=== PATIENT | male | born 1950 | race Caucasian/White ===

== ENCOUNTER 2024-03-27 15:24 | Inpatient (IN) ==
[2024-03-27 15:52] LABS: Base Excess VBG 1.5 mEq/L; HCO3 VBG 26 mmol/L; Oxygen Saturation VBG 94.7 %; PCO2 VBG 39 mmHg (38-50); PO2 VBG 67 mmHg; pH VBG 7.43 (7.36-7.41)
[2024-03-27 15:54] LABS: iSTAT Creatinine 3.1 mg/dl (0.6-1.3); iSTAT Hemoglobin 13.3 g/dl (14.0-18.0); iSTAT Ionized Calcium 1.07 mmol/l (1.12-1.32); iSTAT Potassium 3.8 mmol/L (3.3-5.0)
--- NOTE | 2024-03-27 15:56 | XRay Report ---
EXAM: Radiograph of the Chest 1 View INDICATION: Sepsis. TECHNIQUE: Frontal view of the chest. COMPARISON: No relevant prior studies available. FINDINGS: Lungs and pleural spaces: There is either a small medial left basilar infiltrate or small hiatal hernia. No pleural effusion or pneumothorax. Heart: Shape and configuration within normal limits allowing for technique. Mediastinum: See above. Bones/joints: Scoliotic spine without acute osseous abnormality. Soft tissues: No abnormality noted. No radiopaque foreign body noted. Upper abdomen: No abnormality noted. IMPRESSION: There is either a small medial left basilar infiltrate or small hiatal hernia. ACT 112: Negative or not required by law. Electronically signed by Jessica Brito 03-27-2024 3:55 PM
[2024-03-27 16:05] LABS: Basophils # (auto) 0.03 K/uL (0.00-0.20); Basophils % (auto) 0.2 %; Hematocrit (blood only) 38.9 % (42.0-52.0); Hemoglobin 12.9 g/dl (14.0-18.0); Immature Granulocytes # (auto) 0.27 K/uL (0.01-0.20); Immature Granulocytes % (auto) 1.5 %; Lymphocytes # (auto) 0.66 K/uL (1.20-3.40); Lymphocytes % (auto) 3.7 %; Mean Corpuscular Hemoglobin 30.1 pg (25.0-34.0); Mean Corpuscular Hgb Conc 33.2 g/dL (32.0-36.0); Mean Corpuscular Volume 90.7 fL (80.0-100.0); Mean Platelet Volume 9.8 fL (9.4-12.4); Monocytes # (auto) 1.71 K/uL (0.11-0.59); Monocytes % (auto) 9.5 %; Neutrophils # (auto) 15.34 K/uL (1.40-6.50); Neutrophils % (auto) 85.1 %; Platelet Count 129 K/uL (130-400); RDW Coefficient of Variation 13.2 % (11.5-14.5); RDW Standard Deviation 43.8 fL (36.4-46.3); Red Blood Count 4.29 M/uL (4.70-6.10); White Blood Count 18.01 K/ul (4.8-10.8)
--- NOTE | 2024-03-27 16:14 | CT Scan Report ---
EXAM: CT Abdomen and Pelvis Without Intravenous Contrast INDICATION: Nausea and vomiting. Fever. TECHNIQUE: Axial computed tomography images of the abdomen and pelvis without intravenous contrast. Sagittal and coronal reformatted images were created and reviewed. This CT exam was performed using one or more of the following dose reduction techniques: automated exposure control, adjustment of the mA and/or kV according to patient size, and/or use of iterative reconstruction technique. COMPARISON: No relevant prior studies available. FINDINGS: Limitations: None. Lung bases: There is dependent atelectasis. Pleural space: Trace layering bilateral pleural effusions present. Heart: Mild cardiomegaly. No pericardial effusion. Mediastinum: No abnormality noted. ABDOMEN: Liver: Lack of intravenous contrast limits detection of some masses. No abnormality noted. Gallbladder and bile ducts: No calcified stones or surrounding fluid. Pancreas: No pancreatic mass, calcification, inflammation or ductal dilation noted. Spleen: No significant abnormality noted. Adrenals: No significant abnormality noted. Kidneys and ureters: Bilateral renal cortical and perinephric scarring noted. No urinary gas, hydronephrosis or perinephric fluid. Stomach and bowel: Scattered stool in the colon. No intestinal thickening, adjacent inflammation or obstruction. Suboptimally assessed collapsed stomach. PELVIS: Appendix: No findings to suggest acute appendicitis. Bladder: Appears normal for the degree of filling. No stones or inflammation. No large mass. Masses may not be detected in the absence of opacification. Reproductive: Cystic structure right scrotum could be a hydrocele or cyst. Appearance benign. ABDOMEN and PELVIS: Intraperitoneal space: Trace fluid in the pelvis. Bones/joints: Degenerative changes noted throughout the spine. No acute osseous abnormality seen. Diffuse spinal degenerative change. No acute osseous abnormality. There is L4-L5 spinal stenosis. No paraspinal soft tissue edema or fluid. Vasculature: The aorta is atherosclerotic. The distal aorta is aneurysmal to 3.4 cm. No hemorrhage or rupture. Lymph nodes: No pathologically enlarged lymph nodes. IMPRESSION: 1. Very small amounts of nonspecific free fluid in the pelvis without abscess, inflammation or intestinal obstruction. 2. Trace bilateral pleural effusions and dependent atelectasis. 3. 3.4 cm distal abdominal aortic aneurysm without rupture. Recommend abdomen/pelvis CT or MR imaging follow-up in 3 years. ACT 112: Negative or not required by law. Electronically signed by Jessica Brito 03-27-2024 4:13 PM
--- NOTE | 2024-03-27 16:16 | CT Scan Report ---
EXAM: CT Head Without Intravenous Contrast INDICATION: Lethargy. Fever. TECHNIQUE: Axial computed tomography images of the head/brain without intravenous contrast. Sagittal and/or coronal reformats are provided. Sagittal and coronal reformatted images were created and reviewed. This CT exam was performed using one or more of the following dose reduction techniques: automated exposure control, adjustment of the mA and/or kV according to patient size, and/or use of iterative reconstruction technique. COMPARISON: No relevant prior studies available. FINDINGS: Limitations: None. Brain and extra-axial spaces: There is age appropriate cortical atrophy and chronic ischemic periventricular white matter hypodensity. No acute infarct, hemorrhage or mass noted. Bones/joints: No acute changes. Soft tissues: No significant abnormality noted. Vasculature: Atherosclerotic calcification in the vertebral and carotid arteries. Sinuses: No layering fluid in the visualized portions of the paranasal sinuses. Mastoid air cells: Chronic mucosal thickening left middle ear and mastoid air cells. Orbits: No significant abnormality noted. IMPRESSION: 1. Cerebral atrophy. No acute changes. 2. Chronic left otomastoiditis. ACT 112: Negative or not required by law. Electronically signed by Jessica Brito 03-27-2024 4:15 PM
--- NOTE | 2024-03-27 16:20 | Emergency Department Note ---
History of Present Illness General Chief complaint: Stroke/CVA Symptoms Time Seen by Provider: 03/27/24 15:30 Source: family and EMS History of Present Illness Provider complaint: Altered mental status 73-year-old male presents emergency department via EMS for altered mental status. Family reports that for the last 2 days patient has been having increased confusion. 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 They state that yesterday he started having diarrhea and was complaining of right ear pain and then progressively getting more confused throughout the day. EMS reports that when they got there the patient had a right-sided facial droop was confused and had a temperature of 102.1. EMS initiated IV fluids and 1 g of IV Tylenol. Patient was 90% on room air and after supplemental oxygen via nasal cannula was 96% on 2 L nasal cannula. 300 cc normal saline given by the EMS crew. Home Medications Medication Instructions Recorded Confirmed Type lisinopril 20 mg tablet 20 mg PO HS 03/27/24 03/27/24 History Allergies Allergy/AdvReac Type Severity Reaction Status Date / Time No Known Allergies Allergy Unverified 03/27/24 18:06 Past Med/Surg History Problem List (Updated 03/27/24 @ 21:25 by Kristian Martinez MD) YOSEPH (acute kidney injury) (Acute) Altered mental status (Acute) Sepsis HTN (hypertension) Social History Smoking Status: Never smoker Physical Exam Vital Signs Vital Signs - 24 hr 03/27/24 15:30 03/27/24 16:04 03/27/24 16:15 Temperature 37.0 C 37.0 C Temperature Source Oral Rectal Pulse Rate 97 H 100 H Pulse Rate [Apical] 86 Pulse Rate from SpO2 Sensor Respiratory Rate 22 20 Respiratory Effort / Characteristics Respiratory Depth Respiratory Pattern Blood Pressure 147/80 H Blood Pressure [Right Arm] 135/82 Blood Pressure Mean 102 Blood Pressure Mean [Right Arm] 99 Pulse Oximetry 94 95 Oxygen Delivery Method Room Air Room Air Oxygen Flow Rate Sepsis Recent Fever Within 48 Hours Yes Sepsis New/Unexplained Change in Mental Status Yes Sepsis Action Taken by Nursing Physician Notified 03/27/24 16:23 03/27/24 16:45 03/27/24 17:00 Temperature Temperature Source Pulse Rate 84 Pulse Rate [Apical] 84 Pulse Rate from SpO2 Sensor 83 Respiratory Rate 18 18 Respiratory Effort / Characteristics Respiratory Depth Respiratory Pattern Blood Pressure 156/90 H Blood Pressure [Right Arm] 154/84 H Blood Pressure Mean 106 Blood Pressure Mean [Right Arm] 107 Pulse Oximetry 96 94 Oxygen Delivery Method Room Air Room Air Oxygen Flow Rate Sepsis Recent Fever Within 48 Hours Sepsis New/Unexplained Change in Mental Status Sepsis Action Taken by Nursing 03/27/24 17:12 03/27/24 17:30 03/27/24 18:00 Temperature Temperature Source Pulse Rate 82 79 88 Pulse Rate [Apical] Pulse Rate from SpO2 Sensor 80 87 Respiratory Rate 17 13 18 Respiratory Effort / Characteristics Respiratory Depth Respiratory Pattern Blood Pressure 143/80 H 152/83 H Blood Pressure [Right Arm] Blood Pressure Mean 101 106 Blood Pressure Mean [Right Arm] Pulse Oximetry 95 94 Oxygen Delivery Method Oxygen Flow Rate Sepsis Recent Fever Within 48 Hours Sepsis New/Unexplained Change in Mental Status Sepsis Action Taken by Nursing 03/27/24 18:15 03/27/24 18:23 03/27/24 18:30 Temperature Temperature Source Pulse Rate 83 Pulse Rate [Apical] 86 Pulse Rate from SpO2 Sensor 84 Respiratory Rate 18 16 Respiratory Effort / Characteristics Non-Labored Spontaneous Respiratory Depth Normal Respiratory Pattern Regular Blood Pressure 148/86 H 154/78 H Blood Pressure [Right Arm] 153/93 H Blood Pressure Mean 106 102 Blood Pressure Mean [Right Arm] 113 Pulse Oximetry 95 95 Oxygen Delivery Method Room Air Oxygen Flow Rate Sepsis Recent Fever Within 48 Hours Sepsis New/Unexplained Change in Mental Status Sepsis Action Taken by Nursing 03/27/24 18:45 03/27/24 18:48 03/27/24 19:24 Temperature Temperature Source Pulse Rate 83 Pulse Rate [Apical] 88 Pulse Rate from SpO2 Sensor 82 68 Respiratory Rate 18 26 H Respiratory Effort / Characteristics Non-Labored Spontaneous Respiratory Depth Normal Respiratory Pattern Regular Blood Pressure 167/90 H Blood Pressure [Right Arm] 154/78 H Blood Pressure Mean 115 Blood Pressure Mean [Right Arm] 103 Pulse Oximetry 96 98 99 Oxygen Delivery Method Nasal Cannula Oxygen Flow Rate 2 Sepsis Recent Fever Within 48 Hours Sepsis New/Unexplained Change in Mental Status Sepsis Action Taken by Nursing 03/27/24 19:41 03/27/24 19:41 03/27/24 19:41 Temperature Temperature Source Pulse Rate Pulse Rate [Apical] Pulse Rate from SpO2 Sensor 68 Respiratory Rate Respiratory Effort / Characteristics Respiratory Depth Respiratory Pattern Blood Pressure 110/67 110/67 110/67 Blood Pressure [Right Arm] Blood Pressure Mean 82 82 82 Blood Pressure Mean [Right Arm] Pulse Oximetry 99 Oxygen Delivery Method Oxygen Flow Rate Sepsis Recent Fever Within 48 Hours Sepsis New/Unexplained Change in Mental Status Sepsis Action Taken by Nursing 03/27/24 19:42 03/27/24 19:45 03/27/24 20:22 Temperature Temperature Source Pulse Rate 69 73 Pulse Rate [Apical] 79 Pulse Rate from SpO2 Sensor 69 73 Respiratory Rate 19 16 18 Respiratory Effort / Characteristics Respiratory Depth Respiratory Pattern Blood Pressure Blood Pressure [Right Arm] 109/65 Blood Pressure Mean Blood Pressure Mean [Right Arm] 79 Pulse Oximetry 99 98 95 Oxygen Delivery Method Room Air Oxygen Flow Rate Sepsis Recent Fever Within 48 Hours Sepsis New/Unexplained Change in Mental Status Sepsis Action Taken by Nursing Physical Exam GENERAL: Ill-appearing. HENT: Exam performed. - Head: Normocephalic and atraumatic. - Right Ear: External ear normal. No mastoid erythema or tenderness. Right- sided tympanic membrane navarro and pearly. - Left Ear: External ear normal. No mastoid erythema or tenderness.'s cerumen impacted auditory canal. - Mouth/Throat: Dry mucous membranes. EYES: Conjunctivae and EOM are normal. Pupils are equal, round, and reactive to light. Right eye exhibits no discharge. Left eye exhibits no discharge. No scleral icterus. NECK: No JVD present. No carotid bruit present. CV: Normal rate, regular rhythm, normal heart sounds and intact distal pulses. There is no peripheral edema. Palpable radial pulses bue. PULM/CHEST: Rhonchi bilaterally. ABD: The abdomen is soft. There is no tenderness. There is no rebound, no guarding NEURO: Patient appears confused and is unable to provide history or follow commands. GCS: 11 (E:4, V:3, M:4). Mild right-sided facial droop. Course Course 1530: The patient was evaluated in room A9. A complete history and physical exam was performed Cardiac monitoring: An order was placed for continuous cardiac monitoring. The monitor shows a rate of 90 with sinus rhythm interpreted by nm Sepsis protocols were initiated. 1546: Patient's [id number]-[id number] creatinine is elevated. Will obtain CT without contrast. 1715: Vital signs stable. Patient afebrile in the emergency department. Leukocytosis of 18. Lactic acid within normal limits. Urinalysis might be the culprit, Rocephin empirically ordered for the patient. 1759: Vital signs stable. On reassessment the patient appears much better. He is now alert and oriented x 3. He is not reporting any headache difficulty breathing chest pain abdominal pain. On reassessment, patient has negative Brudzinski sign and negative Kernig sign. No photophobia. GCS now 15. Patient is not reporting any headache. No facial droop on reassessment. I did attempt to use a curette to remove some of the wax from the patient's left ear and while significant amount was removed the tympanic membrane was still not able to be fully visualized. I did consider diagnosis of meningitis/encephalitis however after the reassessment of the patient not reporting any headache, now having a GCS of 15, no photophobia, no meningeal signs, and being alert and oriented x 3 I think this is less likely. I did discuss the possibility of performing lumbar puncture with the patient and the family at bedside and the family and patient at bedside states that they do not want to perform this unless absolutely necessary. They are in agreement for admission to the hospital. Other differentials could be bacteremia versus any sort of GI illness as the patient's family was reporting that he was having diarrhea yesterday. Stool studies are pending. Will discuss the case with hospitalist team about admission. 185: Discussed the case with on-call neurology Dr. Rios as well as [facility] hospitalist Dr. Ceja. After discussing with the 2 of them, they thought it would be best to attempt LP to rule out meningitis/encephalitis. I discussed this with the patient's son who is in agreement with the plan after discussing with the hospitalist also. Consent was signed by son and placed on the chart. 1945: LP was attempted however was not successful in getting CSF sample despite multiple attempts in both the seated upright and lateral decubitus position. Family as well as [facility] hospitalist team were made aware of this. Ampicillin, acyclovir, and vancomycin was ordered for coverage of any possible encephalitis/meningitis. [facility] hospitalist team will contact IR in the morning to perform lumbar puncture. 2100: Patient resting comfortably. Patient neurovascular intact with palpable DP and PT pulses and motor and sensation intact in the bilateral lower extremities. Administered Medications Discontinued Medications Sodium Chloride (Nss) 1,000 mls @ 999 mls/hr IV .Q1H1M ONE Stop: 03/27/24 17:33 Last Infusion: 03/27/24 17:31 Dose: Infused Documented By: Admin: 03/27/24 16:33 Dose: 999 mls/hr Documented By: CHARLY Ceftriaxone Sodium (Rocephin) 2,000 mg in 50 mls @ 100 mls/hr IV NOW STA Stop: 03/27/24 17:02 Last Infusion: 03/27/24 17:16 Dose: Infused Documented By: Admin: 03/27/24 16:46 Dose: 100 mls/hr Documented By: CHARLY Sodium Chloride (Nss) 1,000 mls @ 125 mls/hr IV .Q8H DONNA Stop: 03/28/24 17:59 Last Admin: 03/27/24 19:45 Dose: 125 mls/hr Documented By: CHARLY Lidocaine HCl (Lidocaine 1% Local 20 Ml Vial) Confirm Administered Dose 1 ml .ROUTE .STK-MED ONE Stop: 03/27/24 18:36 Last Admin: 03/27/24 19:46 Dose: Not Given Documented By: CHARLY Lorazepam (Lorazepam 1 Mg/1 Ml Syr Ed Inj Use) 2 mg IV ONE STA Stop: 03/27/24 18:44 Last Admin: 03/27/24 18:55 Dose: 1 mg Documented By: CHARLY Morphine Sulfate (Morphine Sulfate 4 Mg/Ml 1 Ml Carp\Vial) Confirm Administered Dose 4 mg .ROUTE .STK-MED ONE Stop: 03/27/24 18:42 Last Admin: 03/27/24 18:50 Dose: 4 mg Documented By: CHARLY Morphine Sulfate (Morphine Sulfate 4 Mg/Ml 1 Ml Carp\Vial) 4 mg IV NOW STA Stop: 03/27/24 18:44 Last Admin: 03/27/24 18:49 Dose: Not Given Documented By: KRISTOFER Ondansetron HCl (Ondansetron Inj 2 Mg/Ml 2 Ml Vial) Confirm Administered Dose 4 mg .ROUTE .STK-MED ONE Stop: 03/27/24 18:42 Last Admin: 03/27/24 18:46 Dose: 4 mg Documented By: KRISTOFER Medical Decision Making Laboratory Data Attestation: I reviewed the patient's lab results. 03/27/24 15:37 03/27/24 15:37 Lab Results 01/12/25 01/12/25 01/12/25 Range/Units 15:37 15:42 16:22 WBC 18.01 H (4.8-10.8) K/ul RBC 4.29 L (4.70-6.10) M/uL Hgb 12.9 L (14.0-18.0) g/dl POC Hgb 13.3 L (14.0-18.0) g/dl Hct 38.9 L (42.0-52.0) % POC Hct 39 L (42-52) % MCV 90.7 (80.0-100.0) fL MCH 30.1 (25.0-34.0) pg MCHC 33.2 (32.0-36.0) g/dL RDW Std Deviation 43.8 (36.4-46.3) fL RDW Coeff of Shaji 13.2 (11.5-14.5) % Plt Count 129 L (130-400) K/uL MPV 9.8 (9.4-12.4) fL Immature Gran % (Auto) 1.5 % Neut % (Auto) 85.1 % Lymph % (Auto) 3.7 % Rich % (Auto) 9.5 % Eos % (Auto) 0.0 % Baso % (Auto) 0.2 % Neut # (Auto) 15.34 H (1.40-6.50) K/uL Lymph # (Auto) 0.66 L (1.20-3.40) K/uL Rich # (Auto) 1.71 H (0.11-0.59) K/uL Eos # (Auto) 0.00 (0.00-0.50) K/uL Baso # (Auto) 0.03 (0.00-0.20) K/uL Immature Gran # (Auto) 0.27 H (0.01-0.20) K/uL PT 12.7 H (9.0-12.0) Seconds INR 1.2 H (0.9-1.1) APTT 32 H (21-31) Seconds PTT Ratio 1.2 VBG pH 7.43 H (7.36-7.41) VBG pCO2 39 (38-50) mmHg VBG pO2 67 mmHg VBG HCO3 26 mmol/L VBG O2 Saturation 94.7 % VBG Base Excess 1.5 mEq/L POC Sodium 136 (135-144) mmol/L Sodium 136 (136-145) mmol/L POC Potassium 3.8 (3.3-5.0) mmol/L Potassium 3.9 (3.5-5.1) mmol/L POC Chloride 103 (101-112) mmol/L Chloride 102 (98-107) mmol/L Carbon Dioxide 24 (21-32) mmol/L POC Total CO2 22 L (24-31) mmol/L Anion Gap 10 (3-11) POC Anion Gap 16.0 (16-25) mmol/L POC BUN 43 H (7-18) mg/dl BUN 48 H (6-23) mg/dl Creatinine 2.81 H (0.6-1.4) mg/dl POC Creatinine 3.1 H (0.6-1.3) mg/dl Est Cr Clr Drug Dosing 22.7 ml/min eGFR 23.00 BUN/Creatinine Ratio 17.1 (10-20) Glucose 129 H (70-99(Fasting)) mg/dl POC Glucose (other) 132 H (70-99) mg/dl Lactate 0.7 (0.4-2.0) mmol/L Calcium 8.5 L (8.6-10.3) mg/dl POC Ioniz Calcium Justina 1.07 L (1.12-1.32) mmol/l Magnesium 1.9 (1.7-2.4) mg/dl Total Bilirubin 0.9 (0.2-1.0) mg/dl Direct Bilirubin 0.2 (0-0.2) mg/dl AST 20 (13-39) U/L ALT 23 (7-52) U/L Alkaline Phosphatase 61 (34-104) U/L Troponin I High Sens 74.9 H* (0-20) pg/ml Total Protein 6.1 (6.0-8.3) gm/dl Albumin 3.5 (3.4-5.0) gm/dl Lipase 30 (11-82) U/L Procalcitonin 4.07 H (0-0.5) ng/ml Urine Color Urine Appearance (Clear) Urine pH (4.5-7.5) Ur Specific [place] (1.000-1.030) Urine Protein (Negative) Urine Glucose (UA) (Negative) Urine Ketones (Negative) Urine Blood (Negative) Urine Nitrite (Negative) Urine Bilirubin (Negative) Urine Urobilinogen (Negative) Ur Leukocyte Esterase (Negative) Urine WBC (Auto) (0-5) /hpf Urine RBC (Auto) (0-2) /hpf U Hyaline Cast (Auto) (0-2) /lpf U Epithel Cells (Auto) (0-2) /hpf Urine Bacteria (Auto) (None Seen) Adenovirus (PCR) Not Detected (NotDetected) Anaplasma Smear See Comment Babesia Smear See Comment B. pertussis DNA (PCR) Not Detected (NotDetected) B.parapertussis DNA PCR Not Detected (NotDetected) Lyme Disease Screen Negative (Negative) C. pneumoniae DNA (PCR) Not Detected (NotDetected) Coronavirus OC43 (PCR) Not Detected (NotDetected) Coronavirus HKU1 (PCR) Not Detected (NotDetected) Coronavirus 229E (PCR) Not Detected (NotDetected) SARS-CoV-2 (PCR) Not Detected (NotDetected) Coronavirus NL63 (PCR) Not Detected (NotDetected) Human Metapneumovir PCR Not Detected (NotDetected) Influenza Type A (PCR) Not Detected (NotDetected) Influenza Type B (PCR) Not Detected (NotDetected) M. pneumoniae (PCR) Not Detected (NotDetected) Parainfluenza 1 (PCR) Not Detected (NotDetected) Parainfluenza 2 (PCR) Not Detected (NotDetected) Parainfluenza 3 (PCR) Not Detected (NotDetected) Parainfluenza 4 (PCR) Not Detected (NotDetected) RSV (PCR) Not Detected (NotDetected) Entero/Rhino (PCR) Not Detected (NotDetected) 03/27/24 03/27/24 Range/Units 17:05 18:02 WBC (4.8-10.8) K/ul RBC (4.70-6.10) M/uL Hgb (14.0-18.0) g/dl POC Hgb (14.0-18.0) g/dl Hct (42.0-52.0) % POC Hct (42-52) % MCV (80.0-100.0) fL MCH (25.0-34.0) pg MCHC (32.0-36.0) g/dL RDW Std Deviation (36.4-46.3) fL RDW Coeff of Shaji (11.5-14.5) % Plt Count (130-400) K/uL MPV (9.4-12.4) fL Immature Gran % (Auto) % Neut % (Auto) % Lymph % (Auto) % Rich % (Auto) % Eos % (Auto) % Baso % (Auto) % Neut # (Auto) (1.40-6.50) K/uL Lymph # (Auto) (1.20-3.40) K/uL Rich # (Auto) (0.11-0.59) K/uL Eos # (Auto) (0.00-0.50) K/uL Baso # (Auto) (0.00-0.20) K/uL Immature Gran # (Auto) (0.01-0.20) K/uL PT (9.0-12.0) Seconds INR (0.9-1.1) APTT (21-31) Seconds PTT Ratio VBG pH (7.36-7.41) VBG pCO2 (38-50) mmHg VBG pO2 mmHg VBG HCO3 mmol/L VBG O2 Saturation % VBG Base Excess mEq/L POC Sodium (135-144) mmol/L Sodium (136-145) mmol/L POC Potassium (3.3-5.0) mmol/L Potassium (3.5-5.1) mmol/L POC Chloride (101-112) mmol/L Chloride (98-107) mmol/L Carbon Dioxide (21-32) mmol/L POC Total CO2 (24-31) mmol/L Anion Gap (3-11) POC Anion Gap (16-25) mmol/L POC BUN (7-18) mg/dl BUN (6-23) mg/dl Creatinine (0.6-1.4) mg/dl POC Creatinine (0.6-1.3) mg/dl Est Cr Clr Drug Dosing ml/min eGFR BUN/Creatinine Ratio (10-20) Glucose (70-99(Fasting)) mg/dl POC Glucose (other) (70-99) mg/dl Lactate (0.4-2.0) mmol/L Calcium (8.6-10.3) mg/dl POC Ioniz Calcium Justina (1.12-1.32) mmol/l Magnesium (1.7-2.4) mg/dl Total Bilirubin (0.2-1.0) mg/dl Direct Bilirubin (0-0.2) mg/dl AST (13-39) U/L ALT (7-52) U/L Alkaline Phosphatase (34-104) U/L Troponin I High Sens 92.1 H* D (0-20) pg/ml Total Protein (6.0-8.3) gm/dl Albumin (3.4-5.0) gm/dl Lipase (11-82) U/L Procalcitonin (0-0.5) ng/ml Urine Color Yellow Urine Appearance Clear (Clear) Urine pH 7.0 (4.5-7.5) Ur Specific [place] 1.018 (1.000-1.030) Urine Protein 2+ H (Negative) Urine Glucose (UA) Negative (Negative) Urine Ketones Negative (Negative) Urine Blood Negative (Negative) Urine Nitrite Negative (Negative) Urine Bilirubin Negative (Negative) Urine Urobilinogen Negative (Negative) Ur Leukocyte Esterase Negative (Negative) Urine WBC (Auto) 0-5 (0-5) /hpf Urine RBC (Auto) 0-2 (0-2) /hpf U Hyaline Cast (Auto) 0-2 (0-2) /lpf U Epithel Cells (Auto) 0-2 (0-2) /hpf Urine Bacteria (Auto) None Seen (None Seen) Adenovirus (PCR) (NotDetected) Anaplasma Smear Babesia Smear B. pertussis DNA (PCR) (NotDetected) B.parapertussis DNA PCR (NotDetected) Lyme Disease Screen (Negative) C. pneumoniae DNA (PCR) (NotDetected) Coronavirus OC43 (PCR) (NotDetected) Coronavirus HKU1 (PCR) (NotDetected) Coronavirus 229E (PCR) (NotDetected) SARS-CoV-2 (PCR) (NotDetected) Coronavirus NL63 (PCR) (NotDetected) Human Metapneumovir PCR (NotDetected) Influenza Type A (PCR) (NotDetected) Influenza Type B (PCR) (NotDetected) M. pneumoniae (PCR) (NotDetected) Parainfluenza 1 (PCR) (NotDetected) Parainfluenza 2 (PCR) (NotDetected) Parainfluenza 3 (PCR) (NotDetected) Parainfluenza 4 (PCR) (NotDetected) RSV (PCR) (NotDetected) Entero/Rhino (PCR) (NotDetected) Imaging Data Attestation: I personally reviewed and interpreted this imaging study as follows: My Impression: Chest x-ray: Chest x-ray negative. Airway clear. No pneumothorax. No consolidation. No cardiomegaly or cephalization.. No free air under the diaphragm. No fractures of the skeletal structures. CT head: No [facility] Radiologist's Impression: Chest X-Ray 03/27/24 15:30 EXAM: Radiograph of the Chest 1 View INDICATION: Sepsis. TECHNIQUE: Frontal view of the chest. COMPARISON: No relevant prior studies available. FINDINGS: Lungs and pleural spaces: There is either a small medial left basilar infiltrate or small hiatal hernia. No pleural effusion or pneumothorax. Heart: Shape and configuration within normal limits allowing for technique. Mediastinum: See above. Bones/joints: Scoliotic spine without acute osseous abnormality. Soft tissues: No abnormality noted. No radiopaque foreign body noted. Upper abdomen: No abnormality noted. IMPRESSION: There is either a small medial left basilar infiltrate or small hiatal hernia. ACT 112: Negative or not required by law. Electronically signed by Jessica Brito 03-27-2024 3:[address] 03/27/24 15:30 EXAM: CT Head Without Intravenous Contrast INDICATION: Lethargy. Fever. TECHNIQUE: Axial computed tomography images of the head/brain without intravenous contrast. Sagittal and/or coronal reformats are provided. Sagittal and coronal reformatted images were created and reviewed. This CT exam was performed using one or more of the following dose reduction techniques: automated exposure control, adjustment of the mA and/or kV according to patient size, and/or use of iterative reconstruction technique. COMPARISON: No relevant prior studies available. FINDINGS: Limitations: None. Brain and extra-axial spaces: There is age appropriate cortical atrophy and chronic ischemic periventricular white matter hypodensity. No acute infarct, hemorrhage or mass noted. Bones/joints: No acute changes. Soft tissues: No significant abnormality noted. Vasculature: Atherosclerotic calcification in the vertebral and carotid arteries. Sinuses: No layering fluid in the visualized portions of the paranasal sinuses. Mastoid air cells: Chronic mucosal thickening left middle ear and mastoid air cells. Orbits: No significant abnormality noted. IMPRESSION: 1. Cerebral atrophy. No acute changes. 2. Chronic left otomastoiditis. ACT 112: Negative or not required by law. Electronically signed by Daryl Jessica 03-27-2024 4:15 PM Abdomen/Pelvis CT 03/27/24 15:46 EXAM: CT Abdomen and Pelvis Without Intravenous Contrast INDICATION: Nausea and vomiting. Fever. TECHNIQUE: Axial computed tomography images of the abdomen and pelvis without intravenous contrast. Sagittal and coronal reformatted images were created and reviewed. This CT exam was performed using one or more of the following dose reduction techniques: automated exposure control, adjustment of the mA and/or kV according to patient size, and/or use of iterative reconstruction technique. COMPARISON: No relevant prior studies available. FINDINGS: Limitations: None. Lung bases: There is dependent atelectasis. Pleural space: Trace layering bilateral pleural effusions present. Heart: Mild cardiomegaly. No pericardial effusion. Mediastinum: No abnormality noted. ABDOMEN: Liver: Lack of intravenous contrast limits detection of some masses. No abnormality noted. Gallbladder and bile ducts: No calcified stones or surrounding fluid. Pancreas: No pancreatic mass, calcification, inflammation or ductal dilation noted. Spleen: No significant abnormality noted. Adrenals: No significant abnormality noted. Kidneys and ureters: Bilateral renal cortical and perinephric scarring noted. No urinary gas, hydronephrosis or perinephric fluid. Stomach and bowel: Scattered stool in the colon. No intestinal thickening, adjacent inflammation or obstruction. Suboptimally assessed collapsed stomach. PELVIS: Appendix: No findings to suggest acute appendicitis. Bladder: Appears normal for the degree of filling. No stones or inflammation. No large mass. Masses may not be detected in the absence of opacification. Reproductive: Cystic structure right scrotum could be a hydrocele or cyst. Appearance benign. ABDOMEN and PELVIS: Intraperitoneal space: Trace fluid in the pelvis. Bones/joints: Degenerative changes noted throughout the spine. No acute osseous abnormality seen. Diffuse spinal degenerative change. No acute osseous abnormality. There is L4-L5 spinal stenosis. No paraspinal soft tissue edema or fluid. Vasculature: The aorta is atherosclerotic. The distal aorta is aneurysmal to 3.4 cm. No hemorrhage or rupture. Lymph nodes: No pathologically enlarged lymph nodes. IMPRESSION: 1. Very small amounts of nonspecific free fluid in the pelvis without abscess, inflammation or intestinal obstruction. 2. Trace bilateral pleural effusions and dependent atelectasis. 3. 3.4 cm distal abdominal aortic aneurysm without rupture. Recommend abdomen/pelvis CT or MR imaging follow-up in 3 years. ACT 112: Negative or not required by law. Electronically signed by Jessica Brito 03-27-2024 4:13 PM ECG Data Attestation: I personally reviewed and interpreted this ECG as follows: Rate (beats per minute): 91 Rhythm: + normal sinus ECG Intervals/blocks: + Normal QRS, + Normal GA and + Normal QT-c ECG ST segments: + Normal ST segments MDM Narrative 1530: The patient was evaluated in room A9. A complete history and physical exam was performed Cardiac monitoring: An order was placed for continuous cardiac monitoring. The monitor shows a rate of 90 with sinus rhythm interpreted by me Sepsis protocols were initiated. 1546: Patient's [id number] creatinine is elevated. Will obtain CT without contrast. 1715: Vital signs stable. Patient afebrile in the emergency department. Leukocytosis of 18. Lactic acid within normal limits. Urinalysis might be the culprit, Rocephin empirically ordered for the patient. 1759: Vital signs stable. On reassessment the patient appears much better. He is now alert and oriented x 3. He is not reporting any headache difficulty breathing chest pain abdominal pain. On reassessment, patient has negative Brudzinski sign and negative Kernig sign. No photophobia. GCS now 15. Patient is not reporting any headache. No facial droop on reassessment. I did attempt to use a curette to remove some of the wax from the patient's left ear and while significant amount was removed the tympanic membrane was still not able to be fully visualized. I did consider diagnosis of meningitis/encephalitis however after the reassessment of the patient not reporting any headache, now having a GCS of 15, no photophobia, no meningeal signs, and being alert and oriented x 3 I think this is less likely. I did discuss the possibility of performing lumbar puncture with the patient and the family at bedside and the family and patient at bedside states that they do not want to perform this unless absolutely necessary. They are in agreement for admission to the hospital. Other differentials could be bacteremia versus any sort of GI illness as the patient's family was reporting that he was having diarrhea yesterday. Stool studies are pending. Will discuss the case with hospitalist team about admission. 1850: Discussed the case with on-call neurology Dr. Rios as well as [facility] hospitalist Dr. Ceja. After discussing with the 2 of them, they thought it would be best to attempt LP to rule out meningitis/encephalitis. I discussed this with the patient's son who is in agreement with the plan after discussing with the hospitalist also. Consent was signed by son and placed on the chart. 194: LP was attempted however was not successful in getting CSF sample despite multiple attempts in both the seated upright and lateral decubitus position. [facility]. Ampicillin, acyclovir, and vancomycin was ordered for coverage of any possible encephalitis/meningitis. [facility] hospitalist team will contact IR in the morning to perform lumbar puncture. 2100: Patient resting comfortably. Patient neurovascular intact with palpable DP and PT pulses and motor and sensation intact in the bilateral lower extremities. Impression & Plan Altered mental status, YOSEPH (acute kidney injury) Discharge Plan Visit Data Chief Complaint: Stroke/CVA Symptoms ED Provider: Kristian Martinez Discharge Problem: Altered mental status, YOSEPH (acute kidney injury) Patient Disposition: Admitted As Inpatient Discharge Instructions Interventions: ED Discharge Assessment Last Done: 03/27/24 20:45 Prescriptions Prescriptions: No Action lisinopril 20 mg tablet 20 mg PO HS
[2024-03-27 16:25] LABS: Albumin Level 3.5 gm/dl (3.4-5.0); BUN Creatinine Ratio 17.1 (10-20); Bilirubin Direct 0.2 mg/dl (0-0.2); Bilirubin,Total 0.9 mg/dl (0.2-1.0); Calcium 8.5 mg/dl (8.6-10.3); Creatinine Clr Calc Pharmacy 22.7 ml/min; Magnesium 1.9 mg/dl (1.7-2.4); Potassium 3.9 mmol/L (3.5-5.1); Total Protein 6.1 gm/dl (6.0-8.3)
[2024-03-27 16:27] LABS: Procalcitonin 4.07 ng/ml (0-0.5)
[2024-03-27 16:32] LABS: INR 1.2 (0.9-1.1); Partial Thromboplastin Ratio 1.2; Partial Thromboplastin Time 32 Seconds (21-31); Prothrombin Time 12.7 Seconds (9.0-12.0)
[2024-03-27] MEDS: SODIUM CHLORIDE 0.9% 1,000 ML IV ONE (16:33)
[2024-03-27 16:38] LABS: Troponin I High Sensitivity 74.9 pg/ml (0-20)
[2024-03-27] MEDS: cefTRIAXone SODIUM 2,000 MG/50 ML BAG IV STA (16:46)
[2024-03-27 16:53] LABS: Lyme Screen Rflx Confirmation Negative (Negative)
[2024-03-27 17:20] LABS: Appearance Urine Clear (Clear); Bacteria Urine Automated None Seen (None Seen); Bilirubin Urine Negative (Negative); Blood Urine Negative (Negative); Cast Urine Automated 0-2 /lpf (0-2); Color Urine Yellow; Epithelial Cell Urine Auto 0-2 /hpf (0-2); Glucose Urine UA Negative (Negative); Ketones Urine Negative (Negative); Leukocyte Esterase Urine Negative (Negative); Nitrite Urine Negative (Negative); Protein Urine 2+ (Negative); RBC Urine Automated 0-2 /hpf (0-2); Specific Gravity Urine 1.018 (1.000-1.030); Urobilinogen Urine Negative (Negative); WBC Urine Automated 0-5 /hpf (0-5)
[2024-03-27 17:37] LABS: Adenovirus PCR Not Detected (NotDetected); Bordetella parapertussis PCR Not Detected (NotDetected); Bordetella pertussis PCR Not Detected (NotDetected); Chlamydia pneumoniae PCR Not Detected (NotDetected); Coronavirus 229E PCR Not Detected (NotDetected); Coronavirus CoV-2 (COVID19)PCR Not Detected (NotDetected); Coronavirus HKU1 PCR Not Detected (NotDetected); Coronavirus NL63 PCR Not Detected (NotDetected); Coronavirus OC43PCR Not Detected (NotDetected); Human Metapneumovirus PCR Not Detected (NotDetected); Influenza A PCR Not Detected (NotDetected); Influenza B PCR Not Detected (NotDetected); Mycoplasma pneumoniae PCR Not Detected (NotDetected); Parainfluenza Virus 1 PCR Not Detected (NotDetected); Parainfluenza Virus 2 PCR Not Detected (NotDetected); Parainfluenza Virus 3 PCR Not Detected (NotDetected); Parainfluenza Virus 4 PCR Not Detected (NotDetected); Respiratory Syncytial VirusPCR Not Detected (NotDetected); Rhinovirus/Enterovirus PCR Not Detected (NotDetected)
[2024-03-27] MEDS: ONDANSETRON INJ 2 MG/ML 2 ML VIAL ONE (18:46)
[2024-03-27] MEDS: MoRPHine SULFATE 4 MG/ML 1 ML CARP\\VIAL ONE (18:48)
[2024-03-27] MEDS: MoRPHine SULFATE 4 MG/ML 1 ML CARP\\VIAL IV STA (18:49)
[2024-03-27] MEDS: LORazepam 1 MG/1 ML SYR ED Inj Use IV STA (18:55)
--- NOTE | 2024-03-27 19:10 | History & Physical Report ---
Date of Service March 27, 2024 Assessment & Plan (1) Sepsis: (2) Altered mental status: Plan: 73-year-old male with history of hypertension on lisinopril, chronic kidney disease, presenting with fever and confusion which started yesterday. Sepsis secondary to possible meningitis Presents with Fever, confusion, neck rigidity on exam Discussed with ER physician Dr. Martinez, recommended lumbar tap He also discussed the case with on-call neurologist Dr. Rios, who recommended a lumbar tap Await lumbar tap results If suggestive of meningitis, will cover patient with vancomycin, ceftriaxone, ampicillin, Decadron, acyclovir-all renally dosed in light of acute renal failure Possible left otitis media versus mastoiditis Antibiotic per above Rule out left sided pneumonia CT chest pending Episodes of diarrhea Twice at home Stool PCR, C. difficile Lactic acid normal Blood cultures pending UA no signs of UTI CT abdomen pelvis: No other focus of infection indicated Acute renal failure, on CKD Likely prerenal secondary to poor oral intake and ATN from sepsis As per , the patient was told that he has some kidney disease in the past Creatinine currently 2.8 UA: Positive +[address] abdomen pelvis: Showing bilateral renal scarring IV NSS ordered Monitor closely Mild troponin elevation Likely secondary to YOSEPH Troponin 74, 92, third set pending No cardiac symptoms EKG no signs of acute ischemia or infarct Echocardiogram ordered History of hypertension Hold lisinopril in light of acute kidney injury and marginal blood pressure DVT prophylaxis SCDs for now in light of lumbar tap Full code Lives with family at home History of Present Illness Chief Complaint: Fever, confusion starting yesterday Primary Care Provider: NO PCP 73-year-old male with history of hypertension on lisinopril, chronic kidney disease, presenting with fever and confusion which started yesterday. History obtained from patient's and son at the bedside. At baseline patient is active, still works in a [employer]. He was doing fine until yesterday when upon waking up, he had an episode of vomiting and was noted to be weak. He also developed a fever, highest taken was 102 as per the . Through the day, the patient became a progressively weak and confused-not conversant, mostly staring as per family. He was also complaining of some left-sided ear pain. Patient also had 2 episodes of watery stools. Today, patient was still noted to be weak-cannot get up from bed, and confused. Patient brought to the ER via EMS. At the ER, blood pressure 147/80, heart rate 97, respiratory 22, 94% on room air, 37 C WBC 18,000 Creatinine 2.8 Chest x-ray: There is either a small medial left basilar infiltrate or small hiatal hernia. CT head: Chronic left mastoiditis CT abdomen pelvis:1. Very small amounts of nonspecific free fluid in the pelvis without abscess, inflammation or intestinal obstruction. 2. Trace bilateral pleural effusions and dependent atelectasis. 3. 3.4 cm distal abdominal aortic aneurysm without rupture. Recommend abdomen/pelvis CT or MR imaging follow-up in 3 years. Patient given IV fluids, IV ceftriaxone at the ER. As per patient's and son, patient's mental status seems to be improved although still not at baseline He is awake and alert, conversant but mostly slow to respond on my exam. He reports some mild left-sided headache, and neck pain when bending forward, as well as some left-sided ear discomfort. Denies photophobia. Denies cough, shortness of breath, abdominal pain He reports some urinary frequency over the past few months Allergies Allergy/AdvReac Type Severity Reaction Status Date / Time No Known Allergies Allergy Unverified 03/27/24 18:06 Home Medications Medication Instructions Recorded Confirmed Type lisinopril 20 mg tablet 20 mg PO HS 03/27/24 03/27/24 History Past Med/Surg History Problem List (Updated 03/27/24 @ 19:15 by Sean Orlando MD) Altered mental status Sepsis HTN (hypertension) Social History Smoking Status: Never smoker Review of Systems Review of Systems: all noted and negative except for above Physical Exam Physical Exam: General- oriented x 2-3, not in distress, speaks in sentences with no effort or accessory muscle use Head- atraumatic Eyes- PERRL, EOMI, anicteric ENT- oropharynx clear Positive scant yellow discharge on the left ear, with erythema in the ear canal Neck- (+)moderate rigidity, no JVD, no adenopathy, no thyromegaly; carotids +2/2, no bruits appreciated Lungs- clear to auscultation bilaterally, no rales/wheezes Heart- normal rate, regular rhythm; no murmur, no gallop, no rub appreciated Abdomen- normal bowel sounds, nondistended, soft, nontender, no masses or hepatosplenomegaly Extremities- no pretibial edema, no calf tenderness; peripheral pulses intact Neuro- alert, oriented x 2-3; CN 2-12 grossly intact; motor 5/5 bilaterally;sensation 100% on all extremities; no other gross focal neurologic deficits Skin- warm & dry Results & Data Results & Data Vital Signs (Past 12 Hours) Vital Signs Temp Pulse Pulse Resp BP BP Pulse Ox 03/27/24 18:45 88 18 154/78 H 96 03/27/24 18:23 86 16 153/93 H 95 03/27/24 17:12 82 17 03/27/24 17:00 84 18 154/84 H 94 03/27/24 16:45 84 18 156/90 H 96 03/27/24 16:23 03/27/24 16:15 37.0 C 86 20 135/82 95 03/27/24 16:04 100 H 03/27/24 15:30 37.0 C 97 H 22 147/80 H 94 O2 Del Method O2 Flow Rate 03/27/24 18:45 Nasal Cannula 2 03/27/24 18:23 Room Air 03/27/24 17:12 03/27/24 17:00 Room Air 03/27/24 16:45 03/27/24 16:23 Room Air 03/27/24 16:15 Room Air 03/27/24 16:04 03/27/24 15:30 Room Air all noted and reviewed including below Code Status & VTE Plan VTE Prophylaxis Plan VTE Prophylaxis will be ordered: Yes
[2024-03-27] MEDS ORDERED: AMPICILLIN SOD 1 GM VIAL IV STA (19:45)
[2024-03-27] MEDS ORDERED: VANCOMYCIN CONSULT ACTIVE PRN (19:45)
[2024-03-27] MEDS: SODIUM CHLORIDE 0.9% 1,000 ML IV SCH ×2 (19:45→21:44)
[2024-03-27] MEDS: LIDOCAINE 1% LOCAL 20 ML VIAL ONE (19:46)
[2024-03-27] MEDS ORDERED: DEXAMETHASONE SOD INJ 4 MG/ML VIAL IV STA (21:08)
[2024-03-27] MEDS ORDERED: DEXAMETHASONE SOD INJ 4 MG/ML VIAL IV SCH (21:15)
[2024-03-27] MEDS: DAPTOmycin 425 MG in SYRINGE 0 ML IV SCH (21:31)
[2024-03-27] MEDS: AMPICILLIN 2,000 MG in SODIUM CHLOR 0.9% MINI-B 100 ML IV STA (21:32)
[2024-03-27] MEDS: dexAMETHasone 10 MG in SYRINGE 0 ML IV STA (22:00)
[2024-03-27] MEDS: ACYCLOVIR SOD 750 MG in DEXTROSE 5% 250 ML IV ONE (22:04)
[2024-03-27] MEDS: VANCOMYCIN HCL 1,500 MG in SODIUM CHLORIDE 0.9% 500 ML IV ONE (22:34)
[2024-03-27] MEDS ORDERED: ATROPINE SULFATE 0.1 MG/ML 10ML SYR IV PRN (22:40)
--- NOTE | 2024-03-27 22:46 | Communication Note ---
Date of Service: March 27, 2024 Patient with 3.1-second sinus pause upon arrival at PCU As symptomatic as per RN
[2024-03-27] MEDS: PANTOprazole 40 MG/10 ML SYR IV ONE (22:49)
[2024-03-27 23:38] LABS: Troponin I High Sensitivity 103.9 pg/ml (0-20)
[2024-03-27 23:41] LABS: Thyroid Stimulating Hormone 0.78 uIu/ml (0.300-4.500)
--- NOTE | 2024-03-28 00:15 | CT Scan Report ---
Exam(s): CT CHEST Without Contrast EXAM: CT Chest Without Intravenous Contrast CLINICAL HISTORY: Reason for exam: sepsis, possible L sided pneumonia. TECHNIQUE: Axial computed tomography images of the chest without intravenous contrast. Automated exposure control was utilized for the study. A dose lowering technique was utilized adhering to the principles of ALARA. COMPARISON: No relevant prior studies available. FINDINGS: Lungs: Mild bibasilar dependent atelectasis. No mass. Pleural space: Unremarkable. No pneumothorax. No significant effusion. Heart: Unremarkable. No cardiomegaly. No significant pericardial effusion. No significant coronary artery calcifications. Bones/joints: Unremarkable. No acute fracture. No dislocation. Soft tissues: Unremarkable. Vasculature: Ectasia of the ascending thoracic aorta measuring 3.7 cm. No thoracic aortic aneurysm. Lymph nodes: Unremarkable. No enlarged lymph nodes. IMPRESSION: No acute findings in the chest. Electronically signed by: Jimmie Giles MD 03/28/24 00:14 AM
[2024-03-28] MEDS: AMPICILLIN 2,000 MG in SODIUM CHLORIDE 0.9% 50 ML IV SCH (03:36)
[2024-03-28] MEDS: dexAMETHasone 10 MG in SYRINGE 0 ML IV SCH (03:38)
[2024-03-28] MEDS ORDERED: DEXAMETHASONE SOD INJ 4 MG/ML VIAL IV SCH (04:00)
[2024-03-28] MEDS ORDERED: dexAMETHasone 4 MG in SYRINGE 0 ML IV SCH (04:00)
[2024-03-28] MEDS: cefTRIAXone SODIUM 2,000 MG/50 ML BAG IV SCH (04:34)
[2024-03-28 06:40] LABS: Hematocrit (blood only) 36.7 % (42.0-52.0); Hemoglobin 12.2 g/dl (14.0-18.0); Mean Corpuscular Hemoglobin 30.3 pg (25.0-34.0); Mean Corpuscular Hgb Conc 33.2 g/dL (32.0-36.0); Mean Corpuscular Volume 91.3 fL (80.0-100.0); Mean Platelet Volume 9.9 fL (9.4-12.4); Platelet Count 120 K/uL (130-400); RDW Coefficient of Variation 13.2 % (11.5-14.5); RDW Standard Deviation 44.4 fL (36.4-46.3); Red Blood Count 4.02 M/uL (4.70-6.10); White Blood Count 16.01 K/ul (4.8-10.8)
[2024-03-28 07:03] LABS: Basophils # (auto) 0.02 K/uL (0.00-0.20); Basophils % (auto) 0.1 %; Immature Granulocytes # (auto) 0.18 K/uL (0.01-0.20); Immature Granulocytes % (auto) 1.1 %; Lymphocytes # (auto) 0.46 K/uL (1.20-3.40); Lymphocytes % (auto) 2.9 %; Monocytes # (auto) 0.57 K/uL (0.11-0.59); Monocytes % (auto) 3.6 %; Neutrophils # (auto) 14.78 K/uL (1.40-6.50); Neutrophils % (auto) 92.3 %
[2024-03-28 07:06] LABS: Albumin Globulin Ratio 1.2 (0.9-2); BUN Creatinine Ratio 19.4 (10-20); Bilirubin,Total 0.4 mg/dl (0.2-1.0); Calcium 7.6 mg/dl (8.6-10.3); Creatinine Clr Calc Pharmacy 25.4 ml/min; Globulin 2.5 gm/dl (2.5-4.0); Total Protein 5.5 gm/dl (6.0-8.3)
[2024-03-28] MEDS: ACYCLOVIR SOD 750 MG in DEXTROSE 5% 250 ML IV SCH (08:49)
[2024-03-28] MEDS: PANTOprazole 40 MG/10 ML SYR IV SCH (08:49)
--- NOTE | 2024-03-28 10:31 | Hospitalist Progress Note ---
Date of Service March 28, 2024 Assessment & Plan (1) Sepsis: (2) Altered mental status: Plan: 73-year-old male with history of hypertension on lisinopril, chronic kidney disease, presenting with fever and confusion which started yesterday. Sepsis secondary to possible meningitis Presents with Fever, confusion, neck rigidity on exam Admitting provider discussed with ER physician Dr. Martinez, recommended lumbar tap He also discussed the case with on-call neurologist Dr. Rios, who recommended a lumbar tap Await lumbar tap results On daptomycin, ceftriaxone, ampicillin, Decadron, acyclovir-all renally dosed in light of acute renal failure CT head noting chronic otomastoiditis MRI brain pending Blood cx pending CSF cultures pending Neurology consulted, appreciate recs ID consulted, appreciate further recs Possible left otitis media versus mastoiditis Noted on head CT Antibiotics per above ID consult as above Rule out left sided pneumonia CT chest unremarkable Episodes of diarrhea Twice at home Stool PCR, C. difficile pending Acute renal failure, on CKD Likely prerenal secondary to poor oral intake and ATN from sepsis As per , the patient was told that he has some kidney disease in the past Creatinine currently 2.8 UA: Positive +[address] abdomen pelvis: Showing bilateral renal scarring IV NSS ordered Monitor closely Downtrending Consider Nephrology consult Mild troponin elevation Likely secondary to YOSEPH Troponin 74, 92, third set pending No cardiac symptoms EKG no signs of acute ischemia or infarct Echocardiogram ordered History of hypertension Hold lisinopril in light of acute kidney injury and marginal blood pressure DVT prophylaxis SCDs for now in light of lumbar tap Full code Dispo: PT/OT to be ordered once more medically stable Admission and Anticipated Discharge Date Admission Date: March 27, 2024 Subjective patient was seen in the a.m. was feeding him breakfast Alert and oriented x 3 with some difficulty Concerned about redness on the left side of his face Review of Systems Review of Systems: All systems reviewed & are unremarkable except as noted in Subjective Physical Exam Physical Exam: General: Alert, oriented. No acute distress Psych: Appropriate mood and affect Neuro: No gross deficits, alert and oriented HEENT: NC/AT CV: RRR Resp: Breath sounds clear bilaterally, no increased effort of breathing Abdomen: Soft, nontender Extremities: No edema in lower extremities bilaterally. Results & Data Results & Data Vital Signs (Past 12 Hours) Vital Signs Temp Pulse Resp BP Pulse Ox O2 Del Method 03/28/24 08:01 37.0 C 83 18 163/83 H 93 Room Air 03/28/24 03:11 37.4 C 79 18 132/80 94 Room Air 03/27/24 23:01 36.7 C 86 18 134/63 95 Room Air Diagnostic Findings Chest X-Ray 03/27/24 15:30 EXAM: Radiograph of the Chest 1 View INDICATION: Sepsis. TECHNIQUE: Frontal view of the chest. COMPARISON: No relevant prior studies available. FINDINGS: Lungs and pleural spaces: There is either a small medial left basilar infiltrate or small hiatal hernia. No pleural effusion or pneumothorax. Heart: Shape and configuration within normal limits allowing for technique. Mediastinum: See above. Bones/joints: Scoliotic spine without acute osseous abnormality. Soft tissues: No abnormality noted. No radiopaque foreign body noted. Upper abdomen: No abnormality noted. IMPRESSION: There is either a small medial left basilar infiltrate or small hiatal hernia. ACT 112: Negative or not required by law. Electronically signed by Jessica Brito 03-27-2024 3:[address] 03/27/24 15:30 EXAM: CT Head Without Intravenous Contrast INDICATION: Lethargy. Fever. TECHNIQUE: Axial computed tomography images of the head/brain without intravenous contrast. Sagittal and/or coronal reformats are provided. Sagittal and coronal reformatted images were created and reviewed. This CT exam was performed using one or more of the following dose reduction techniques: automated exposure control, adjustment of the mA and/or kV according to patient size, and/or use of iterative reconstruction technique. COMPARISON: No relevant prior studies available. FINDINGS: Limitations: None. Brain and extra-axial spaces: There is age appropriate cortical atrophy and chronic ischemic periventricular white matter hypodensity. No acute infarct, hemorrhage or mass noted. Bones/joints: No acute changes. Soft tissues: No significant abnormality noted. Vasculature: Atherosclerotic calcification in the vertebral and carotid arteries. Sinuses: No layering fluid in the visualized portions of the paranasal sinuses. Mastoid air cells: Chronic mucosal thickening left middle ear and mastoid air cells. Orbits: No significant abnormality noted. IMPRESSION: 1. Cerebral atrophy. No acute changes. 2. Chronic left otomastoiditis. ACT 112: Negative or not required by law. Electronically signed by Jessica Brito 03-27-2024 4:15 PM Abdomen/Pelvis CT 03/27/24 15:46 EXAM: CT Abdomen and Pelvis Without Intravenous Contrast INDICATION: Nausea and vomiting. Fever. TECHNIQUE: Axial computed tomography images of the abdomen and pelvis without intravenous contrast. Sagittal and coronal reformatted images were created and reviewed. This CT exam was performed using one or more of the following dose reduction techniques: automated exposure control, adjustment of the mA and/or kV according to patient size, and/or use of iterative reconstruction technique. COMPARISON: No relevant prior studies available. FINDINGS: Limitations: None. Lung bases: There is dependent atelectasis. Pleural space: Trace layering bilateral pleural effusions present. Heart: Mild cardiomegaly. No pericardial effusion. Mediastinum: No abnormality noted. ABDOMEN: Liver: Lack of intravenous contrast limits detection of some masses. No abnormality noted. Gallbladder and bile ducts: No calcified stones or surrounding fluid. Pancreas: No pancreatic mass, calcification, inflammation or ductal dilation noted. Spleen: No significant abnormality noted. Adrenals: No significant abnormality noted. Kidneys and ureters: Bilateral renal cortical and perinephric scarring noted. No urinary gas, hydronephrosis or perinephric fluid. Stomach and bowel: Scattered stool in the colon. No intestinal thickening, adjacent inflammation or obstruction. Suboptimally assessed collapsed stomach. PELVIS: Appendix: No findings to suggest acute appendicitis. Bladder: Appears normal for the degree of filling. No stones or inflammation. No large mass. Masses may not be detected in the absence of opacification. Reproductive: Cystic structure right scrotum could be a hydrocele or cyst. Appearance benign. ABDOMEN and PELVIS: Intraperitoneal space: Trace fluid in the pelvis. Bones/joints: Degenerative changes noted throughout the spine. No acute osseous abnormality seen. Diffuse spinal degenerative change. No acute osseous abnormality. There is L4-L5 spinal stenosis. No paraspinal soft tissue edema or fluid. Vasculature: The aorta is atherosclerotic. The distal aorta is aneurysmal to 3.4 cm. No hemorrhage or rupture. Lymph nodes: No pathologically enlarged lymph nodes. IMPRESSION: 1. Very small amounts of nonspecific free fluid in the pelvis without abscess, inflammation or intestinal obstruction. 2. Trace bilateral pleural effusions and dependent atelectasis. 3. 3.4 cm distal abdominal aortic aneurysm without rupture. Recommend abdomen/pelvis CT or MR imaging follow-up in 3 years. ACT 112: Negative or not required by law. Electronically signed by Jessica Brito 03-27-2024 4:[address] 03/27/24 19:05 Exam(s): CT CHEST Without Contrast EXAM: CT Chest Without Intravenous Contrast CLINICAL HISTORY: Reason for exam: sepsis, possible L sided pneumonia. TECHNIQUE: Axial computed tomography images of the chest without intravenous contrast. Automated exposure control was utilized for the study. A dose lowering technique was utilized adhering to the principles of ALARA. COMPARISON: No relevant prior studies available. FINDINGS: Lungs: Mild bibasilar dependent atelectasis. No mass. Pleural space: Unremarkable. No pneumothorax. No significant effusion. Heart: Unremarkable. No cardiomegaly. No significant pericardial effusion. No significant coronary artery calcifications. Bones/joints: Unremarkable. No acute fracture. No dislocation. Soft tissues: Unremarkable. Vasculature: Ectasia of the ascending thoracic aorta measuring 3.7 cm. No thoracic aortic aneurysm. Lymph nodes: Unremarkable. No enlarged lymph nodes. IMPRESSION: No acute findings in the chest. Electronically signed by: Jimmie Giles MD 03/28/24 00:14 AM Lumbar Puncture 03/28/24 19:54 LUMBAR PUNCTURE UNDER FLUOROSCOPY CLINICAL HISTORY: Meningitis PROCEDURE: Procedure and risks were explained. Informed consent was obtained over the phone. A final timeout was completed. The patient was placed prone on the fluoroscopic exam table. The lower lumbar region was prepped and draped in sterile fashion. 1% lidocaine was utilized for skin anesthesia. Utilizing fluoroscopic guidance, a 22-gauge Sprotte spinal needle was advanced into the intrathecal space at the L3-4 disc space level. Fluoroscopic spot images were obtained. Approximately 8 mL of cloudy CSF fluid was removed and sent to lab for analysis. The needle was removed and Band-Aid applied. The patient tolerated the procedure well. Vital signs will be monitored postprocedure. Fluoroscopy time 20 seconds. Study dosed 21.31 mGy. IMPRESSION: Lumbar puncture as above. Performed, dictated, and signed by Stalin De Jesus PA-C; to be co-signed by Dr. Raphael Raza. Electronically signed by: Raphael Raza M.D. 03/28/2024 3:50 PM
[2024-03-28 15:36] LABS: Total Protein CSF 150.7 mg/dl (15-45)
--- NOTE | 2024-03-28 15:38 | Fluoroscopy Report ---
LUMBAR PUNCTURE UNDER FLUOROSCOPY CLINICAL HISTORY: Meningitis PROCEDURE: Procedure and risks were explained. Informed consent was obtained over the phone. A final timeout was completed. The patient was placed prone on the fluoroscopic exam table. The lower lumbar region was prepped and draped in sterile fashion. 1% lidocaine was utilized for skin anesthesia. Utilizing fluoroscopic guidance, a 22-gauge Sprotte spinal needle was advanced into the intrathecal s pace at the L3-4 disc space level. Fluoroscopic spot images were obtained. Approximately 8 mL of clou dy CSF fluid was removed and sent to lab for analysis. The needle was removed and Band-Aid applied. T he patient tolerated the procedure well. Vital signs will be monitored postprocedure. Fluoroscopy time 20 seconds. Study dosed 21.31 mGy. IMPRESSION: Lumbar puncture as above. Performed, dictated, and signed by Stalin De Jesus PA-C; to be co-signed by Dr. Raphael Raza. Electronically signed by: Raphael Raza M.D. 03/28/2024 3:50 PM
[2024-03-28 16:37] LABS: Appearance CSF Hazy; CSF Count Tube # 3; CSF Xanthrochromic Xanthochromic; Color CSF Pale Yellow
[2024-03-28 16:38] LABS: Red Blood Cell CSF Manual 222 (0-)
[2024-03-28 17:03] LABS: Mononuclear WBC CSF Manual 8 %; Polynuclear WBC CSF Manual 92 %
[2024-03-28 17:04] LABS: White Blood Cell CSF Manual 2000 (0-5)
[2024-03-28 17:31] LABS: Cryptococcus neoformans/ga PCR Not Detected (NotDetected); Cytomegalovirus PCR Not Detected (NotDetected); Enterovirus PCR Not Detected (NotDetected); Escherichia coli K1 PCR Not Detected (NotDetected); Haemophilius influenzae PCR Not Detected (NotDetected); Herpes Simplex Virus 1 PCR Not Detected (NotDetected); Herpes Simplex Virus 2 PCR Not Detected (NotDetected); Human Herpes Virus 6 PCR Not Detected (NotDetected); Human Parechovirus PCR Not Detected (NotDetected); Listeria monocytogenes PCR Not Detected (NotDetected); Neisseria meningitidis PCR Not Detected (NotDetected); Streptococcus agalactiae PCR Not Detected (NotDetected); Varicella Zoster Virus PCR Not Detected (NotDetected)
[2024-03-28 17:52] LABS: Streptococcus pneumoniae PCR DETECTED (NotDetected)
--- NOTE | 2024-03-28 18:24 | Neurology Consultation ---
Date of Consultation March 28, 2024 Assessment & Plan (1) Meningitis: Pt is a 73 yo man w/ h/o HTN who presents for fevers, AMS, N/V, headache now with CSF consistent with infectious meningitis which would explain symptoms. Recommend ID consultation for further Antibiotic tapering. (2) Altered mental status: Plan -- Antibiotic coverage per ID -- MRI Brain w/wo contrast -- Delirium precautions -- Further recs pending MRI Telehealth Consultation Telehealth Information Telehealth Information: I performed this visit using a real-time telehealth connection between my location and the patients location ([facility]). After connecting through interactive tele-video, patient was identified by name and date of and/or wristband check.Patient (or authorized healthcare registered representative) was informed that this was a telemedicine visit and it was being conducted confidentially over secure lines. My office door was closed and no one else was present in the room with me.Patient (or authorized healthcare registered representative) provided consent to proceed with the visit, expressed an understanding of privacy and security of the telemedicine visit, and gave permission to have a hospital registered representative in the room in order to assist with the visit and to conduct portions of the visit, as needed. I informed the patient (or authorized healthcare registered representative) that I reviewed their record and presented the opportunity for them to ask any questions regarding the visit today. The patient agreed to participate. History of Present Illness Reason for Consultation: Fevers, AMS - Concern for Meningitis Attending Physician: Kiley Esparza MD History of Present Illness Pt is a 73 yo man w/ h/o HTN who presents today for two days of fevers, AMS, headache, N/V. States that Thursday night pt was restless. When he awoke the next morning he vomitted. He tried to work in the yard but did not feel well. Thursday morning he appeared listless and confused. Presented to hospital where intial work-up was remarkable for fevers, leukocytosis. CSF has now returned and is consistent with infection.Fortunately family reports that pt appears very improved today. He is on broad coverage for infectious meningtis. Allergies Allergy/AdvReac Type Severity Reaction Status Date / Time No Known Allergies Allergy Unverified 03/27/24 18:06 Home Medications Medication Instructions Recorded Confirmed Type lisinopril 20 mg tablet 20 mg PO HS 03/27/24 03/27/24 History Patient History Social History Smoking Status: Never smoker Hx Alcohol Use: No Hx Substance Use: No Preferred Language: [place] Communication Ability: Effective Neurology Director Required: No Beliefs That Will Affect Care: None Current Living Situation: Spouse Feels Safe at Home: Yes Safety Concerns: Feels Safe At This Time Assistive Devices: None Review of Systems Negative aside from HPI Physical Exam Pt seen awake in bed, His speech is fluent and he is able to state his name but has difficulty with stating his year. He is tangential and at times his responses to questions do not correlate to question but speech is overall intelligible. His face is symmetric, EOM intact. He is able to lift arms and legs against gravity without drift, FtN is intact. No sensory deficits to light touch. Results & Data Vital Signs (Past 12 Hours) Vital Signs Temp Pulse Resp BP Pulse Ox O2 Del Method 03/28/24 15:32 36.8 C 84 18 155/77 H 93 Room Air 03/28/24 11:23 36.9 C 82 18 160/79 H 94 Room Air 03/28/24 08:01 37.0 C 83 18 163/83 H 93 Room Air Laboratory Results CSF WBC 2000 Protein 150 Glucose 75 +Strep Pneumonia Diagnostic Findings CT Head 03/27/24: Unremarkable Medications Administered Per MAY
[2024-03-28] MEDS: AMPICILLIN 2,000 MG in SODIUM CHLOR 0.9% MINI-B 100 ML IV SCH (20:15)
[2024-03-28] MEDS: SODIUM CHLORIDE 0.9% 1,000 ML IV ONE (21:24)
--- NOTE | 2024-03-28 22:08 | Electrocardiogram Report ---
Test Reason : Blood Pressure : */* mmHG Vent. Rate : 91 BPM Atrial Rate : 91 BPM P-R Int : 158 ms QRS Dur : 118 ms QT Int : 362 ms P-R-T Axes : 51 18 -48 degrees QTcB Int : 445 ms Normal sinus rhythm Left ventricular hypertrophy with QRS widening and repolarization abnormality ( Sokolow-Fallon , Danial l product ) Possible ventricular pre-excitation Anteroseptal infarct , age undetermined Abnormal ECG No previous ECGs available Confirmed by Ry Zaidi ([id number]) on 03/28/2024 10:07:52 PM Referred By: REFERRED SELF Confirmed By: Ry Zaidi
[2024-03-28] MEDS: ACETAMINOPHEN 325 MG TAB PO PRN (23:10)
[2024-03-29 06:32] LABS: Hematocrit (blood only) 35.9 % (42.0-52.0); Hemoglobin 12.3 g/dl (14.0-18.0); Mean Corpuscular Hemoglobin 30.4 pg (25.0-34.0); Mean Corpuscular Hgb Conc 34.3 g/dL (32.0-36.0); Mean Corpuscular Volume 88.9 fL (80.0-100.0); Mean Platelet Volume 10.2 fL (9.4-12.4); Platelet Count 153 K/uL (130-400); RDW Coefficient of Variation 12.7 % (11.5-14.5); RDW Standard Deviation 41.7 fL (36.4-46.3); Red Blood Count 4.04 M/uL (4.70-6.10); White Blood Count 14.86 K/ul (4.8-10.8)
[2024-03-29 06:55] LABS: Basophils # (auto) 0.01 K/uL (0.00-0.20); Basophils % (auto) 0.1 %; Echinocytes 2+; Immature Granulocytes # (auto) 0.18 K/uL (0.01-0.20); Immature Granulocytes % (auto) 1.2 %; Lymphocytes # (auto) 0.59 K/uL (1.20-3.40); Monocytes # (auto) 0.53 K/uL (0.11-0.59); Monocytes % (auto) 3.6 %; Neutrophils # (auto) 13.55 K/uL (1.40-6.50); Neutrophils % (auto) 91.1 %
[2024-03-29 07:01] LABS: Albumin Globulin Ratio 1.1 (0.9-2); Albumin Level 3.1 gm/dl (3.4-5.0); BUN Creatinine Ratio 24.7 (10-20); Bilirubin,Total 0.3 mg/dl (0.2-1.0); Calcium 7.9 mg/dl (8.6-10.3); Creatinine Clr Calc Pharmacy 26.6 ml/min; Globulin 2.7 gm/dl (2.5-4.0); Phosphorus 2.4 mg/dl (2.5-4.9); Potassium 3.9 mmol/L (3.5-5.1); Total Protein 5.8 gm/dl (6.0-8.3)
[2024-03-29] MEDS: amLODIPine BESYLATE 5 MG TAB PO SCH ×2 (09:32→20:40)
[2024-03-29] MEDS: POT PHOSPHATE MONOBASIC W/ SOD TAB PO SCH (09:32)
[2024-03-29] MEDS: SODIUM CHLORIDE 0.9% 1,000 ML IV SCH (09:47)
--- NOTE | 2024-03-29 10:38 | Infectious Disease Consult ---
Date of Service March 29, 2024 Telehealth Information I performed this visit using a real-time telehealth connection between my location and the patients location ([facility]). After connecting through interactive tele-video, patient was identified by name and date of and/or wristband check.Patient (or authorized healthcare admitting representative) was informed that this was a telemedicine visit and it was being conducted confidentially over secure lines. My office door was closed and no one else was present in the room with me.Patient (or authorized healthcare admitting representative) provided consent to proceed with the visit, expressed an understanding of privacy and security of the telemedicine visit, and gave permission to have a hospital admitting representative in the room in order to assist with the visit and to conduct portions of the visit, as needed. I informed the patient (or authorized healthcare admitting representative) that I reviewed their record and presented the opportunity for them to ask any questions regarding the visit today. The patient agreed to participate. Assessment & Plan (1) Streptococcus pneumoniae meningitis: Plan: Recommend treating with ceftriaxone and vancomycin pending susceptibilities (2) YOSEPH (acute kidney injury): Plan: Consider a nephrology consult Plan Pending susceptibilities recommend discontinuing acyclovir and ampicillin and continuing ceftriaxone 2G IV q12 hrs and consider switching daptomycin to Vancomycin renally dosed as per pharmacy as vancomycin is a more appropriate choice as therapeutic concentrations in the CSF are not easily achieved . Recommend adjunctive dexamethazone and will continue to follow CSF studies .If the isolate is PCN susceptible can discontinue vancomycin and treat with ceftriaxone monotherapy for 14 days .Thank you for allowing us to participate in the care of this patient ID will continue to follow History of Present Illness History of Present Illness 73 y/o M PMHx of hypertension, chronic kidney disease, presented with fever and confusion which started the day prior to admission.A LP was done and Blood and CSF culture are so far NGTD but her strep pneumoniae PCR is positive and he is currently on ceftriaxone ,ampicillin ,acyclovir and daptomycin .Patient reports he has chronic ear infection and sinusitis Allergies Allergy/AdvReac Type Severity Reaction Status Date / Time No Known Allergies Allergy Unverified 03/27/24 18:06 Home Medications Medication Instructions Recorded Confirmed Type lisinopril 20 mg tablet 20 mg PO HS 03/27/24 03/27/24 History Patient History Social History Smoking Status: Never smoker Hx Alcohol Use: No Hx Substance Use: No Preferred Language: [place] Macedonian Communication Ability: Effective Police Justice Required: No Beliefs That Will Affect Care: None Current Living Situation: Spouse Feels Safe at Home: Yes Safety Concerns: Feels Safe At This Time Assistive Devices: None Review of Systems No respiratory distress Physical Exam Patient awake alert oriented Results & Data Vital Signs (Past 12 Hours) Vital Signs Temp Pulse Pulse Resp BP Pulse Ox O2 Del Method 03/29/24 07:50 38.5 C H 73 17 186/96 H 92 Room Air 03/29/24 07:18 68 03/29/24 03:35 36.5 C 71 16 167/85 H 94 Room Air 03/28/24 23:06 38 C H 84 16 167/81 H 93 Room Air 03/28/24 22:51 89 Laboratory Results WBC [id number] Diagnostic Findings Blood and CSF cultures NGTD but strep pneumoniae PCR is positive FINDINGS: Limitations: None. Brain and extra-axial spaces: There is age appropriate cortical atrophy and chronic ischemic periventricular white matter hypodensity. No acute infarct, hemorrhage or mass noted. Bones/joints: No acute changes. Soft tissues: No significant abnormality noted. Vasculature: Atherosclerotic calcification in the vertebral and carotid arteries. Sinuses: No layering fluid in the visualized portions of the paranasal sinuses. Mastoid air cells: Chronic mucosal thickening left middle ear and mastoid air cells. Orbits: No significant abnormality noted. IMPRESSION: 1. Cerebral atrophy. No acute changes. 2. Chronic left otomastoiditis.
--- NOTE | 2024-03-29 12:19 | Hospitalist Progress Note ---
Date of Service March 29, 2024 Assessment & Plan (1) Sepsis: (2) Altered mental status: Plan 73-year-old male with history of hypertension on lisinopril, chronic kidney disease, presenting with fever and confusion which started the day prior to admission. Currently being treated for acute bacterial meningitis with chronic otomastoiditis, YOSEPH and Elevated troponin levels. Sepsis Acute bacterial meningitis Chronic Otomastoiditis Presents with Fever, confusion, neck rigidity on exam LP noting strep pneumoniae meningitis CT head noting chronic otomastoiditis MRI brain pending CT temporal bones pending per the request of ENT as soon as possible Blood cx NGTD CSF cultures pending Neurology consulted, appreciate recs ID consulted, appreciate further recs ENT consulted appreciate recs Originally on daptomycin, ceftriaxone, ampicillin, Decadron, acyclovir-all renally dosed in light of acute renal failure Currently on IV Rocephin and Vancomycin (being renally dosed) with Decadron per ID recs ENT requesting CT temporal bone, NPO after midnight for placement of an ear tube in the OR on 03/30/24 Pt with noted improvement currently Possible left otitis media versus mastoiditis Noted on head CT Antibiotics per above ID consult as above ENT consult as above -requesting CT temporal bone, NPO after midnight for placement of an ear tube in the OR on 03/30/24 Acute renal failure, on CKD Likely prerenal secondary to poor oral intake and ATN from sepsis As per , the patient was told that he has some kidney disease in the past Creatinine currently 2.8 UA: Positive +[address] abdomen pelvis: Showing bilateral renal scarring IV NSS ordered Monitor closely Downtrending Nephrology consulted, appreciate recs Troponin elevation Demand Ischemia Likely secondary to YOSEPH Troponin 74.9, 92.1, 103.9 to 78.2 No cardiac symptoms EKG no signs of acute ischemia or infarct but abnormal Echocardiogram noting EF of 60 to 65%, no regional wall motion abnormalities, Grade 1 diastolic dysfunction, moderate aortic regurgitation, mild MR hypertension Hold lisinopril in light of acute kidney injury and marginal blood pressure blood pressure has improved significantly with systolic sometimes greater than 180 Started on amlodipine 2.5 mg twice daily, as needed hydralazine 5 mg for SBP greater than 180 Continue to monitor Hypophosphatemia replete as needed DVT prophylaxis: SCDs for now in light of lumbar tap Full code Dispo: PT/OT to be ordered once more medically stable Admission and Anticipated Discharge Date Admission Date: March 27, 2024 Subjective patient was seen with his son and at bedside Extensive discussion of results and diagnosis of meningitis Agreeable to cardiology, ENT and nephrology consults in addition to already scheduled infectious disease and Neurology follow-up Patient notes that he has never had vaccinations Notes a chronic history of the ear infections but acutely changing over the past weekend No prior cardiac history, denying any chest pain, shortness of breath or palpitations Review of Systems Review of Systems: All systems reviewed & are unremarkable except as noted in Subjective Physical Exam Physical Exam: General: Alert, oriented. No acute distress Psych: Appropriate mood and affect Neuro: No gross deficits, alert and oriented, CN II through XII grossly intact, strength 5/5 bilaterally HEENT: NC/AT CV: RRR Resp: Breath sounds clear bilaterally, no increased effort of breathing Abdomen: Soft, nontender Extremities: No edema in lower extremities bilaterally. Results & Data Results & Data Vital Signs (Past 12 Hours) Vital Signs Temp Pulse Pulse Resp BP Pulse Ox O2 Del Method 03/29/24 11:57 37.4 C 77 26 H 195/88 H 94 Room Air 03/29/24 07:50 38.5 C H 73 17 186/96 H 92 Room Air 03/29/24 07:18 68 03/29/24 03:35 36.5 C 71 16 167/85 H 94 Room Air Diagnostic Findings Chest X-Ray 03/27/24 15:30 EXAM: Radiograph of the Chest 1 View INDICATION: Sepsis. TECHNIQUE: Frontal view of the chest. COMPARISON: No relevant prior studies available. FINDINGS: Lungs and pleural spaces: There is either a small medial left basilar infiltrate or small hiatal hernia. No pleural effusion or pneumothorax. Heart: Shape and configuration within normal limits allowing for technique. Mediastinum: See above. Bones/joints: Scoliotic spine without acute osseous abnormality. Soft tissues: No abnormality noted. No radiopaque foreign body noted. Upper abdomen: No abnormality noted. IMPRESSION: There is either a small medial left basilar infiltrate or small hiatal hernia. ACT 112: Negative or not required by law. Electronically signed by Jessica Brito 03-27-2024 3:[address] 03/27/24 15:30 EXAM: CT Head Without Intravenous Contrast INDICATION: Lethargy. Fever. TECHNIQUE: Axial computed tomography images of the head/brain without intravenous contrast. Sagittal and/or coronal reformats are provided. Sagittal and coronal reformatted images were created and reviewed. This CT exam was performed using one or more of the following dose reduction techniques: automated exposure control, adjustment of the mA and/or kV according to patient size, and/or use of iterative reconstruction technique. COMPARISON: No relevant prior studies available. FINDINGS: Limitations: None. Brain and extra-axial spaces: There is age appropriate cortical atrophy and chronic ischemic periventricular white matter hypodensity. No acute infarct, hemorrhage or mass noted. Bones/joints: No acute changes. Soft tissues: No significant abnormality noted. Vasculature: Atherosclerotic calcification in the vertebral and carotid arteries. Sinuses: No layering fluid in the visualized portions of the paranasal sinuses. Mastoid air cells: Chronic mucosal thickening left middle ear and mastoid air cells. Orbits: No significant abnormality noted. IMPRESSION: 1. Cerebral atrophy. No acute changes. 2. Chronic left otomastoiditis. ACT 112: Negative or not required by law. Electronically signed by Jessica Brito 03-27-2024 4:15 PM Abdomen/Pelvis CT 03/27/24 15:46 EXAM: CT Abdomen and Pelvis Without Intravenous Contrast INDICATION: Nausea and vomiting. Fever. TECHNIQUE: Axial computed tomography images of the abdomen and pelvis without intravenous contrast. Sagittal and coronal reformatted images were created and reviewed. This CT exam was performed using one or more of the following dose reduction techniques: automated exposure control, adjustment of the mA and/or kV according to patient size, and/or use of iterative reconstruction technique. COMPARISON: No relevant prior studies available. FINDINGS: Limitations: None. Lung bases: There is dependent atelectasis. Pleural space: Trace layering bilateral pleural effusions present. Heart: Mild cardiomegaly. No pericardial effusion. Mediastinum: No abnormality noted. ABDOMEN: Liver: Lack of intravenous contrast limits detection of some masses. No abnormality noted. Gallbladder and bile ducts: No calcified stones or surrounding fluid. Pancreas: No pancreatic mass, calcification, inflammation or ductal dilation noted. Spleen: No significant abnormality noted. Adrenals: No significant abnormality noted. Kidneys and ureters: Bilateral renal cortical and perinephric scarring noted. No urinary gas, hydronephrosis or perinephric fluid. Stomach and bowel: Scattered stool in the colon. No intestinal thickening, adjacent inflammation or obstruction. Suboptimally assessed collapsed stomach. PELVIS: Appendix: No findings to suggest acute appendicitis. Bladder: Appears normal for the degree of filling. No stones or inflammation. No large mass. Masses may not be detected in the absence of opacification. Reproductive: Cystic structure right scrotum could be a hydrocele or cyst. Appearance benign. ABDOMEN and PELVIS: Intraperitoneal space: Trace fluid in the pelvis. Bones/joints: Degenerative changes noted throughout the spine. No acute osseous abnormality seen. Diffuse spinal degenerative change. No acute osseous abnormality. There is L4-L5 spinal stenosis. No paraspinal soft tissue edema or fluid. Vasculature: The aorta is atherosclerotic. The distal aorta is aneurysmal to 3.4 cm. No hemorrhage or rupture. Lymph nodes: No pathologically enlarged lymph nodes. IMPRESSION: 1. Very small amounts of nonspecific free fluid in the pelvis without abscess, inflammation or intestinal obstruction. 2. Trace bilateral pleural effusions and dependent atelectasis. 3. 3.4 cm distal abdominal aortic aneurysm without rupture. Recommend abdomen/pelvis CT or MR imaging follow-up in 3 years. ACT 112: Negative or not required by law. Electronically signed by Jessica Brito 03-27-2024 4:[address] 03/27/24 19:05 Exam(s): CT CHEST Without Contrast EXAM: CT Chest Without Intravenous Contrast CLINICAL HISTORY: Reason for exam: sepsis, possible L sided pneumonia. TECHNIQUE: Axial computed tomography images of the chest without intravenous contrast. Automated exposure control was utilized for the study. A dose lowering technique was utilized adhering to the principles of ALARA. COMPARISON: No relevant prior studies available. FINDINGS: Lungs: Mild bibasilar dependent atelectasis. No mass. Pleural space: Unremarkable. No pneumothorax. No significant effusion. Heart: Unremarkable. No cardiomegaly. No significant pericardial effusion. No significant coronary artery calcifications. Bones/joints: Unremarkable. No acute fracture. No dislocation. Soft tissues: Unremarkable. Vasculature: Ectasia of the ascending thoracic aorta measuring 3.7 cm. No thoracic aortic aneurysm. Lymph nodes: Unremarkable. No enlarged lymph nodes. IMPRESSION: No acute findings in the chest. Electronically signed by: Jimmie Giles MD 03/28/24 00:14 AM Lumbar Puncture 03/28/24 19:54 LUMBAR PUNCTURE UNDER FLUOROSCOPY CLINICAL HISTORY: Meningitis PROCEDURE: Procedure and risks were explained. Informed consent was obtained over the phone. A final timeout was completed. The patient was placed prone on the fluoroscopic exam table. The lower lumbar region was prepped and draped in sterile fashion. 1% lidocaine was utilized for skin anesthesia. Utilizing fluoroscopic guidance, a 22-gauge Sprotte spinal needle was advanced into the intrathecal space at the L3-4 disc space level. Fluoroscopic spot jennifer ges were obtained. Approximately 8 mL of cloudy CSF fluid was removed and sent to lab for analysis. The needle was removed and Band-Aid applied. The patient tolerated the procedure well. Vital signs will be monitored postprocedure. Fluoroscopy time 20 seconds. Study dosed 21.31 mGy. IMPRESSION: Lumbar puncture as above. Performed, dictated, and signed by Stalin De Jesus PA-C; to be co-signed by Dr. Raphael Raza. Electronically signed by: Raphael Raza M.D. 03/28/2024 3:50 PM
[2024-03-29] MEDS ORDERED: VANCOMYCIN CONSULT ACTIVE PRN ×2 (12:25→12:26)
--- NOTE | 2024-03-29 13:31 | Nephrology Consultation ---
Date of Consultation March 29, 2024 Assessment & Plan (1) YOSEPH (acute kidney injury): improving nonoliguric Stage 1 YOSEPH on CKD 3B, unknown proteinuria status, baseline creatinine 2.1 as far as we know. presented w/ creatinine 2.8; down to 2.3 today. on vancomycin and ceftraixone -daily bmp -continue avoidance of nsaids, nephrotoxins unless life/limb saving -suggest dose vancomycin by level >> did d/w pharmacy -no need for urgent dialysis -cont strict I/o Care coordinated w/ Dr Esparza regarding IVF rate and BP med changes, need for ongoing labs, I/O >> we are in agreement. (2) CKD (chronic kidney disease) stage 3, GFR 30-59 ml/min: CKD 3B w/ presumptove baseline 2.1, eGFR 33 >spot prot/creat as OP or here if HTN persists w/o cause -BP control will be crucial as OP; did explain this (3) Streptococcus pneumoniae meningitis: on vanco and ceftriaxone; hopefully can stop vanco soon pending sensitivities (4) HTN (hypertension): HTN in setting of NS resuscitation and obligate dexamethasone. sbp 160-170s since admission -would not eval for nephrotic syndrome yet as we have good reasons above for HTN; do note though while not nephrotic on exam, serum albumin 3.0, though he presents in setting of illness -lowered NS dose to 50 mL hourly -increased amlodipine to 2.5 mg bid -monitor BP; cont to hold ACEI History of Present Illness Reason for Consultation: persistent YOSEPH Requesting Physician: Dr Esparza Attending Physician: Kiley Esparza MD History of Present Illness 73 y/o M whom I'm asked to see for persistent YOSEPH was admitted 03/27 with Strep pniae meningitis after presenting with fevers and confusion. PMH includes HTN, chronic kidney disease, chronic sinusitis. he does not routinely get care in [facility] or [facility] system > only prior creatinine is from Mar 2023 at 2.1, eGFR 33. Cxs of CSF are NGTD but PCR + > plan is to narrow to vanco and ceftriaxone for now pending sensitivities. Presenting creatinine 2.8; creatinine 2.3 today. 2+ protein dipstick on admission UA else bland. presented w/ generalized weakness, emesis x 1 episode day prior to admission, F to 102 at home w/ progressive confusion, even aphasia prior to admission, L ear pain, and 2 watery BM. No photophobia; no further V or N; no abd pain sob or cough. denies sob or palpitations currently. some lightheadedness w/ standing/ambulation; no new/worrisome voiding sx. 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 primary care in [place]; lives in [place]. Allergies Allergy/AdvReac Type Severity Reaction Status Date / Time No Known Allergies Allergy Unverified 03/27/24 18:06 Home Medications Medication Instructions Recorded Confirmed Type lisinopril 20 mg tablet 20 mg PO HS 03/27/24 03/27/24 History Patient History Medical History CKD (chronic kidney disease) stage 3, GFR 30-59 ml/min HTN (hypertension) Family History (Updated 03/29/24 @ 14:11 by Stacey Stephen MD, PhD) Other COPD (chronic obstructive pulmonary disease) Denies family history of Kidney disease Social History Smoking Status: Never smoker Hx Alcohol Use: No Hx Substance Use: No Preferred Language: [place] Sierra Leonean Communication Ability: Effective Personnel Research Scientist Required: No Beliefs That Will Affect Care: None Current Living Situation: Spouse Feels Safe at Home: Yes Safety Concerns: Feels Safe At This Time Assistive Devices: None Review of Systems 2 Review of Systems: All systems reviewed & are unremarkable except as noted in HPI & below Physical Exam 2 Constitutional: well developed, well nourished, average body habitus, + altered mental status (? slight confusion) and cooperative; no acute distress Eyes: EOM intact bilaterally ENMT: Mouth: + dry oral mucous membranes Respiratory: normal respiratory effort and + tachypneic (slight); no respiratory distress and no cough Auscultation: + diminished lung sounds Cardiovascular: Extremities: + abnormal capillary refill (slightly cooler extremities even dependent) Gastrointestinal (Abdomen): Inspection/Auscultation: normal bowel sounds P ercussion/Palpation: abdomen soft; abdomen nontender Musculoskeletal: Extremities: strength 5/5 throughout Skin: no rashes, warm and dry (mildly plethoric ) Neurologic: alegria, fluent speech, a little jerky BLE at times but also tells me he needs to void Psychiatric: Orientation: alert and oriented x 3 Results & Data Vital Signs (Past 12 Hours) Vital Signs Temp Pulse Pulse Resp BP Pulse Ox O2 Del Method 03/29/24 12:46 177/93 H 03/29/24 11:57 37.4 C 77 26 H 195/88 H 94 Room Air 03/29/24 07:50 38.5 C H 73 17 186/96 H 92 Room Air 03/29/24 07:18 68 03/29/24 03:35 36.5 C 71 16 167/85 H 94 Room Air Laboratory Results 03/29/24 06:04 03/29/24 06:04 Diagnostic Findings Chest x-ray: There is either a small medial left basilar infiltrate or small hiatal hernia. CT head: Chronic left mastoiditis CT abdomen pelvis (images personally reviewed/ agree w/ report): 1. Very small amounts of nonspecific free fluid in the pelvis without abscess, inflammation or intestinal obstruction. 2. Trace bilateral pleural effusions and dependent atelectasis. 3. 3.4 cm distal abdominal aortic aneurysm without rupture. Recommend abdomen/pelvis CT or MR imaging follow-up in 3 years. TTE EF 65%, moderate CLVH mod MRgg; grade 1 diastolic dysfunction
[2024-03-29] MEDS: VANCOMYCIN HCL 1,500 MG in SODIUM CHLORIDE 0.9% 500 ML IV ONE (13:34)
--- NOTE | 2024-03-29 13:35 | Pharmacy Report ---
Pharmacy PK ABX Note - Date of Service March 29, 2024 - Assessment and Plan Assessment 73 year old M receiving Vancomycin and Ceftriaxone for treatment of meningitis. * Day #3 of ceftriaxone and Day #1 of Vancomycin. Patient previously on Daptomycin, Ampicillin, and Acyclovir from 03/27-03/29 as well. * CSF PCR is positive for Streptococcus pneumoniae. ID consulted and recommends Vanc + Ceftriaxone until sensitivities return. * 24-hr Tmax of 38.5oC. Leukocytosis improving, 15k today. SCr slightly improved to 2.31 mg/dL this AM (CrCl 27 mL/min). Plan Vancomycin * Loading dose: 1500 mg IV x 1 * Dose per levels for now given degree of renal dysfunction * Regimen is predicted to achieve target AUC/VERONIQUE of 400-600 mg/L.hr * Random level ordered for: 03/30/24 Ceftriaxone * 2000 mg IV every 12 hours Pharmacy will continue to follow and will adjust dose/frequency as necessary. Thank you. Pharmacy has transitioned to AUC monitoring for vancomycin. AUC/VERONIQUE is the preferred PK/PD target and is associated with decreased risk of nephrotoxicity compared to traditional trough targets.
--- NOTE | 2024-03-29 13:54 | ENT Consultation ---
Date of Consultation March 29, 2024 Assessment & Plan (1) Acute otitis media: Patient does not have acute coalescent mastoiditis on exam. He does have a left acute otitis media. Recommend a CT scan of the temporal bone for better evaluation of the left mastoid and middle ear. Recommend a myringotomy with culture and beta 2 transferrin testing. continue IV antibiotics per primary team History of Present Illness Reason for Consultation: Meningitis. Attending Physician: Kiley Esparza MD History of Present Illness 73 yo Sikh male who was admitted for bacterial meningitis. Ct head revealed chronic mastoid changes as well as middle ear and mastoid effusion. No CT temporal bone obtained. There has been to otorrhea. Patient states he has had left ear issues his whole life. No history of prior otologic surgery. CSF culture pending. Patient states his ear is feeling better after being on IV abx for 3 days. States he did have some left ear pain which has since improved. Allergies Allergy/AdvReac Type Severity Reaction Status Date / Time No Known Allergies Allergy Unverified 03/27/24 18:06 Home Medications Medication Instructions Recorded Confirmed Type lisinopril 20 mg tablet 20 mg PO HS 03/27/24 03/27/24 History Patient History Medical History CKD (chronic kidney disease) stage 3, GFR 30-59 ml/min HTN (hypertension) Family History (Updated 03/29/24 @ 14:11 by Stacey Stephen MD, PhD) Other COPD (chronic obstructive pulmonary disease) Denies family history of Kidney disease Social History Smoking Status: Never smoker Hx Alcohol Use: No Hx Substance Use: No Preferred Language: [place] Somali Communication Ability: Effective Audit Specialist Required: No Beliefs That Will Affect Care: None Current Living Situation: Spouse Feels Safe at Home: Yes Safety Concerns: Feels Safe At This Time Assistive Devices: None Review of Systems Review of Systems: negative other than in HPI Physical Exam Physical Exam: Cranial nerve exam: Bilateral cranial nerve 7 intact and symmetric. Constitutional: AAOx3. NAD Eyes: EOMI ENMT: Nose: no external nose abnormality Mouth: + dental caries; no lip abnormality, no oropharynx abnormality, no tongue abnormality, no salivary duct abnormality and no trismus Throat: uvula midline; no posterior oropharynx abnormality and no tonsil abnormality Ears: Right ear with TM intact and middle ear is healthy. Left EAC occluded with cerumen. This was removed with alligator forceps. There is a purulent mi ddle ear effusion. Left mastoid is non tender and without edema. Lymphatic: no cervical adenopathy Results & Data Vital Signs (Past 12 Hours) Vital Signs Temp Pulse Pulse Resp BP Pulse Ox O2 Del Method 03/29/24 12:46 177/93 H 03/29/24 11:57 37.4 C 77 26 H 195/88 H 94 Room Air 03/29/24 07:50 38.5 C H 73 17 186/96 H 92 Room Air 03/29/24 07:18 68 03/29/24 03:35 36.5 C 71 16 167/85 H 94 Room Air (1) Acute otitis media Laterality: left Otitis media type: suppurative Recurrence: not specified as recurrent Spontaneous tympanic membrane rupture: without spontaneous rupture Qualified Code(s): H66.002 - Acute suppurative otitis media without spontaneous rupture of ear drum, left ear
--- NOTE | 2024-03-29 14:02 | Cardiology Consultation ---
Date of Consultation March 29, 2024 Assessment & Plan (1) Streptococcus pneumoniae meningitis: (2) YOSEPH (acute kidney injury): (3) HTN, goal below 130/80: (4) Dyslipidemia, goal LDL below 70: (5) Coronary atherosclerosis: (6) Ascending aorta dilatation: Plan Streptococcus pneumonia meningitis. As per Hospitalist and the multiple specialists consulted in this regard. Elevated high-sensitivity troponin I (74.9 -> 92.1 -> 103.9 > 78.2 pg/mL). Abnormal EKG. Patient asymptomatic. Echo with preserved LV function, without regional wall motion abnormalities. Coronary atherosclerosis noted on imaging this admission. Suspect demand ischemia, non-AL cause, secondary to critical illness (meningitis, chronic kidney disease). Recommend addition of aspirin 81 mg/day. Recommend addition of moderate intensity statin therapy with atorvastatin discussed. Recommend conservative medical management. Consider further evaluation as an outpatient if/when symptomatic. Abnormal EKG. See above. Also with possible ventricular preexcitation, Srdst-Wvbnwfvnw-Oixny pattern. No tachyarrhythmias observed; two pauses noted early on admission on telemetry. Patient asymptomatic. Repeat EKG. Recommend observation for now. Maintain telemetry. Consider outpatient ambulatory EKG as well as Electrophysiology consultation Hypertension. Patient with longstanding history of hypertension, currently off lisinopril due to acute on chronic renal dysfunction. Add nitrates and hyd ralazine. Aortic insufficiency. Recommend surveillance monitoring. Outpatient stress echocardiography may be helpful in this regard as well, once over acute issues and once blood pressure is appropriately controlled. Ascending aortic ectasia. Recommend surveillance monitoring. Supervising Physician Co-Signing Physician Notes Attending attestation: Case reviewed with the advanced practitioner. I have personally performed a history and physical examination on the patient. I have reviewed the advanced practitioner's documentation on the date of service referenced in note, and I agree with, and take responsibility for the plan of care. Add hydralazine 10 mg PO TID to Amlodipine 2.5 mg twice daily. Hydralazine ch osen as patient appears prior to fluid retention given acute renal insufficiency. Beta-erica may be avoided due to asymptomatic pauses noted earlier this hospital stay. Gal Dickerson, History of Present Illness Reason for Consultation: "demand ischemia, CHF on echo- no prior dx, med opt" Requesting Physician: Dr. Kiley Esparza MD Attending Physician: Dr. Kiley Esparza MD History of Present Illness Yogi Alvares is a very pleasant 73-year-old who was in his usual state of health until Thursday night when he began to feel unwell - headache, altered mental status, fevers, chills, nausea, vomiting, decreased appetite. Patient ultimately presented to the [facility] ER on Thursday, March 27, 2024 where workup revealed findings consistent with Streptococcus pneumonia meningitis. Cardiology consultation requested March 29, 2024 secondary to "demand ischemia, CHF on echo- no prior dx, med opt" Patient denies prior cardiac history. Notes taking lisinopril 20 mg/day for hypertension. He notes mild chronic peripheral edema on questioning. Family members present at bedside note patient does experience windedness when pushing the mower. No chest pain or discomfort. No palpitations. No syncope. No orthopnea or PND. Imaging this admission with a chronic left otomastoiditis, small hiatal hernia, 3.4 cm distal abdominal aortic aneurysm, 3.7 cm ectatic ascending thoracic aorta atherosclerotic calcifications in vertebral, carotids, coronaries, and thoracic/abdominal aorta Past Medical and Surgical History Hypertension Chronic kidney disease Chronic sinusitis, chronic ear infection Family History: Positive for CAD in mother, father, multiple siblings Social History: Never smoker. No smokeless tobacco. No alcohol. No illegal drug use. Romario. Preferred language: [place] Islander. Lives in [place]. 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 Allergies Allergy/AdvReac Type Severity Reaction Status Date / Time No Known Allergies Allergy Unverified 03/27/24 18:06 Home Medications Medication Instructions Recorded Confirmed Type lisinopril 20 mg tablet 20 mg PO HS 03/27/24 03/27/24 History Patient History Medical History CKD (chronic kidney disease) stage 3, GFR 30-59 ml/min HTN (hypertension) Family History (Updated 03/29/24 @ 14:11 by Stacey Stephen MD, PhD) Other COPD (chronic obstructive pulmonary disease) Denies family history of Kidney disease Social History Smoking Status: Never smoker Hx Alcohol Use: No Hx Substance Use: No Preferred Language: [place] Islander Communication Ability: Effective Entry Writer Required: No Beliefs That Will Affect Care: None Current Living Situation: Spouse Feels Safe at Home: Yes Safety Concerns: Feels Safe At This Time Assistive Devices: None Review of Systems Review of Systems: Complete Review of Systems is as stated above, negative, or noncontributory Physical Exam Physical Exam: Examined in a chair, family at bedside. General: Alert to person and place. No acute distress. Pleasant. Comfortable. Cooperative. HENT: Normocephalic. Atraumatic. Eyes: PER. Conjunctiva pink, sclera clear. Neck: No carotid bruits. No JVD. Heart: RRR, 70 bpm. Grade I-II/ systolic murmur. No diastolic murmur appreciated. No rub. Lungs: Diminished. Clear to auscultation. No wheeze. Abdomen: +BS. Soft. Nontender. No masses or organomegaly. Extremities: Minimal pretibial edema. No cyanosis Limited neurological examination is without focal deficits. Pulses: Posterior tibial=2/4. Results & Data Vital Signs (Past 12 Hours) Vital Signs Temp Pulse Pulse Resp BP Pulse Ox O2 Del Method 03/29/24 12:46 177/93 H 03/29/24 11:57 37.4 C 77 26 H 195/88 H 94 Room Air 03/29/24 07:50 38.5 C H 73 17 186/96 H 92 Room Air 03/29/24 07:18 68 03/29/24 03:35 36.5 C 71 16 167/85 H 94 Room Air Laboratory Results Cardiac Enzymes 03/28/24 03/29/24 Range/Units 17:18 06:04 AST 16 (13-39) U/L Troponin I High Sens 78.2 H* D (0-20) pg/ml CBC 03/29/24 Range/Units 06:04 WBC 14.86 H (4.8-10.8) K/ul RBC 4.04 L (4.70-6.10) M/uL Hgb 12.3 L (14.0-18.0) g/dl Hct 35.9 L (42.0-52.0) % Plt Count 153 (130-400) K/uL Neut # (Auto) 13.55 H (1.40-6.50) K/uL Lymph # (Auto) 0.59 L (1.20-3.40) K/uL [place] # (Auto) 0.53 (0.11-0.59) K/uL Eos # (Auto) 0.00 (0.00-0.50) K/uL Baso # (Auto) 0.01 (0.00-0.20) K/uL Comprehensive Metabolic Panel 03/29/24 Range/Units 06:04 Sodium 138 (136-145) mmol/L Potassium 3.9 (3.5-5.1) mmol/L Chloride 109 H (98-107) mmol/L Carbon Dioxide 20 L (21-32) mmol/L BUN 57 H (6-23) mg/dl Creatinine 2.31 H (0.6-1.4) mg/dl Glucose 159 H (70-99(Fasting)) mg/dl Calcium 7.9 L (8.6-10.3) mg/dl AST 16 (13-39) U/L ALT 21 (7-52) U/L Alkaline Phosphatase 54 (34-104) U/L Total Protein 5.8 L (6.0-8.3) gm/dl Albumin 3.1 L (3.4-5.0) gm/dl Intake and Output 03/28/24 03/29/24 03/29/24 22:59 06:59 14:59 Intake Total 1615 / 3973 550 / 3973 1745 / 1745 Output Total 700 / 700 Balance 1615 / 3273 -150 / 3273 1745 / 1745 Intake: IV 1415 / 2888 150 / 2888 1265 / 1265 Acyclovir Sod 750 mg In 265 / 530 265 / 265 Dextrose 5% 250 ml @ 250 mls/hr IV Q12H DONNA Rx#:[id number] Ampicillin 2,000 mg In Sodium 100 / 200 100 / 200 Chlor 0.9% Mini-B 100 ml @ 200 mls/hr IV Q8H DONNA Rx#:[id number] Sodium Chloride 0.9% 1,000 ml @ 1000 / 2000 1000 / 1000 100 mls/hr IV .Q10H ONE Rx#: [id number] [id number] SODIUM 2,000 mg In 50 / 100 50 / 100 50 ml @ 100 mls/hr IV Q12H DONNA Rx#:[id number] Oral 200 / 1085 400 / 1085 480 / 480 Output: Urine 700 / 700 Other: # Unmeasured Voids 1 1 Weight 74.4 kg Weight Measurement Method Built in [facility] Diagnostic Findings EKG on presentation revealed sinus rhythm at 91 bpm. Possible ventricular preexcitation noted along with left ventricular hypertrophy Continuous panel monitor notable for a 3.1-second pause on March 27, 2024 at 22:27 and a 2.6-second pause on March 27, 2024 at 22:28. Thereafter, patient has been maintaining sinus rhythm with heart rates predominantly in the 60s to 80s. March 28, 2024 Resting Echocardiography ([facility], Dr. Dickerson): Mild concentric LVH. No regional wall motion abnormalities. Normal LV systolic function. EF 6 0 to 65%. Normal RV size and function. Mild aortic valve sclerosis without significant aortic valve stenosis. Moderate aortic regurgitation. Aortic stenosis is absent. Mild mitral regurgitation. Grade 1 diastolic dysfunction.
--- NOTE | 2024-03-29 17:43 | Magnetic Resonance Report ---
Clinical History: Confusion Technique: Multiple T1 and T2-weighted magnetic resonance images were obtained of the brain without gadolinium contrast Findings: There is no sign of acute infarction with normal-appearing diffusion weighted images. There is cerebral atrophy, within expected limits for the patient's age. There are focal and confluent areas of increased T2 signal intensity within the periventricular white matter of the cerebral hemispheres bilaterally. This is most likely due to chronic small vessel ischemic disease. 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 There is no intracranial hemorrhage or other fluid collection. No midline shift or other form of herniation is seen. There is no hydrocephalus. Normal flow-voids are seen within the arteries of the [id number]. The orbits and paranasal sinuses appear normal. The mastoid air cells appear clear. Impression: 1. Cerebral atrophy and chronic small vessel ischemic disease 2. 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 No sign of acute infarction Electronically signed by Patricio Lee 03-29-2024 5:43 PM
[2024-03-29] MEDS: hydrALAZINE HCL 20 MG/ML VIAL IV PRN (18:27)
--- NOTE | 2024-03-29 18:50 | CT Scan Report ---
Clinical history: Axial computed tomography images were obtained of the temporal bones without intravenous contrast. Sagittal and coronal reconstructions were obtained Findings: The external auditory canals appear unremarkable. There is opacification of the left mastoid air cells. There is opacification of the left middle ear cavity. This is most likely due to otitis media The cochlea and semicircular canals appear unremarkable. No obvious abnormality of the internal auditory canals is seen No fracture is identified. No focal osseous lesion is noted. The temporal mandibular joints appear unremarkable The visualized paranasal sinuses appear clear. The orbits appear unremarkable. No definite soft tissue mass or fluid collection is noted. There are no radiopaque foreign bodies Impression: 1. Left otitis media 2. Opacification of the left mastoid air cells, concerning for inflammatory mastoiditis Electronically signed by Patricio Lee 03-29-2024 6:49 PM
[2024-03-29] MEDS: hydrALAZINE 10 MG TAB PO SCH (20:40)
[2024-03-29 21:28] LABS: Adenovirus F 40/41 PCR Not Detected (NotDetected); Astrovirus PCR Not Detected (NotDetected); Campylobacter PCR Not Detected (NotDetected); Cryptosporidium PCR Not Detected (NotDetected); Cyclospora cayetanensis PCR Not Detected (NotDetected); Entamoeba histolytica PCR Not Detected (NotDetected); Enteroaggregative E.coli(EAEC) Not Detected (NotDetected); Enteropathogenic E.coli (EPEC) Not Detected (NotDetected); Enterotoxigenic E.coli (ETEC) Not Detected (NotDetected); Giardia lamblia PCR Not Detected (NotDetected); Norovirus GI/GII PCR Not Detected (NotDetected); Plesiomonas shigelloides PCR Not Detected (NotDetected); Rotavirus A PCR Not Detected (NotDetected); Salmonella PCR Not Detected (NotDetected); Sapovirus PCR Not Detected (NotDetected); Shiga-like Toxin E.coli (STEC) Not Detected (NotDetected); Shigella/Enteroinvasive E.coli Not Detected (NotDetected); Vibrio cholerae PCR Not Detected (NotDetected); Vibrio species PCR Not Detected (NotDetected)
[2024-03-29 21:36] LABS: Yersinia enterocolitica PCR DETECTED (NotDetected)
[2024-03-29] MEDS: GENTAMICIN SULFATE 150 MG in DEXTROSE 5% 100 ML IV SCH (22:59)
[2024-03-29] MEDS: GENTAMICIN CONSULT ACTIVE STA (23:01)
--- NOTE | 2024-03-29 23:11 | Communication Note ---
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 Nonbloody loose stools as per RN. Leukocytosis and fever in a.m. AP Yersinia colitis Add gentamicin to current Ceftriaxone Rx given ongoing sepsis
[2024-03-30] MEDS ORDERED: GENTAMICIN CONSULT ACTIVE SCH (01:00)
[2024-03-30 06:05] LABS: Albumin Globulin Ratio 1.2 (0.9-2); BUN Creatinine Ratio 27.1 (10-20); Bilirubin,Total 0.3 mg/dl (0.2-1.0); Calcium 7.8 mg/dl (8.6-10.3); Creatinine Clr Calc Pharmacy 29.3 ml/min; Globulin 2.6 gm/dl (2.5-4.0); Magnesium 1.9 mg/dl (1.7-2.4); Phosphorus 3.2 mg/dl (2.5-4.9); Potassium 3.6 mmol/L (3.5-5.1); Total Protein 5.6 gm/dl (6.0-8.3)
[2024-03-30 06:09] LABS: Basophils # (auto) 0.01 K/uL (0.00-0.20); Basophils % (auto) 0.1 %; Hematocrit (blood only) 36.5 % (42.0-52.0); Hemoglobin 12.3 g/dl (14.0-18.0); Immature Granulocytes # (auto) 0.14 K/uL (0.01-0.20); Immature Granulocytes % (auto) 1.3 %; Lymphocytes # (auto) 0.63 K/uL (1.20-3.40); Lymphocytes % (auto) 6.1 %; Mean Corpuscular Hemoglobin 29.5 pg (25.0-34.0); Mean Corpuscular Hgb Conc 33.7 g/dL (32.0-36.0); Mean Corpuscular Volume 87.5 fL (80.0-100.0); Mean Platelet Volume 9.9 fL (9.4-12.4); Monocytes # (auto) 0.42 K/uL (0.11-0.59); Neutrophils # (auto) 9.19 K/uL (1.40-6.50); Neutrophils % (auto) 88.5 %; Platelet Count 178 K/uL (130-400); RDW Coefficient of Variation 13.3 % (11.5-14.5); RDW Standard Deviation 42.6 fL (36.4-46.3); Red Blood Count 4.17 M/uL (4.70-6.10); White Blood Count 10.39 K/ul (4.8-10.8)
[2024-03-30] MEDS ORDERED: LIDOCAINE 2% 2 ML VIAL/AMP(20MG/ML) INFIL ONE (06:55)
[2024-03-30] MEDS ORDERED: DEXAMETHASONE SOD INJ 4 MG/ML VIAL ONE (06:55)
[2024-03-30] MEDS ORDERED: ONDANSETRON INJ 2 MG/ML 2 ML VIAL ONE (06:55)
[2024-03-30] MEDS ORDERED: PROPOFOL IV EMULSION 10 MG/ML 20 ML VIAL IV ONE (06:55)
[2024-03-30] MEDS ORDERED: fentaNYL citrate PF 100 MCG/2 ML VIAL ONE (06:56)
[2024-03-30] MEDS ORDERED: MIDAZOLAM HCL 1 MG/ML 2ML VIAL ONE (06:56)
[2024-03-30] MEDS ORDERED: Nursing to Pharmacy Communication SCH (07:00)
--- NOTE | 2024-03-30 07:04 | Anesthesiology Consultation ---
Date of Service March 30, 2024 Assessment & Plan Chart Review Chart Review: Acceptable Risk for Surgery and Patient NOT seen in Pre Admission Testing Consults Requested none ASA ASA4 Proposed Anesthesia Anesthesia Type: General Risk / Benefits Reviewed With: PT / POA / Parent / Guardian, Accepts Plan and Informed Consent Obtained History Surgery Operation Date: 03/30/24 07:15 Proposed Procedures p Left Myringoplasty with Tube Placement - Frankie Harris DO s As Above - Frankie Harris DO Height/Weight Height: 5 ft 7 in Weight: 74 kg Allergies Allergy/AdvReac Type Severity Reaction Status Date / Time No Known Allergies Allergy Unverified 03/27/24 18:06 Medications Home Medications Medication Instructions Recorded Confirmed Last Taken lisinopril 20 mg tablet 20 mg PO HS 03/27/24 03/27/24 03/26/24 Active Medications Generic Name Dose Route Start Last Admin Trade Name Freq PRN Reason Stop Dose Admin Acetaminophen 650 mg 03/27/24 21:27 03/29/24 20:39 Acetaminophen 325 Mg Tab PO 04/26/24 21:26 650 mg Q4H PRN Administration Pain or Fever Amlodipine Besylate 2.5 mg 03/29/24 21:00 03/29/24 20:40 Amlodipine Besylate 5 Mg Tab PO 04/28/24 20:59 2.5 mg BID DONNA Administration Hydralazine HCl 5 mg 03/29/24 12:24 03/29/24 18:27 Hydralazine Hcl 20 Mg/Ml Vial IV 04/28/24 12:23 5 mg Q8H PRN Administration SBP >180 Hydralazine HCl 10 mg 03/29/24 21:00 03/29/24 20:40 Hydralazine 10 Mg Tab PO 04/28/24 20:59 10 mg TID DONNA Administration Ceftriaxone Sodium 2,000 mg in 50 mls @ 100 mls/hr 03/28/24 05:00 03/30/24 05:52 Rocephin IV 04/07/24 04:59 Infused Q12H DONNA Infusion Pantoprazole Sodium 40 mg in 10 mls @ 5 mls/min 03/28/24 09:00 03/29/24 09:34 Protonix IV 04/27/24 08:59 5 mls/min DAILY DONNA Administration Dexamethasone 10 mg/ Syringe 2.5 mls @ 1 mls/min 03/28/24 04:00 03/30/24 04:54 IV 04/27/24 03:59 1 mls/min Q6H DONNA Administration Gentamicin Sulfate 150 mg/ 103.75 mls @ 100 mls/hr 03/29/24 23:00 03/30/24 00:24 Dextrose IV 04/08/24 22:59 Infused Q24H DONNA Infusion Potassium Phosphate 2 tab 03/29/24 09:00 03/29/24 20:44 Pot Phosphate Monobasic W/ Sod Tab PO 04/28/24 08:59 2 tab QID DONNA Administration NPO Date Last Intake of Fluids: 03/29/24 Last Intake of Fluids Comment: before midnight unsure of time Date Last Intake of Solids: 03/29/24 Time Last Intake of Solids: 19:30 Past Medical History Medical History CKD (chronic kidney disease) stage 3, GFR 30-59 ml/min HTN (hypertension) ASCVD Ao HLD YOSEPH Anemia Strep pneum. meningitis AR-mod. Exercise / Class Metabolic Activity III < 4 Walking/Shop/Light housework Past Family History Family History Other COPD (chronic obstructive pulmonary disease) Denies family history of Kidney disease Past Anesthesia History No Hx of Anesthesia Complications and No Family Hx of Anesthesia Complications History of PONV No Hx of PONV and No Hx of Motion Sickness Social History Smoking Status: Never smoker Hx Alcohol Use: No Hx Substance Use: No Physical Exam Vital Signs Last Vital Signs Temp 36.8 C 03/30/24 06:54 Pulse 70 03/30/24 06:54 Resp 20 03/30/24 06:54 BP 193/96 H 03/30/24 06:54 Pulse Ox 94 03/30/24 06:54 O2 Del Method Room Air 03/30/24 06:54 O2 Flow Rate 2 03/27/24 18:45 Constitutional no acute distress and not cachectic ENMT Mouth: no dentition abnormality Thyromental Distance: > or= 3.5 Finger Breadths Mallampati Class: II Neck normal visual inspection, trachea midline and + facial hair; neck extension not limited Respiratory normal respiratory effort Auscultation: + diminished lung sounds Cardiovascular Rate/Rhythm: regular rate and regular rhythm Heart Sounds: + murmur Vessels: no carotid bruit Musculoskeletal Spine: normal cervical ROM and no pain with cervical ROM Extremities: full ROM of extremities Neurologic moves all extremities Motor/Sensory: no sensory deficit Psychiatric Orientation: alert and oriented x 3 Testing Laboratory Results 03/30/24 05:24 03/30/24 05:24 PT 12.7 Seconds (9.0-12.0) H 03/27/24 15:37 INR 1.2 (0.9-1.1) H 03/27/24 15:37 APTT 32 Seconds (21-31) H 03/27/24 15:37 Urine Color Yellow 03/27/24 17:05 Urine Appearance Clear (Clear) 03/27/24 17:05 Urine pH 7.0 (4.5-7.5) 03/27/24 17:05 Ur Specific [place] 1.018 (1.000-1.030) 03/27/24 17:05 Urine Protein 2+ (Negative) H 03/27/24 17:05 Urine Glucose (UA) Negative (Negative) 03/27/24 17:05 Urine Ketones Negative (Negative) 03/27/24 17:05 Urine Nitrite Negative (Negative) 03/27/24 17:05 Ur Leukocyte Esterase Negative (Negative) 03/27/24 17:05 Urine WBC (Auto) 0-5 /hpf (0-5) 03/27/24 17:05 Urine RBC (Auto) 0-2 /hpf (0-2) 03/27/24 17:05 U Hyaline Cast (Auto) 0-2 /lpf (0-2) 03/27/24 17:05 U Epithel Cells (Auto) 0-2 /hpf (0-2) 03/27/24 17:05 Urine Bacteria (Auto) None Seen (None Seen) 03/27/24 17:05 03/27/24 18:02 Aerobic Blood Culture - Preliminary Blood No growth in Aerobic bottle after 48 hours. Anaerobic Blood Culture - Preliminary No growth in Anaerobic bottle after 48 hours. 03/27/24 15:37 Aerobic Blood Culture - Preliminary Blood No growth in Aerobic bottle after 48 hours. Anaerobic Blood Culture - Preliminary No growth in Anaerobic bottle after 48 hours. 03/28/24 Unknown Gram Stain - Final Cerebral Spinal Fluid CSF Culture - Preliminary No growth to date.
--- NOTE | 2024-03-30 07:07 | History & Physical Bridge Note ---
Date of Service March 30, 2024 History & Physical Bridge Note I have examined the patient, reviewed the History & Physical and in the interval since the performance of the History & Physical I have noted the following changes of clinical significance: no changes noted
[2024-03-30] MEDS: LACTATED RINGER'S 1,000 ML IV SCH (07:22)
--- NOTE | 2024-03-30 07:42 | Communication Note ---
Date of Service: March 30, 2024 03/27/2024-either a small medial left basilar infiltrate or small H/H 03/27/[id number] @ 91;LVH w/ QRS widening;? anteroseptal infarct 03/28/2024-NL LV sys. Fxn;EF 60%;Mild LVH;Grade 1 DD;AR-mod.;MR mild
[2024-03-30] MEDS ORDERED: fentaNYL citrate PF 100 MCG/2 ML VIAL IV PRN ×2 (07:44→08:00)
[2024-03-30] MEDS ORDERED: ATROPINE SULFATE 0.1 MG/ML 10ML SYR IV PRN ×2 (07:44→08:00)
[2024-03-30] MEDS ORDERED: PROMETHAZINE HCL 6.25 MG in SODIUM CHLORIDE 0.9% 50 ML IV PRN ×2 (07:44→08:00)
[2024-03-30] MEDS ORDERED: NALOXONE HCL 0.4 MG/1 ML VIAL/CARP IV PRN ×2 (07:44→08:00)
[2024-03-30] MEDS ORDERED: ePHEDrine sulfate 50 MG/ML AMP IV PRN ×2 (07:44→08:00)
[2024-03-30] MEDS ORDERED: ONDANSETRON INJ 2 MG/ML 2 ML VIAL IV PRN ×2 (07:44→08:00)
[2024-03-30] MEDS ORDERED: FLUMAZENIL 0.1 MG/1 ML 10 ML VIAL IV PRN ×2 (07:44→08:00)
[2024-03-30] MEDS: OXYMETAZOLINE 0.05% 30 ML BTL ONE (07:54)
[2024-03-30] MEDS ORDERED: LABETALOL HCL IV 5 MG/ML 20ML IV PRN ×2 (08:00→15:02)
[2024-03-30] MEDS: CIPRO 0.2%/HYDROCORTISONE 1% OTIC SUSP 10 ML BTL OT ONE (08:03)
--- NOTE | 2024-03-30 08:10 | Operative Report ---
PG Post Operative Report Pre & Post Diagnosis Operation Date: 03/30/24 07:15 <No data on this case meets the specified criteria> I identified the patient and participated in the time-out.: Yes Procedure Operation Date: 03/30/24 07:15 <No data on this case meets the specified criteria> Surgeon Frankie Harris, DO [employer] NONE Estimated Blood Loss 2 Findings Consistent with Post-Op Diagnosis Left acute otitis media. Clear reaccumulating fluid, concerning for CSF Fluids 800mL Specimens 1. Left middle ear culture 2. Left middle ear for beta 2 transferrin Drains none Anesthesia Type General Complications none Disposition Accompanied Patient To Recovery: Yes Indications 73 yo male with meningitis, and a left acute otitis media Description of Procedure Time out held, procedure verified. Attention was directed to the left ear. A myringotomy was made inferiorly and anteriorly. Mucopurulent fluid was noted. This was cultured. Next a culture trap was used to obtain fluid/specimen for beta 2 transferrin testing. After the mucopus was suctioned away, crystal clear fluid was noted to be filling the middle ear space. This was also suctioned into the trap for beta 2 transferrin. This fluid was concerning to be CSF due to its crystal clear and thin appearance. Thus, a tube was not placed. Cipro Otic drops were applied and cotton ball placed. Patient was returned to anesthesia, awakened and taken to PACU in stable condition I attest to the content of the Intraoperative Record and any orders documented therein. Any exceptions are noted below.
[2024-03-30] MEDS: LABETALOL HCL IV 5 MG/ML 20ML IV PRN (08:34)
--- NOTE | 2024-03-30 08:39 | Ears,Nose,Throat Progress Note ---
Date of Service March 30, 2024 Assessment & Plan (1) Acute otitis media: Plan Myringotomy performed this am. Culture obtained. Fluid sent for beta 2 transferrin. The middle ear fluid was crystal clear and thin, very suspicious for CSF. In addition, CT temporal bone with a likely skull base defect in the tegmen. Patient will need to see neuro-otology +/- neurosugery at [facility] in the near future to discuss procedure to repair the CSF leak. This is likely the cause of his meningitis. Defer further treatment with IV abx to primary team Cipro Otic to the left ear twice daily for 14 days Admission and Anticipated Discharge Date Admission Date: March 27, 2024 Subjective Pt s/p left myringotmy this am. Results & Data Vital Signs (Past 12 Hours) Vital Signs Temp Pulse Pulse Resp BP BP Pulse Ox 03/30/24 08:34 69 175/90 H 03/30/24 08:30 62 16 176/100 H 95 03/30/24 08:20 68 18 172/82 H 95 03/30/24 08:10 36.2 C L 80 14 175/90 H 92 03/30/24 07:07 65 03/30/24 06:54 36.8 C 70 20 193/96 H 94 03/30/24 02:51 36.7 C 76 18 170/93 H 94 03/29/24 23:00 75 03/29/24 22:57 77 18 176/94 H 94 O2 Del Method O2 Flow Rate 03/30/24 08:34 03/30/24 08:30 Oxymask 2 03/30/24 08:20 Oxymask 2 03/30/24 08:10 Oxymask 2 03/30/24 07:07 03/30/24 06:54 Room Air 03/30/24 02:51 Room Air 03/29/24 23:00 03/29/24 22:57 Room Air (1) Acute otitis media Otitis media type: suppurative Laterality: left Recurrence: not specified as recurrent Spontaneous tympanic membrane rupture: without spontaneous rupture Qualified Code(s): H66.002 - Acute suppurative otitis media without spontaneous rupture of ear drum, left ear
--- NOTE | 2024-03-30 09:01 | Anesthesiology Progress Note ---
Date of Service March 30, 2024 Anesthesia Post Procedure Vital Signs Vital Signs: Temp Pulse Pulse Resp BP BP Pulse Ox 03/30/24 08:50 70 174/95 H 03/30/24 08:49 70 19 174/95 H 94 03/30/24 08:40 77 183/83 H 03/30/24 08:40 77 21 183/83 H 90 03/30/24 08:34 69 175/90 H 03/30/24 08:30 62 16 176/100 H 95 03/30/24 08:20 68 18 172/82 H 95 03/30/24 08:10 36.2 C L 80 14 175/90 H 92 03/30/24 07:07 65 03/30/24 06:54 36.8 C 70 20 193/96 H 94 03/30/24 02:51 36.7 C 76 18 170/93 H 94 03/29/24 23:00 75 03/29/24 22:57 77 18 176/94 H 94 03/29/24 20:36 36.7 C 79 18 190/92 H 95 03/29/24 18:50 169/82 H 03/29/24 17:46 79 03/29/24 16:10 36.9 C 76 18 192/83 H 95 03/29/24 12:46 177/93 H 03/29/24 11:57 37.4 C 77 26 H 195/88 H 94 O2 Del Method O2 Flow Rate 03/30/24 08:50 03/30/24 08:49 Room Air 03/30/24 08:40 03/30/24 08:40 Room Air 03/30/24 08:34 03/30/24 08:30 Oxymask 2 03/30/24 08:20 Oxymask 2 03/30/24 08:10 Oxymask 2 03/30/24 07:07 03/30/24 06:54 Room Air 03/30/24 02:51 Room Air 03/29/24 23:00 03/29/24 22:57 Room Air 03/29/24 20:36 Room Air 03/29/24 18:50 03/29/24 17:46 03/29/24 16:10 Room Air 03/29/24 12:46 03/29/24 11:57 Room Air Pain Intensity Left Cheek: Pain Intensity: 3 Head: Pain Intensity: 4 Transfer of Care Handoff Completed per policy Notes Mental Status: alert / awake / arousable Patient Amnestic to Procedure: Yes Nausea / Vomiting: adequately controlled Pain: adequately controlled Airway Patency, RR, SpO2: stable & adequate BP & HR: stable & adequate Hydration State: stable & adequate Anesthetic Complications: no major complications apparent
--- NOTE | 2024-03-30 11:27 | Pharmacy Report ---
Pharmacy PK ABX Note - Date of Service March 30, 2024 - Assessment and Plan Assessment 03/30: * Day #2 Vancomycin and Day #4 Ceftriaxone for treatment of meningitis. * Strep pneumoniae positive in CSF biofire. No growth in CSF bacterial culture to date. * Underwent myringotomy this AM. Culture from middle ear fluid was sent and is pending. Possible CSF leak per ENT note. 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 Was given a dose of Gentamicin for this. Discussed with attending this AM and agreed that antimicrobial treatment for this stool bacteria is unnecessary given lack of moderate-severe symptoms. Will treat supportively. Notified Nephrology of Gentamicin dose given YOSEPH and risk of concomitant nephrotoxicity with Vancomycin. * Leukocytosis improved, 10.4k today. SCr continues to trend downward, 2.10 mg/dL this AM. Awaiting growth in CSF or ear culture to narrow abx further. Of note, according to [facility]'s most recent antibiogram, 91% of meningitic S. pneumoniae isolates were sensitive to Ceftriaxone. 03/29: 73 year old M receiving Vancomycin and Ceftriaxone for treatment of meningitis. * Day #3 of ceftriaxone and Day #1 of Vancomycin. Patient previously on Daptomycin, Ampicillin, and Acyclovir from 03/27-03/29 as well. * CSF PCR is positive for Streptococcus pneumoniae. ID consulted and recommends Vanc + Ceftriaxone until sensitivities return. * 24-hr Tmax of 38.5oC. Leukocytosis improving, 15k today. SCr slightly improved to 2.31 mg/dL this AM (CrCl 27 mL/min). Plan Vancomycin * Received 1500 mg of IV vancomycin on 03/29/24 at 1334. This was ~20 mg/kg. * Random level obtained 03/30/24 resulted as 9.3 mcg/mL. This is slightly below goal range. * Continue to dose per level for now. Will give 1250 mg IV x 1 today around 1200. This is ~17 mg/kg. * Repeat random level ordered for: 03/31/24 Ceftriaxone * 2000 mg IV every 12 hours Pharmacy will continue to follow and will adjust dose/frequency as necessary. Thank you. Pharmacy has transitioned to AUC monitoring for vancomycin. AUC/VERONIQUE is the preferred PK/PD target and is associated with decreased risk of nephrotoxicity compared to traditional trough targets.
[2024-03-30] MEDS: VANCOMYCIN HCL 1,250 MG in SODIUM CHLORIDE 0.9% 250 ML IV STA (12:23)
[2024-03-30] MEDS ORDERED: VANCOMYCIN HCL 1,000 MG in SODIUM CHLORIDE 0.9% 250 ML IV SCH (12:30)
[2024-03-30] MEDS: hydrALAZINE HCL 20 MG/ML VIAL IV PRN (14:19)
--- NOTE | 2024-03-30 14:22 | Nephrology Progress Note ---
Date of Service March 30, 2024 Assessment & Plan (1) HTN (hypertension): Plan: now more severe HTN in setting of NS resuscitation (now stopped) and ongoing obligate dexamethasone. sbp 160-170s since admission; spike to SBP > 200s today in setting of fever, steroids, ?+/- recent procedure. no sx. -would not eval for nephrotic syndrome yet as we have good reasons above for HTN; do note though while not nephrotic on exam, serum albumin 3.0, though he presents in setting of illness goal is SBP in 150s has had 3 doses of labetalol today 5 mg IV and w/ nitropaste currently -started on tid hydralazine 10 mg on 03/29 > increased to 25 mg tid (hold for sbp <140 for now; so ordered) -continue hydralazine 10mg IV q6 prn sbp >180 -added labetalol 5 mg IV q4h prn sbp > 180 if can't have hydralazine -standing labetalol 100 mg bid and will give extra dose now -slated to start lisinopril 20 mg OP dose this evening > would hold off given uncontrolled HTN and gent dosing -increased amlodipine to 5 mg bid w/ extra 2.5 mg now Care coordinated w/ Dr Mulligan regarding BP, BP med changes, CSF leak concern, need for ongoing labs, I/O >> we are in agreement. (2) YOSEPH (acute kidney injury): Plan: resolved nonoliguric Stage 1 YOSEPH on CKD 3B, unknown proteinuria status, baseline creatinine 2.1 as far as we know. presented w/ creatinine 2.8; down to 2.1 today. still at significant risk for worsening renal function w/ ongoing fever, vanco/gent dosing, labile and often severe HTN. on vancomycin and ceftriaxone; defer to ID/primary service if further gent needed -daily bmp -continue avoidance of nsaids, nephrotoxins unless life/limb saving -suggest dose vancomycin by level >> vanco level today 9.3; had another vanco dose today; cont to dose by level -no need for urgent dialysis -cont strict I/O (3) CKD (chronic kidney disease) stage 3, GFR 30-59 ml/min: Plan: CKD 3B w/ presumptove baseline 2.1, eGFR 33 >spot prot/creat as OP or here if HTN persists w/o cause -BP control will be crucial as OP; did explain this (4) Streptococcus pneumoniae meningitis: Plan: on vanco and ceftriaxone; hopefully can stop vanco soon pending sensitivities concern for CSF leak to be repaired/evaluated as OP Admission and Anticipated Discharge Date Admission Date: March 27, 2024 Subjective s/p myringotomy for acute otitis media this am > concern for CSF leak noted at procedure; needs neuro-otology/NS [facility] referral close in for repair of leak; ENT attributes meningitis to leak. cxs pending. dosed w/ gent for Yersinia in stool biofire; d/t mild sx, no further doses. marked HTN this PM > 217/91 Physical Exam 2 Constitutional: well developed, well nourished, average body habitus, + altered mental status (? slight confusion) and cooperative; no acute distress Eyes: EOM intact bilaterally ENMT: Mouth: + dry oral mucous membranes Respiratory: normal respiratory effort and + tachypneic (slight); no respiratory distress and no cough Auscultation: + diminished lung sounds Cardiovascular: RRR, no murmur, no edema Gastrointestinal (Abdomen): Inspection/Auscultation: normal bowel sounds P ercussion/Palpation: abdomen soft; abdomen nontender Musculoskeletal: Extremities: strength 5/5 throughout Skin: no rashes, warm and dry (quite plethoric ) Psychiatric: Orientation: alert and oriented x 3 Results & Data Vital Signs (Past 12 Hours) Vital Signs Temp Pulse Pulse Resp BP BP Pulse Ox 03/30/24 13:58 37.7 C H 68 20 217/91 H 97 03/30/24 10:58 37.5 C 77 16 167/83 H 93 03/30/24 09:19 36.7 C 68 18 169/77 H 93 03/30/24 09:00 36.5 C 69 21 154/87 H 94 03/30/24 08:50 70 19 174/95 H 94 03/30/24 08:50 70 174/95 H 03/30/24 08:40 77 183/83 H 03/30/24 08:40 77 21 183/83 H 90 03/30/24 08:34 69 175/90 H 03/30/24 08:30 62 16 176/100 H 95 03/30/24 08:20 68 18 172/82 H 95 03/30/24 08:10 36.2 C L 80 14 175/90 H 92 03/30/24 07:07 65 03/30/24 06:54 36.8 C 70 20 193/96 H 94 03/30/24 02:51 36.7 C 76 18 170/93 H 94 O2 Del Method O2 Flow Rate 03/30/24 13:58 Room Air 03/30/24 10:58 Room Air 03/30/24 09:19 Nasal Cannula 2 03/30/24 09:00 Nasal Cannula 2 03/30/24 08:50 Room Air 03/30/24 08:50 03/30/24 08:40 03/30/24 08:40 Room Air 03/30/24 08:34 03/30/24 08:30 Oxymask 2 03/30/24 08:20 Oxymask 2 03/30/24 08:10 Oxymask 2 03/30/24 07:07 03/30/24 06:54 Room Air 03/30/24 02:51 Room Air Laboratory Results 03/30/24 05:24 03/30/24 05:24
[2024-03-30] MEDS: NITROGLYCERIN 2% OINTMENT 30GM TUBE EXT ONE (14:28)
--- NOTE | 2024-03-30 15:04 | Hospitalist Progress Note ---
Date of Service March 30, 2024 Assessment & Plan (1) Sepsis: (2) Altered mental status: Plan 73-year-old male with history of hypertension on lisinopril, chronic kidney disease, presenting with fever and confusion which started the day prior to admission. Currently being treated for acute bacterial meningitis with chronic otomastoiditis, YOSEPH and Elevated troponin levels. Sepsis Acute bacterial meningitis Chronic Otomastoiditis Presents with Fever, confusion, neck rigidity on exam LP noting strep pneumoniae meningitis CT head noting chronic otomastoiditis MRI brain pending- chronic small vessel changes with tiny infarct left centrum semioval and no acute infarction CT temporal bones pending per the request of ENT as soon as possible- no evidence of any fracture Blood cx NGTD CSF cultures pending Neurology consulted, appreciate recs ID consulted, appreciate further rec Originally on daptomycin, ceftriaxone, ampicillin, Decadron, acyclovir-all renally dosed in light of acute renal failure Currently on IV Rocephin and Vancomycin (being renally dosed) with Decadron per ID recs Antibiotic has been changed to intravenous ceftriaxone 2 g every 12 hours Further recommendation is pending Possible left otitis media versus mastoiditis Noted on head CT Antibiotics per above ID consult as above ENT consult as above -requesting CT temporal bone, NPO after midnight for placement of an ear tube in the OR on 03/30/24 Appreciate ENT input and recommendation- status post left Myringotomy Culture from the middle ear fluid is pending Acute renal failure, on CKD Likely prerenal secondary to poor oral intake and ATN from sepsis As per , the patient was told that he has some kidney disease in the past Creatinine currently 2.8 UA: Positive +[address] abdomen pelvis: Showing bilateral renal scarring IV NSS ordered Appreciate nephrology input and recommendation Troponin elevation Demand Ischemia Likely secondary to YOSEPH Troponin 74.9, 92.1, 103.9 to 78.2 No cardiac symptoms EKG no signs of acute ischemia or infarct but abnormal Echocardiogram noting EF of 60 to 65%, no regional wall motion abnormalities, Grade 1 diastolic dysfunction, moderate aortic regurgitation, mild MR Hypertension Hold lisinopril in light of acute kidney injury and marginal blood pressure Blood pressure has improved significantly with systolic sometimes greater than 180 Started on amlodipine 2.5 mg twice daily, as needed hydralazine 5 mg for SBP greater than 180 Blood pressure seems to be elevated Nephrology is titrating the blood pressure medications Hypophosphatemia Replete as needed DVT prophylaxis: SCDs for now in light of lumbar tap Full code Dispo: PT/OT to be ordered once more medically stable Discussed with the family members Admission and Anticipated Discharge Date Admission Date: March 27, 2024 Subjective 03/30/2024 The patient was seen and examined in telemetry unit in presence of the family members He has been feeling better but complains to have headache following status post left Miringotomy He denies any nausea no vomiting, no photophobia and no fever and or chills Review of Systems Review of Systems: All systems reviewed and are unremarkable except as noted below Physical Exam Physical Exam: Lying in bed without any acute distress Constitutional: well developed, well nourished, + ill appearing and average body habitus Eyes: PERRL, conjunctivae normal, anicteric sclerae ENMT: external ear and nose normal, oropharynx normal Neck: trachea midline, no thyromegaly Respiratory: no respiratory distress Auscultation: lungs clear to auscultation bilaterally Cardiovascular: Rate/Rhythm: regular rate and regular rhythm; not tachycardic Heart Sounds: normal S1 and normal S2; no murmur Extremities: no edema Gastrointestinal (Abdomen): Inspection/Auscultation: normal bowel sounds; abdomen not distended Percussion/Palpation: abdomen soft; abdomen nontender Musculoskeletal: No acute arthritis involving any of the joint Neurologic: normal touch/pain/proprioception and moves all extremities; no focal motor deficits No neck stiffness, no photophobia and negative Kernig and Brudzinski signs Lymphatic: no cervical or axillary lymphadenopathy Results & Data Results & Data Vital Signs (Past 12 Hours) Vital Signs Temp Pulse Pulse Resp BP BP Pulse Ox 03/30/24 13:58 37.7 C H 68 20 217/91 H 97 03/30/24 10:58 37.5 C 77 16 167/83 H 93 03/30/24 09:19 36.7 C 68 18 169/77 H 93 03/30/24 09:00 36.5 C 69 21 154/87 H 94 03/30/24 08:50 70 19 174/95 H 94 03/30/24 08:50 70 174/95 H 03/30/24 08:40 77 183/83 H 03/30/24 08:40 77 21 183/83 H 90 03/30/24 08:34 69 175/90 H 03/30/24 08:30 62 16 176/100 H 95 03/30/24 08:20 68 18 172/82 H 95 03/30/24 08:10 36.2 C L 80 14 175/90 H 92 03/30/24 07:07 65 03/30/24 06:54 36.8 C 70 20 193/96 H 94 O2 Del Method O2 Flow Rate 03/30/24 13:58 Room Air 03/30/24 10:58 Room Air 03/30/24 09:19 Nasal Cannula 2 03/30/24 09:00 Nasal Cannula 2 03/30/24 08:50 Room Air 03/30/24 08:50 03/30/24 08:40 03/30/24 08:40 Room Air 03/30/24 08:34 03/30/24 08:30 Oxymask 2 03/30/24 08:20 Oxymask 2 03/30/24 08:10 Oxymask 2 03/30/24 07:07 03/30/24 06:54 Room Air Laboratory Results Short CBC 03/30/24 Range/Units 05:24 WBC 10.39 (4.8-10.8) K/ul Hgb 12.3 L (14.0-18.0) g/dl Hct 36.5 L (42.0-52.0) % Plt Count 178 (130-400) K/uL BMP 03/30/24 05:24 Sodium 140 Potassium 3.6 Chloride 108 H Carbon Dioxide 23 BUN 57 H Creatinine 2.10 H Glucose 159 H Calcium 7.8 L Liver Function 03/30/24 Range/Units 05:24 Total Bilirubin 0.3 (0.2-1.0) mg/dl AST 23 (13-39) U/L ALT 37 (7-52) U/L Alkaline Phosphatase 48 (34-104) U/L Albumin 3.0 L (3.4-5.0) gm/dl Medications Administered Current Inpatient Medications Acetaminophen (Acetaminophen 325 Mg Tab) 650 mg PO Q4H PRN PRN Reason: Pain or Fever Stop: 04/26/24 21:26 Last Admin: 03/30/24 14:19 Dose: 650 mg Amlodipine Besylate (Amlodipine Besylate 5 Mg Tab) 2.5 mg PO BID DONNA Stop: 04/28/24 20:59 Last Admin: 03/30/24 09:25 Dose: 2.5 mg Atropine Sulfate (Atropine Sulfate 0.1 Mg/Ml 10ml Syr) 1 mg IV Q3M PRN PRN Reason: symptomatic bradycardia Stop: 04/26/24 22:39 Atropine Sulfate (Atropine Sulfate 0.1 Mg/Ml 10ml Syr) 0.5 mg IV Q1M PRN PRN Reason: PACU Use-HR<40 &/or Bradycardi Stop: 03/30/24 15:44 Ciprofloxacin/Hydrocortisone (Cipro 0.2%/Hydrocortisone 1% Otic Susp 10 Ml Btl) 5 drops OTL BID [facility] Stop: 04/29/24 20:59 Ephedrine Sulfate (Ephedrine Sulfate 50 Mg/Ml Amp) 5 mg IV Q5M PRN PRN Reason: PACU Use Only-SBP<90 mmHg Stop: 03/30/24 15:44 Fentanyl Citrate (Fentanyl Citrate Pf 100 Mcg/2 Ml Vial) 25 mcg IV Q5M PRN PRN Reason: PACU Use Only-Pain Stop: 03/30/24 15:44 Flumazenil (Flumazenil 0.1 Mg/1 Ml 10 Ml Vial) 0.2 mg IV Q2M PRN PRN Reason: PACU Use Only-Benzo Reversal Stop: 03/30/24 15:45 Hydralazine HCl (Hydralazine 10 Mg Tab) 10 mg PO TID [facility] Stop: 04/28/24 20:59 Last Admin: 03/30/24 14:05 Dose: 10 mg Hydralazine HCl (Hydralazine Hcl 20 Mg/Ml Vial) 10 mg IV Q6H PRN PRN Reason: SBP >180 Stop: 04/28/24 12:23 Last Admin: 03/30/24 14:19 Dose: 10 mg Ceftriaxone Sodium (Rocephin) 2,000 mg in 50 mls @ 100 mls/hr IV Q12H [facility] Stop: 04/07/24 04:59 Last Infusion: 03/30/24 05:52 Dose: Infused Pantoprazole Sodium (Protonix) 40 mg in 10 mls @ 5 mls/min IV DAILY [facility] Stop: 04/27/24 08:59 Last Admin: 03/30/24 09:25 Dose: 5 mls/min Dexamethasone 10 mg/ Syringe 2.5 mls @ 1 mls/min IV Q6H [facility] Stop: 04/27/24 03:59 Last Admin: 03/30/24 09:26 Dose: 1 mls/min Lactated Ringer's (Lr) 1,000 mls @ 15 mls/hr IV .Q24H [facility] Stop: 03/31/24 05:59 Last Infusion: 03/30/24 14:42 Dose: Infused Promethazine HCl 6.25 mg/ (Sodium Chloride) 50.25 mls @ 204 mls/hr IV ONCE PRN PRN Reason: PACU Use Only-Nausea/Vomiting Stop: 03/30/24 15:45 Lisinopril (Lisinopril 20 Mg Tab) 20 mg PO HS [facility] Stop: 04/29/24 20:59 Miscellaneous Information (Vancomycin Consult Active) 1 each N/A UD PRN PRN Reason: Consult Stop: 04/28/24 12:25 Naloxone HCl (Naloxone Hcl 0.4 Mg/1 Ml Vial/Carp) 0.2 mg IV Q2M PRN PRN Reason: PACU Use Only-Opiate Reversal Stop: 03/30/24 15:45 Ondansetron HCl (Ondansetron Inj 2 Mg/Ml 2 Ml Vial) 4 mg IV ONCE PRN PRN Reason: PACU Use Only-Nausea/Vomiting Stop: 03/30/24 15:45 Potassium Phosphate (Pot Phosphate Monobasic W/ Sod Tab) 2 tab PO QID [facility] Stop: 04/28/24 08:59 Last Admin: 03/30/24 14:05 Dose: 2 tab
[2024-03-30] MEDS: amLODIPine BESYLATE 5 MG TAB PO ONE (16:05)
[2024-03-30] MEDS: hydrALAZINE HCL 25 MG TAB PO SCH (16:06)
[2024-03-30] MEDS: LABETALOL HCL 100 MG TAB PO ONE (16:10)
[2024-03-30] MEDS: amLODIPine BESYLATE 5 MG TAB PO SCH (20:13)
[2024-03-30] MEDS: LABETALOL HCL 100 MG TAB PO SCH (20:13)
[2024-03-30] MEDS: CIPRO 0.2%/HYDROCORTISONE 1% OTIC SUSP 10 ML BTL OTL SCH (20:14)
[2024-03-30] MEDS: ONDANSETRON INJ 2 MG/ML 2 ML VIAL IV PRN (22:02)
[2024-03-31] MEDS ORDERED: PROMETHAZINE 6.25 MG/50.25 ML BAG IV PRN (05:04)
[2024-03-31] MEDS: ACETAMINOPHEN 1,000 MG/100 ML VIAL IV STA (05:21)
[2024-03-31 05:48] LABS: Basophils # (auto) 0.03 K/uL (0.00-0.20); Basophils % (auto) 0.3 %; Hematocrit (blood only) 36.8 % (42.0-52.0); Hemoglobin 12.5 g/dl (14.0-18.0); Immature Granulocytes # (auto) 0.43 K/uL (0.01-0.20); Immature Granulocytes % (auto) 3.9 %; Lymphocytes # (auto) 0.69 K/uL (1.20-3.40); Lymphocytes % (auto) 6.2 %; Mean Corpuscular Hemoglobin 29.9 pg (25.0-34.0); Mean Platelet Volume 9.5 fL (9.4-12.4); Monocytes # (auto) 0.62 K/uL (0.11-0.59); Monocytes % (auto) 5.6 %; Neutrophils # (auto) 9.31 K/uL (1.40-6.50); Platelet Count 176 K/uL (130-400); RDW Coefficient of Variation 13.6 % (11.5-14.5); RDW Standard Deviation 43.9 fL (36.4-46.3); Red Blood Count 4.18 M/uL (4.70-6.10); White Blood Count 11.08 K/ul (4.8-10.8)
[2024-03-31 06:00] LABS: Albumin Globulin Ratio 1.2 (0.9-2); BUN Creatinine Ratio 26.7 (10-20); Bilirubin,Total 0.3 mg/dl (0.2-1.0); Calcium 7.4 mg/dl (8.6-10.3); Creatinine Clr Calc Pharmacy 29.3 ml/min; Globulin 2.6 gm/dl (2.5-4.0); Magnesium 1.9 mg/dl (1.7-2.4); Phosphorus 4.4 mg/dl (2.5-4.9); Potassium 3.6 mmol/L (3.5-5.1); Total Protein 5.6 gm/dl (6.0-8.3)
[2024-03-31] MEDS: PROMETHAZINE 6.25 MG/50.25 ML BAG IV STA (06:12)
--- NOTE | 2024-03-31 09:24 | Pharmacy Report ---
Pharmacy PK ABX Note - Date of Service March 31, 2024 - Assessment and Plan Assessment 03/31: * Day #3 Vancomycin and Day #5 ceftriaxone for treatment of meningitis * Gram stain for middle ear fluid with rare GPCs and few gram pos bacilli, continue vancomycin at least until C/S resulted per Dr. Mulligan * Renal function neither worsened or improved from yesterday, will continue to dose per levels 03/30: * Day #2 Vancomycin and Day #4 ceftriaxone for treatment of meningitis. * Strep pneumoniae positive in CSF biofire. No growth in CSF bacterial culture to date. * Underwent myringotomy this AM. Culture from middle ear fluid was sent and is pending. Possible CSF leak per ENT note. 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 Was given a dose of Gentamicin for this. Discussed with attending this AM and agreed that antimicrobial treatment for this stool bacteria is unnecessary given lack of moderate-severe symptoms. Will treat supportively. Notified Nephrology of Gentamicin dose given YOSEPH and risk of concomitant nephrotoxicity with Vancomycin. * Leukocytosis improved, 10.4k today. SCr continues to trend downward, 2.10 mg/dL this AM. Awaiting growth in CSF or ear culture to narrow abx further. Of note, according to [facility]'s most recent antibiogram, 91% of meningitic S. pneumoniae isolates were sensitive to Ceftriaxone. 03/29: 73 year old M receiving Vancomycin and Ceftriaxone for treatment of meningitis. * Day #3 of ceftriaxone and Day #1 of Vancomycin. Patient previously on Daptomycin, Ampicillin, and Acyclovir from 03/27-03/29 as well. * CSF PCR is positive for Streptococcus pneumoniae. ID consulted and recommends Vanc + Ceftriaxone until sensitivities return. * 24-hr Tmax of 38.5oC. Leukocytosis improving, 15k today. SCr slightly improved to 2.31 mg/dL this AM (CrCl 27 mL/min). Plan Vancomycin * Received 1500 mg of IV vancomycin on 03/29/24 at 1334. This was ~20 mg/kg. * Random level obtained 03/31/24 resulted as 10.9 mcg/mL. This is slightly less than ideal for meningitis treatment * Continue to dose per level for now. Will give 1250 mg IV x 1 again today. This is ~17 mg/kg. * Repeat random level ordered for: 04/01/24 Ceftriaxone * 2000 mg IV every 12 hours Pharmacy will continue to follow and will adjust dose/frequency as necessary. Thank you. Pharmacy has transitioned to AUC monitoring for vancomycin. AUC/VERONIQUE is the preferred PK/PD target and is associated with decreased risk of nephrotoxicity compared to traditional trough targets.
[2024-03-31] MEDS: VANCOMYCIN HCL 1,250 MG in SODIUM CHLORIDE 0.9% 250 ML IV ONE (10:54)
--- NOTE | 2024-03-31 14:23 | Cardiology Progress Note ---
Date of Service March 31, 2024 Assessment & Plan (1) Streptococcus pneumoniae meningitis: (2) YOSEPH (acute kidney injury): (3) HTN, goal below 130/80: (4) Dyslipidemia, goal LDL below 70: (5) Coronary atherosclerosis: (6) Ascending aorta dilatation: Plan Patient without any signs or symptoms suggestive of angina. Repeat EKG performed 03/30/2024 at 1611 and interpreted pendantly revealed sinus rhythm at 69 bpm with left ventricular hypertrophy pattern, age-indeterminate septal infarction pattern cannot be excluded, pattern suggestive of possible preexcitation. Stable findings. Blood pressure much improved on medications including amlodipine 5 mg twice daily, labetalol 100 mg p.o. twice daily, hydralazine 25 mg 3 times daily. I had a discussion with the patient that given his findings of coronary calcification on CT and underlying coronary risk factors that Future considerations include low-dose aspirin and starting a statin agent for preventative purposes. Patient expressed that his goal is to be on as few medications as possible and he left me with the impression that adherence is likely going to be an issue with regards to the regimen that he is already on and that he is not interested in adding additional medications at this time. I counseled him that the acute issue is getting his blood pressure under control and that we have made progress to that regard as well as ongoing treatment of his infection. Patient is now several days post lumbar puncture and had left myringotomy performed yesterday. Consider adding pharmacologic DVT prophylaxis with subcutaneous heparin. Admission and Anticipated Discharge Date Admission Date: March 27, 2024 Subjective Patient seen in cardiology follow-up. Spouse at bedside. Patient without acute cardiac complaint. States he feels overall much better compared to before coming to the hospital. Denies chest discomfort or shortness of breath. Physical Exam Physical Exam: General: no acute distress and stated age Eyes: conjunctiva are pink and non-injected, sclera clear Neck: normal jugular venous pulse, no hepatojugular reflux Chest: normal shape and normal respiratory effort Lungs: clear to auscultation and percussion Cardiac Exam: - regular heart sounds, no murmurs, rubs, or gallops, no jugular venous distention Abdomen: abdomen soft, non-tender, no abnormal masses and no hepatosplenomegaly Musculoskeletal: no gait disturbance, no weakness Extremities: no edema and no cyanosis Neuro:awake, conversant, follows commands, no focal motor deficits Results & Data Vital Signs (Past 12 Hours) Vital Signs Temp Pulse Pulse Resp BP Pulse Ox O2 Del Method 03/31/24 12:07 36.5 C 76 16 164/76 H 93 Room Air 03/31/24 07:52 36.9 C 66 18 171/70 H 95 Room Air 03/31/24 07:00 68 03/31/24 04:48 37.1 C 67 18 166/68 H 91 Room Air Laboratory Results Cardiac Enzymes 03/31/24 Range/Units 05:23 AST 49 H (13-39) U/L CBC 03/31/24 Range/Units 05:23 WBC 11.08 H (4.8-10.8) K/ul RBC 4.18 L (4.70-6.10) M/uL Hgb 12.5 L (14.0-18.0) g/dl Hct 36.8 L (42.0-52.0) % Plt Count 176 (130-400) K/uL Neut # (Auto) 9.31 H (1.40-6.50) K/uL Lymph # (Auto) 0.69 L (1.20-3.40) K/uL Ross # (Auto) 0.62 H (0.11-0.59) K/uL Eos # (Auto) 0.00 (0.00-0.50) K/uL Baso # (Auto) 0.03 (0.00-0.20) K/uL Comprehensive Metabolic Panel 03/31/24 Range/Units 05:23 Sodium 143 (136-145) mmol/L Potassium 3.6 (3.5-5.1) mmol/L Chloride 109 H (98-107) mmol/L Carbon Dioxide 23 (21-32) mmol/L BUN 56 H (6-23) mg/dl Creatinine 2.10 H (0.6-1.4) mg/dl Glucose 168 H (70-99(Fasting)) mg/dl Calcium 7.4 L (8.6-10.3) mg/dl AST 49 H (13-39) U/L ALT 79 H (7-52) U/L Alkaline Phosphatase 53 (34-104) U/L Total Protein 5.6 L (6.0-8.3) gm/dl Albumin 3.0 L (3.4-5.0) gm/dl Intake and Output 03/30/24 03/31/24 03/31/24 22:59 06:59 14:59 Intake Total 530 / 3330.25 625.25 / 3330.25 275 / 275 Output Total Balance 529 / 3073.25 624.25 / 3073.25 275 / 275 Intake: IV 50 / 1525.25 200.25 / 1525.25 275 / 275 Acetaminophen 1,000 mg In 100 100 / 100 ml @ 400 mls/hr IV NOW STA Rx#: [id number] Promethazine 6.25 mg In 50.25 50.25 / 50.25 ml @ 201 mls/hr IV NOW STA Rx#: [id number] Vancomycin HCl 1,250 mg In 275 / 275 Sodium Chloride 0.9% 250 ml @ 200 mls/hr IV NOW ONE Rx#: [id number] cefTRIAXone SODIUM 2,000 mg In 50 / 100 50 / 100 50 ml @ 100 mls/hr IV Q12H [facility] Rx#:[id number] Oral 480 / 905 425 / 905 Output: # Bowel Movements 1 / 2 1 / 2 Other: # Unmeasured Voids 2 1 Weight 73.8 kg Weight Measurement Method Built in [facility]
--- NOTE | 2024-03-31 15:11 | Hospitalist Progress Note ---
Date of Service March 31, 2024 Assessment & Plan (1) Sepsis: (2) Altered mental status: Plan 73-year-old male with history of hypertension on lisinopril, chronic kidney disease, presenting with fever and confusion which started the day prior to admission. Currently being treated for acute bacterial meningitis with chronic otomastoiditis, YOSEPH and Elevated troponin levels. Sepsis Acute bacterial meningitis Chronic Otomastoiditis Presents with Fever, confusion, neck rigidity on exam LP noting strep pneumoniae meningitis CT head noting chronic otomastoiditis MRI brain pending- chronic small vessel changes with tiny infarct left centrum semioval and no acute infarction CT temporal bones pending per the request of ENT as soon as possible- no evidence of any fracture Blood cx NGTD CSF cultures pending Neurology consulted, appreciate recs ID consulted, appreciate further rec Originally on daptomycin, ceftriaxone, ampicillin, Decadron, acyclovir-all renally dosed in light of acute renal failure Currently on IV Rocephin and Vancomycin (being renally dosed) with Decadron per ID recs Antibiotic has been changed to intravenous ceftriaxone 2 g every 12 hours Further recommendation is pending CSF and blood cultures are negative and culture from the middle ear is pending Discussed with the ID specialist and advised to wait for food sensitivity report before changing any antibiotic Possible left otitis media versus mastoiditis Noted on head CT Antibiotics per above ID consult as above ENT consult as above -requesting CT temporal bone, NPO after midnight for placement of an ear tube in the OR on 03/30/24 Appreciate ENT input and recommendation- status post left Myringotomy Culture from the middle ear fluid is pending-pinpoint growth and reintubating Acute renal failure, on CKD Likely prerenal secondary to poor oral intake and ATN from sepsis As per , the patient was told that he has some kidney disease in the past Creatinine currently 2.8 UA: Positive +[address] abdomen pelvis: Showing bilateral renal scarring IV NSS ordered Appreciate nephrology input and recommendation Troponin elevation Demand Ischemia Likely secondary to YOSEPH Troponin 74.9, 92.1, 103.9 to 78.2 No cardiac symptoms EKG no signs of acute ischemia or infarct but abnormal Echocardiogram noting EF of 60 to 65%, no regional wall motion abnormalities, Grade 1 diastolic dysfunction, moderate aortic regurgitation, mild MR Appreciate cardiology input and recommendation Hypertension Hold lisinopril in light of acute kidney injury and marginal blood pressure Blood pressure has improved significantly with systolic sometimes greater than 180 Started on amlodipine 2.5 mg twice daily, as needed hydralazine 5 mg for SBP greater than 180 Blood pressure seems to be elevated Nephrology is titrating the blood pressure medications Hypophosphatemia Replete as needed DVT prophylaxis: SCDs for now in light of lumbar tap Will start subcu heparin from today Full code Dispo: PT/OT to be ordered once more medically stable Discussed with the family members Admission and Anticipated Discharge Date Admission Date: March 27, 2024 Subjective 03/30/2024 The patient was seen and examined in telemetry unit in presence of the family members He has been feeling better but complains to have headache following status post left Miringotomy He denies any nausea no vomiting, no photophobia and no fever and or chills 03/31/2024 The patient was seen and examined in telemetry unit in presence of the family members He has been feeling much better and denies any significant symptoms His headache has improved, no back pain, no pain in the ears and does not have any fever and or chills Review of Systems Review of Systems: All systems reviewed and are unremarkable except as noted below Physical Exam Physical Exam: Lying in bed without any acute distress Constitutional: well developed, well nourished, + ill appearing and average body habitus Eyes: PERRL, conjunctivae normal, anicteric sclerae ENMT: external ear and nose normal, oropharynx normal Neck: trachea midline, no thyromegaly Respiratory: no respiratory distress Auscultation: lungs clear to auscultation bilaterally Cardiovascular: Rate/Rhythm: regular rate and regular rhythm; not tachycardic Heart Sounds: normal S1 and normal S2; no murmur Extremities: no edema Gastrointestinal (Abdomen): Inspection/Auscultation: normal bowel sounds; abdomen not distended Percussion/Palpation: abdomen soft; abdomen nontender Neurologic: normal touch/pain/proprioception and moves all extremities; no focal motor deficits Lymphatic: no cervical or axillary lymphadenopathy Results & Data Results & Data Vital Signs (Past 12 Hours) Vital Signs Temp Pulse Pulse Resp BP Pulse Ox O2 Del Method 03/31/24 12:07 36.5 C 76 16 164/76 H 93 Room Air 03/31/24 07:52 36.9 C 66 18 171/70 H 95 Room Air 03/31/24 07:00 68 03/31/24 04:48 37.1 C 67 18 166/68 H 91 Room Air Laboratory Results Short CBC 03/31/24 Range/Units 05:23 WBC 11.08 H (4.8-10.8) K/ul Hgb 12.5 L (14.0-18.0) g/dl Hct 36.8 L (42.0-52.0) % Plt Count 176 (130-400) K/uL [facility] 03/31/24 05:23 Sodium 143 Potassium 3.6 Chloride 109 H Carbon Dioxide 23 BUN 56 H Creatinine 2.10 H Glucose 168 H Calcium 7.4 L Liver Function 03/31/24 Range/Units 05:23 Total Bilirubin 0.3 (0.2-1.0) mg/dl AST 49 H (13-39) U/L ALT 79 H (7-52) U/L Alkaline Phosphatase 53 (34-104) U/L Albumin 3.0 L (3.4-5.0) gm/dl Medications Administered Short CBC 03/31/24 Range/Units 05:23 WBC 11.08 H (4.8-10.8) K/ul Hgb 12.5 L (14.0-18.0) g/dl Hct 36.8 L (42.0-52.0) % Plt Count 176 (130-400) K/uL [facility] 03/31/24 05:23 Sodium 143 Potassium 3.6 Chloride 109 H Carbon Dioxide 23 BUN 56 H Creatinine 2.10 H Glucose 168 H Calcium 7.4 L Liver Function 03/31/24 Range/Units 05:23 Total Bilirubin 0.3 (0.2-1.0) mg/dl AST 49 H (13-39) U/L ALT 79 H (7-52) U/L Alkaline Phosphatase 53 (34-104) U/L Albumin 3.0 L (3.4-5.0) gm/dl
[2024-03-31] MEDS: HEPARIN SOD 5,000 UNIT/0.5 ML VIAL SQ SCH (20:59)
[2024-04-01 05:48] LABS: Hematocrit (blood only) 35.3 % (42.0-52.0); Hemoglobin 12.1 g/dl (14.0-18.0); Mean Corpuscular Hgb Conc 34.3 g/dL (32.0-36.0); Mean Corpuscular Volume 87.6 fL (80.0-100.0); Mean Platelet Volume 9.6 fL (9.4-12.4); Nucleated RBC # (auto) 0.04 K/uL (0.00-0.12); Nucleated RBC % (auto) 0.4 %; Platelet Count 165 K/uL (130-400); RDW Coefficient of Variation 13.7 % (11.5-14.5); RDW Standard Deviation 43.8 fL (36.4-46.3); Red Blood Count 4.03 M/uL (4.70-6.10); White Blood Count 9.36 K/ul (4.8-10.8)
[2024-04-01 06:03] LABS: BUN Creatinine Ratio 25.9 (10-20); Calcium 7.2 mg/dl (8.6-10.3); Creatinine Clr Calc Pharmacy 31.9 ml/min; Potassium 3.4 mmol/L (3.5-5.1)
[2024-04-01 06:27] LABS: Basophils # (auto) 0.04 K/uL (0.00-0.20); Basophils % (auto) 0.4 %; Immature Granulocytes # (auto) 0.68 K/uL (0.01-0.20); Immature Granulocytes % (auto) 7.3 %; Lymphocytes # (auto) 0.79 K/uL (1.20-3.40); Lymphocytes % (auto) 8.4 %; Monocytes # (auto) 0.48 K/uL (0.11-0.59); Monocytes % (auto) 5.1 %; Neutrophils # (auto) 7.37 K/uL (1.40-6.50); Neutrophils % (auto) 78.8 %; RBC Morphology Unremarkable
--- NOTE | 2024-04-01 07:24 | Pharmacy Report ---
Pharmacy PK ABX Note - Date of Service April 01, 2024 - Assessment and Plan Assessment 04/01 * Day #4 Vancomycin and Day #6 ceftriaxone for treatment of meningitis * Middle ear fluid culture still pending * Renal function slightly improved today, unclear baseline serum creatinine, w ill continue to dose vancomycin per levels. 03/31: * Day #3 Vancomycin and Day #5 ceftriaxone for treatment of meningitis * Gram stain for middle ear fluid with rare GPCs and few gram pos bacilli, con tinue vancomycin at least until C/S resulted per Dr. Mulligan * Renal function neither worsened or improved from yesterday, will continue to dose per levels 03/30: * Day #2 Vancomycin and Day #4 ceftriaxone for treatment of meningitis. * Strep pneumoniae positive in CSF biofire. No growth in CSF bacterial culture to date. * Underwent myringotomy this AM. Culture from middle ear fluid was sent and is pending. Possible CSF leak per ENT note. 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 Was given a dose of Gentamicin for this. Discussed with attending this AM and agreed that antimicrobial treatment for this stool bacteria is unnecessary given lack of moderate-severe symptoms. Will treat supportively. Notified Nephrology of Gentamicin dose given YOSEPH and risk of concomitant nephrotoxicity with Vancomycin. * Leukocytosis improved, 10.4k today. SCr continues to trend downward, 2.10 mg/dL this AM. Awaiting growth in CSF or ear culture to narrow abx further. Of note, according to [facility]'s most recent antibiogram, 91% of meningitic S. pneumoniae isolates were sensitive to Ceftriaxone. 03/29: 73 year old M receiving Vancomycin and Ceftriaxone for treatment of meningitis. * Day #3 of ceftriaxone and Day #1 of Vancomycin. Patient previously on Daptomycin, Ampicillin, and Acyclovir from 03/27-03/29 as well. * CSF PCR is positive for Streptococcus pneumoniae. ID consulted and recommends Vanc + Ceftriaxone until sensitivities return. * 24-hr Tmax of 38.5oC. Leukocytosis improving, 15k today. SCr slightly improved to 2.31 mg/dL this AM (CrCl 27 mL/min). Plan Vancomycin * Received 1500 mg of IV vancomycin on 03/29/24 at 1334. This was ~20 mg/kg. * Random level obtained 04/01/24 resulted as 12.9 mcg/mL. OK to redose this AM. * Continue to dose per level for now. Will give 1250 mg IV x 1 again today. This is ~17 mg/kg. * Repeat random level ordered for: 04/02/24 Ceftriaxone * 2000 mg IV every 12 hours Pharmacy will continue to follow and will adjust dose/frequency as necessary. Thank you. Pharmacy has transitioned to AUC monitoring for vancomycin. AUC/VERONIQUE is the preferred PK/PD target and is associated with decreased risk of nephrotoxicity compared to traditional trough targets.
[2024-04-01] MEDS: VANCOMYCIN HCL 1,250 MG in SODIUM CHLORIDE 0.9% 250 ML IV ONE (08:55)
[2024-04-01] MEDS: POTASSIUM CHLORIDE CRTAB 20 MEQ TABCR PO STA (09:52)
[2024-04-01] MEDS: LABETALOL HCL 100 MG TAB PO ONE (09:52)
[2024-04-01] MEDS: TRIAMTERENE/HCTZ 37.5/25MG TAB PO SCH (09:52)
[2024-04-01] MEDS: POTASSIUM CHLORIDE CRTAB 20 MEQ TABCR PO SCH (09:58)
--- NOTE | 2024-04-01 13:07 | Nephrology Progress Note ---
Date of Service April 01, 2024 Assessment & Plan (1) HTN (hypertension): Plan: now more severe HTN in setting of ongoing obligate dexamethasone. sbp 160-170s since admission; 170-180s yesterday in setting of fever, steroids. no sx. -would not eval for nephrotic syndrome yet as we have good reasons above for HTN; do note though while not nephrotic on exam, serum albumin 3.0, though he presents in setting of illness goal is SBP in 150s -started on tid hydralazine 10 mg on 03/29 > increased to 25 mg tid 03/31 (hold for sbp <140 for now; so ordered) -continue hydralazine 10mg IV q6 prn sbp >180 and labetalol 5 mg IV q4h prn sbp > 180 if can't have hydralazine ->>increased labetalol 100>200 mg bid as of this AM >>resumed OP lisinopril 20 mg daily >>trial of hctz/trimaterene 1/ tab of 25 mg hctz dose -continue amlodipine 10 mg daily >>give K po 20 mEq x 1 for K 3.4 -cont daily BMP and for am ordered ARR >>check orthostatics >>>spent 15 min educating pt and family about importance of BP control and OP f/u on this for preservation of renal function and lowering CV risk Care coordinated w/ Dr Mulligan regarding BP, BP med changes, need for ongoing labs, I/O >> we are in agreement. (2) YOSEPH (acute kidney injury): Plan: resolved nonoliguric Stage 1 YOSEPH on CKD 3B, unknown proteinuria status, baseline creatinine 2.1 as far as we know. presented w/ creatinine 2.8; down to 2.1 today. still at significant risk for worsening renal function w/ ongoing fever, vanco/gent dosing, labile and often severe HTN. on vancomycin and ceftriaxone; defer to ID/primary service if further gent needed -daily bmp -continue avoidance of nsaids, nephrotoxins unless life/limb saving -suggest dose vancomycin by level >> vanco level today 9.3; had another vanco dose today; cont to dose by level -no need for urgent dialysis -cont strict I/O (3) CKD (chronic kidney disease) stage 3, GFR 30-59 ml/min: Plan: CKD 3B w/ presumptove baseline 2.1, eGFR 33 >spot prot/creat as OP or here if HTN persists w/o cause -BP control will be crucial as OP; did explain this (4) Streptococcus pneumoniae meningitis: Plan: on vanco and ceftriaxone; hopefully can stop vanco soon pending sensitivities concern for CSF leak to be repaired/evaluated as OP Admission and Anticipated Discharge Date Admission Date: March 27, 2024 Subjective no interval events; ongoign HTN w/o chest pain, sob, focal numbness/weakness; febrile again this am low grade to 37.8 Review of Systems 2 Review of Systems: All systems reviewed & are unremarkable except as noted in Subjective Physical Exam 2 Constitutional: well developed, well nourished, average body habitus, + altered mental status (? slight confusion) and cooperative; no acute distress Eyes: EOM intact bilaterally ENMT: Mouth: + dry oral mucous membranes Respiratory: normal respiratory effort and + tachypneic (slight); no respiratory distress and no cough Auscultation: + diminished lung sounds Cardiovascular: RRR, no murmur, no edema Gastrointestinal (Abdomen): Inspection/Auscultation: normal bowel sounds P ercussion/Palpation: abdomen soft; abdomen nontender Musculoskeletal: Extremities: strength 5/5 throughout Skin: no rashes, warm and dry (quite plethoric ) Psychiatric: Orientation: alert and oriented x 3 Results & Data Vital Signs (Past 12 Hours) Vital Signs Temp Pulse Pulse Resp BP Pulse Ox O2 Del Method 04/01/24 11:07 37.8 C H 71 19 159/81 H 93 Room Air 04/01/24 11:04 66 04/01/24 07:54 36.9 C 71 20 188/84 H 93 Room Air 04/01/24 03:10 37.1 C 63 18 177/84 H 94 Room Air Laboratory Results 04/01/24 05:28 04/01/24 05:28
--- NOTE | 2024-04-01 13:41 | Cardiology Progress Note ---
Date of Service April 01, 2024 Assessment & Plan (1) Streptococcus pneumoniae meningitis: (2) YOSEPH (acute kidney injury): (3) HTN, goal below 130/80: (4) Dyslipidemia, goal LDL below 70: (5) Coronary atherosclerosis: (6) Ascending aorta dilatation: (7) NSVT (nonsustained ventricular tachycardia): Plan Patient without any signs or symptoms suggestive of angina. Repeat EKG performed 03/30/2024 at 1611 and interpreted independently revealed sinus rhythm at 69 bpm with left ventricular hypertrophy pattern, age-indeterminate septal infarction pattern cannot be excluded, pattern suggestive of possible preexcitation. Stable findings. Blood pressure much improved. Nephrology input noted and appreciated. Telemetry revealed a 12 beat run of wide-complex tachycardia consistent with nonsustained ventricular tachycardia on 03/31/2024 at 2225 with spontaneous conversion to sinus rhythm. A 7 beat run of wide-complex tachycardia consistent with nonsustained ventricular tachycardia was observed on 04/01/2024 at 12:26 AM with spontaneous conversion to sinus rhythm. Continue with labetalol. Dose titrated earlier today. Patient has received potassium supplementation. I had a discussion with the patient that given his findings of coronary calcification on CT and underlying coronary risk factors that future considerations include low-dose aspirin and starting a statin agent for preventative purposes. Patient expressed that his goal is to be on as few medications as possible and he left me with the impression that adherence is likely going to be an issue with regards to the regimen that he is already on and that he is not interested in adding additional medications at this time. --Recommend ongoing treatment of infection and hypertension. Continue monitoring telemetry to exclude further arrhythmias. Cardiology to follow peripherally. Please call with questions or concerns. Admission and Anticipated Discharge Date Admission Date: March 27, 2024 Subjective Patient seen in cardiology follow-up. No subjective complaints. Denies chest pain, shortness of breath, or subjective palpitations. Denies subjective sensation of fever but his temperature was elevated at 37.8 at time of most recent vital signs at 11:07 AM. Physical Exam Physical Exam: General: no acute distress and stated age Eyes: conjunctiva are pink and non-injected, sclera clear Neck: normal jugular venous pulse, no hepatojugular reflux Chest: normal shape and normal respiratory effort Lungs: clear to auscultation and percussion Cardiac Exam: - regular heart sounds, no murmurs, rubs, or gallops, no jugular venous distention Abdomen: abdomen soft, non-tender, no abnormal masses and no hepatosplenomegaly Musculoskeletal: no gait disturbance, no weakness Extremities: no edema and no cyanosis Neuro:awake, conversant, follows commands, no focal motor deficits Results & Data Vital Signs (Past 12 Hours) Vital Signs Temp Pulse Pulse Resp BP Pulse Ox O2 Del Method 04/01/24 11:07 37.8 C H 71 19 159/81 H 93 Room Air 04/01/24 11:04 66 04/01/24 07:54 36.9 C 71 20 188/84 H 93 Room Air 04/01/24 03:10 37.1 C 63 18 177/84 H 94 Room Air
[2024-04-01 14:02] LABS: EBV DNA Quant PCR Not Detected copies/mL; EBV DNA Quant Source CSF
--- NOTE | 2024-04-01 14:49 | Hospitalist Progress Note ---
Date of Service April 01, 2024 Assessment & Plan (1) Sepsis: (2) Altered mental status: Plan 73-year-old male with history of hypertension on lisinopril, chronic kidney disease, presenting with fever and confusion which started the day prior to admission. Currently being treated for acute bacterial meningitis with chronic otomastoiditis, YOSEPH and Elevated troponin levels. Sepsis Acute bacterial meningitis Chronic Otomastoiditis Presents with Fever, confusion, neck rigidity on exam LP noting strep pneumoniae meningitis CT head noting chronic otomastoiditis MRI brain pending- chronic small vessel changes with tiny infarct left centrum semioval and no acute infarction CT temporal bones pending per the request of ENT as soon as possible- no evidence of any fracture Blood cx NGTD CSF cultures pending Neurology consulted, appreciate recs ID consulted, appreciate further rec Originally on daptomycin, ceftriaxone, ampicillin, Decadron, acyclovir-all renally dosed in light of acute renal failure Currently on IV Rocephin and Vancomycin (being renally dosed) with Decadron per ID recs Antibiotic has been changed to intravenous ceftriaxone 2 g every 12 hours Further recommendation is pending CSF and blood cultures are negative and culture from the middle ear is pending Discussed with the ID specialist and advised to wait for food sensitivity report before changing any antibiotic The middle ear fluid is growing pinpoint growth and the sensitivity is not back yet Will continue current antibiotic as per recommendation from the ID Will decrease dexamethasone to every 12 hours and then likely discontinue in a day or 2 Possible left otitis media versus mastoiditis Noted on head CT Antibiotics per above ID consult as above ENT consult as above -requesting CT temporal bone, NPO after midnight for placement of an ear tube in the OR on 03/30/24 Appreciate ENT input and recommendation- status post left Myringotomy Culture from the middle ear fluid is pending-pinpoint growth and reintubating Hypertension Hold lisinopril in light of acute kidney injury and marginal blood pressure Blood pressure has improved significantly with systolic sometimes greater than 180 Started on amlodipine 2.5 mg twice daily, as needed hydralazine 5 mg for SBP greater than 180 Blood pressure seems to be elevated Nephrology is titrating the blood pressure medications Blood pressure is not yet maintained Acute renal failure, on CKD Likely prerenal secondary to poor oral intake and ATN from sepsis As per , the patient was told that he has some kidney disease in the past Creatinine currently 2.8 UA: Positive +[address] abdomen pelvis: Showing bilateral renal scarring IV NSS ordered Appreciate nephrology input and recommendation Troponin elevation Demand Ischemia Likely secondary to YOSEPH Troponin 74.9, 92.1, 103.9 to 78.2 No cardiac symptoms EKG no signs of acute ischemia or infarct but abnormal Echocardiogram noting EF of 60 to 65%, no regional wall motion abnormalities, Grade 1 diastolic dysfunction, moderate aortic regurgitation, mild MR Appreciate cardiology input and recommendation Hypophosphatemia Replete as needed DVT prophylaxis: SCDs for now in light of lumbar tap Will start subcu heparin from today Full code Dispo: PT/OT to be ordered once more medically stable Discussed with the family members Admission and Anticipated Discharge Date Admission Date: March 27, 2024 Subjective 03/30/2024 The patient was seen and examined in telemetry unit in presence of the family members He has been feeling better but complains to have headache following status post left Miringotomy He denies any nausea no vomiting, no photophobia and no fever and or chills 03/31/2024 The patient was seen and examined in telemetry unit in presence of the family members He has been feeling much better and denies any significant symptoms His headache has improved, no back pain, no pain in the ears and does not have any fever and or chills 04/01/2024 The patient was seen and examined in telemetry unit in presence of the family members He has been feeling a lot better and denies any significant symptoms except minimal headache Remains afebrile and the white count is normal Blood pressure is not yet controlled Review of Systems Review of Systems: All systems reviewed and are unremarkable except as noted below Physical Exam Physical Exam: Lying in bed without any acute distress Constitutional: well developed, well nourished, + ill appearing and average body habitus Eyes: PERRL, conjunctivae normal, anicteric sclerae ENMT: external ear and nose normal, oropharynx normal Neck: trachea midline, no thyromegaly Respiratory: no respiratory distress Auscultation: lungs clear to auscultation bilaterally Cardiovascular: Rate/Rhythm: regular rate and regular rhythm; not tachycardic Heart Sounds: normal S1 and normal S2; no murmur Extremities: no edema Gastrointestinal (Abdomen): Inspection/Auscultation: normal bowel sounds; abdomen not distended Percussion/Palpation: abdomen soft; abdomen nontender Neurologic: normal touch/pain/proprioception and moves all extremities; no focal motor deficits Lymphatic: no cervical or axillary lymphadenopathy Results & Data Results & Data Vital Signs (Past 12 Hours) Vital Signs Temp Pulse Pulse Resp BP Pulse Ox O2 Del Method 04/01/24 13:58 71 04/01/24 11:07 37.8 C H 71 19 159/81 H 93 Room Air 04/01/24 11:04 66 04/01/24 07:54 36.9 C 71 20 188/84 H 93 Room Air 04/01/24 03:10 37.1 C 63 18 177/84 H 94 Room Air Laboratory Results Short CBC 04/01/24 Range/Units 05:28 WBC 9.36 (4.8-10.8) K/ul Hgb 12.1 L (14.0-18.0) g/dl Hct 35.3 L (42.0-52.0) % Plt Count 165 (130-400) K/uL BMP 04/01/24 05:28 Sodium 140 Potassium 3.4 L Chloride 106 Carbon Dioxide 24 BUN 50 H Creatinine 1.93 H Glucose 156 H Calcium 7.2 L Medications Administered Current Inpatient Medications Acetaminophen (Acetaminophen 325 Mg Tab) 650 mg PO Q4H PRN PRN Reason: Pain or Fever Stop: 04/26/24 21:26 Last Admin: 03/31/24 19:27 Dose: 650 mg Amlodipine Besylate (Amlodipine Besylate 5 Mg Tab) 5 mg PO BID DONNA Stop: 04/29/24 20:59 Last Admin: 04/01/24 08:33 Dose: 5 mg Atropine Sulfate (Atropine Sulfate 0.1 Mg/Ml 10ml Syr) 1 mg IV Q3M PRN PRN Reason: symptomatic bradycardia Stop: 04/26/24 22:39 Ciprofloxacin/Hydrocortisone (Cipro 0.2%/Hydrocortisone 1% Otic Susp 10 Ml Btl) 5 drops OTL BID DONNA Stop: 04/29/24 20:59 Last Admin: 04/01/24 08:28 Dose: 5 drops Heparin Sodium (Porcine) (Heparin Sod 5,000 Unit/0.5 Ml Vial) 5,000 units SQ Q12 DONNA Stop: 04/30/24 20:59 Last Admin: 04/01/24 09:58 Dose: 5,000 units Hydralazine HCl (Hydralazine Hcl 20 Mg/Ml Vial) 10 mg IV Q6H PRN PRN Reason: SBP >180 Stop: 04/28/24 12:23 Last Admin: 03/30/24 14:19 Dose: 10 mg Hydralazine HCl (Hydralazine Hcl 25 Mg Tab) 25 mg PO TID [facility] Stop: 04/29/24 15:14 Last Admin: 04/01/24 08:33 Dose: 25 mg Ceftriaxone Sodium (Rocephin) 2,000 mg in 50 mls @ 100 mls/hr IV Q12H [facility] Stop: 04/07/24 04:59 Last Infusion: 04/01/24 05:01 Dose: Infused Pantoprazole Sodium (Protonix) 40 mg in 10 mls @ 5 mls/min IV DAILY [facility] Stop: 04/27/24 08:59 Last Admin: 04/01/24 08:29 Dose: 5 mls/min Promethazine HCl (Phenergan) 6.25 mg in 50.25 mls @ 201 mls/hr IV Q6H PRN PRN Reason: Nausea And Vomiting Stop: 04/30/24 05:03 Dexamethasone 10 mg/ Syringe 2.5 mls @ 1 mls/min IV Q12H [facility] Stop: 05/01/24 13:59 Labetalol HCl (Labetalol Hcl 100 Mg Tab) 100 mg PO BID [facility] Stop: 04/29/24 20:59 Last Admin: 04/01/24 08:33 Dose: 100 mg Labetalol HCl (Labetalol Hcl Iv 5 Mg/Ml 20ml) 5 mg IV Q4H PRN PRN Reason: Hypertension Stop: 04/29/24 15:01 Labetalol HCl (Labetalol Hcl 200 Mg Tab) 200 mg PO BID [facility] Stop: 05/01/24 20:59 Lisinopril (Lisinopril 20 Mg Tab) 20 mg PO HS [facility] Stop: 04/29/24 20:59 Miscellaneous Information (Vancomycin Consult Active) 1 each N/A UD PRN PRN Reason: Consult Stop: 04/28/24 12:25 Potassium Chloride (Potassium Chloride Crtab 20 Meq Tabcr) 20 meq PO QAM [facility] Stop: 05/01/24 09:14 Last Admin: 04/01/24 09:58 Dose: 20 meq Potassium Phosphate (Pot Phosphate Monobasic W/ Sod Tab) 2 tab PO QID [facility] Stop: 04/28/24 08:59 Last Admin: 04/01/24 08:33 Dose: 2 tab Triamterene/Hydrochlorothiazide (Triamterene/Hctz 37.5/25mg Tab) 0.5 tab PO QAM [facility] Stop: 05/01/24 09:14 Last Admin: 04/01/24 09:52 Dose: 0.5 tab
[2024-04-01] MEDS: dexAMETHasone 10 MG in SYRINGE 0 ML IV SCH (15:02)
[2024-04-01] MEDS: lisinopril 20 MG TAB PO SCH (19:50)
[2024-04-01] MEDS: LABETALOL HCL 200 MG TAB PO SCH (21:55)
--- NOTE | 2024-04-01 22:22 | Electrocardiogram Report ---
Test Reason : Blood Pressure : */* mmHG Vent. Rate : 69 BPM Atrial Rate : 69 BPM P-R Int : 132 ms QRS Dur : 122 ms QT Int : 420 ms P-R-T Axes : 59 38 -25 degrees QTcB Int : 450 ms Normal sinus rhythm Left ventricular hypertrophy with QRS widening and repolarization abnormality ( Sokolow-Fallon , Danial l product ) Anteroseptal infarct (cited on or before 27-Mar-2024) Possible ventricular pre-excitation Abnormal ECG When compared with ECG of 27-Mar-2024 16:15, No significant change was found Confirmed by Ry Zaidi ([id number]) on 04/01/2024 10:22:40 PM Referred By: REFERRED SELF Confirmed By: Ry Zaidi
[2024-04-01 23:17] LABS: Babesia microti DNA Not Detected (Not Detected); Q Fever IgG, Phase I POSITIVE; Q Fever Phase I IgM Antibody NEGATIVE; Q Fever Phase II IgG Antibody POSITIVE; Q Fever Phase II IgM Antibody NEGATIVE; R. typhi IgG Ab NOT DETECTED; R. typhi IgM Ab NOT DETECTED; RMSF IgG Ab NOT DETECTED; RMSF IgM Ab NOT DETECTED
[2024-04-02 06:22] LABS: Hematocrit (blood only) 38.7 % (42.0-52.0); Hemoglobin 12.9 g/dl (14.0-18.0); Mean Corpuscular Hemoglobin 29.5 pg (25.0-34.0); Mean Corpuscular Hgb Conc 33.3 g/dL (32.0-36.0); Mean Corpuscular Volume 88.4 fL (80.0-100.0); Mean Platelet Volume 9.7 fL (9.4-12.4); Nucleated RBC # (auto) 0.02 K/uL (0.00-0.12); Nucleated RBC % (auto) 0.2 %; Platelet Count 206 K/uL (130-400); RDW Standard Deviation 45.2 fL (36.4-46.3); Red Blood Count 4.38 M/uL (4.70-6.10); White Blood Count 11.98 K/ul (4.8-10.8)
[2024-04-02 06:33] LABS: BUN Creatinine Ratio 28.9 (10-20); Calcium 7.3 mg/dl (8.6-10.3); Creatinine Clr Calc Pharmacy 31.2 ml/min; Potassium 3.7 mmol/L (3.5-5.1)
[2024-04-02 06:51] LABS: Basophils # (auto) 0.07 K/uL (0.00-0.20); Basophils % (auto) 0.6 %; Eosinophils # (auto) 0.04 K/uL (0.00-0.50); Eosinophils % (auto) 0.3 %; Immature Granulocytes # (auto) 1.16 K/uL (0.01-0.20); Immature Granulocytes % (auto) 9.7 %; Lymphocytes % (auto) 7.5 %; Monocytes # (auto) 0.61 K/uL (0.11-0.59); Monocytes % (auto) 5.1 %; Neutrophils % (auto) 76.8 %
--- NOTE | 2024-04-02 11:10 | Pharmacy Report ---
Pharmacy PK ABX Note - Date of Service April 02, 2024 - Assessment and Plan Assessment 04/02 * Day #5 vancomycin, day #6 ceftriaxone * Pin point growth on middle ear fluid culture * Renal function seems to have plateau- will dose x 1 again today, consider scheduling if SCr remains same tomorrow 04/01 * Day #4 Vancomycin and Day #6 ceftriaxone for treatment of meningitis * Middle ear fluid culture still pending * Renal function slightly improved today, unclear baseline serum creatinine, will continue to dose vancomycin per levels. 03/31: * Day #3 Vancomycin and Day #5 ceftriaxone for treatment of meningitis * Gram stain for middle ear fluid with rare GPCs and few gram pos bacilli, continue vancomycin at least until C/S resulted per Dr. Mulligan * Renal function neither worsened or improved from yesterday, will continue to dose per levels 03/30: * Day #2 Vancomycin and Day #4 ceftriaxone for treatment of meningitis. * Strep pneumoniae positive in CSF biofire. No growth in CSF bacterial culture to date. * Underwent myringotomy this AM. Culture from middle ear fluid was sent and is pending. Possible CSF leak per ENT note. 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 Was given a dose of Gentamicin for this. Discussed with attending this AM and agr eed that antimicrobial treatment for this stool bacteria is unnecessary given lack of moderate-severe symptoms. Will treat supportively. Notified Nephrology of Gentamicin dose given YOSEPH and risk of concomitant nephrotoxicity with Vancomycin. * Leukocytosis improved, 10.4k today. SCr continues to trend downward, 2.10 mg/dL this AM. Awaiting growth in CSF or ear culture to narrow abx further. Of note, according to [facility]'s most recent antibiogram, 91% of meningitic S. pneumoniae isolates were sensitive to Ceftriaxone. 03/29: 73 year old M receiving Vancomycin and Ceftriaxone for treatment of meningitis. * Day #3 of ceftriaxone and Day #1 of Vancomycin. Patient previously on Daptomycin, Ampicillin, and Acyclovir from 03/27-03/29 as well. * CSF PCR is positive for Streptococcus pneumoniae. ID consulted and recommends Vanc + Ceftriaxone until sensitivities return. * 24-hr Tmax of 38.5oC. Leukocytosis improving, 15k today. SCr slightly improved to 2.31 mg/dL this AM (CrCl 27 mL/min). Plan Vancomycin * Received 1250 mg x1 on 04/01 * Random level this AM 15.4 mcg/mL- will redose today * Continue to dose per level for now. Will give 1250 mg IV x 1 again today. * 1250 mg q24H is predicting AUC 595 mg/L.hr at steady state, consider scheduling if renal function remains similar * Repeat random level ordered for: 04/03/24 Ceftriaxone * 2000 mg IV every 12 hours Pharmacy will continue to follow and will adjust dose/frequency as necessary. Thank you. Pharmacy has transitioned to AUC monitoring for vancomycin. AUC/VERONIQUE is the preferred PK/PD target and is associated with decreased risk of nephrotoxicity compared to traditional trough targets.
--- NOTE | 2024-04-02 12:55 | Nephrology Progress Note ---
Date of Service April 02, 2024 Assessment & Plan (1) HTN (hypertension): Plan: severe HTN in setting of ongoing obligate dexamethasone. sbp 160-170s since admission; 170-180s yesterday in setting of fever, steroids. no sx. -would not eval for nephrotic syndrome yet as we have good reasons above for HTN; do note though while not nephrotic on exam, serum albumin 3.0, though he presents in setting of illness goal is SBP in 150s -started on tid hydralazine 10 mg on 03/29 > increased to 25 mg tid 03/31 (hold for sbp <140 for now; so ordered) -continue hydralazine 10mg IV q6 prn sbp >180 and labetalol 5 mg IV q4h prn sbp > 180 if can't have hydralazine ->>Continue on labetalol 100>200 mg bid, lisinopril 20 mg daily, hctz/trimaterene 1/2 tab of 25 mg hctz dose and amlodipine 10 mg daily >_ keep k >4 and Magnesium >2 -cont daily BMP ordered ARR-- awaited >>check orthostatics Care coordinated w/ Dr Mulligan (2) YOSEPH (acute kidney injury): Plan: resolved nonoliguric Stage 1 YOSEPH on CKD 3B, unknown proteinuria status, baseline creatinine 2.1 as far as we know. presented w/ creatinine 2.8; down to 1.9 today. still at significant risk for worsening renal function w/ ongoing fever, vanco/gent dosing, labile and often severe HTN. - Reanlly dose abx, on Ceftriaxone and Vancomycin,defer to ID/primary service if further gent needed -daily bmp -continue avoidance of nsaids, nephrotoxins unless life/limb saving -cont strict I/O-- ( Void recorded, not actual quantity) (3) CKD (chronic kidney disease) stage 3, GFR 30-59 ml/min: Plan: CKD 3B w/ presumptove baseline 2.1, eGFR 33 >spot prot/creat as OP or here if HTN persists w/o cause -BP control will be crucial as OP; did explain this (4) Streptococcus pneumoniae meningitis: Plan: on vanco and ceftriaxone; hopefully can stop vanco soon pending sensitivities concern for CSF leak to be repaired/evaluated as OP Admission and Anticipated Discharge Date Admission Date: March 27, 2024 Subjective The patient was seen and examin He has been feeling a lot better and denies any significant symptoms except minimal headache Remains afebrile and the white count is normal Blood pressure improved. Review of Systems 2 Review of Systems: All systems reviewed & are unremarkable except as noted in HPI & below Results & Data Vital Signs (Past 12 Hours) Vital Signs Temp Pulse Pulse Resp BP Pulse Ox O2 Del Method 04/02/24 10:24 36.4 C L 64 16 149/81 H 93 Room Air 04/02/24 09:00 Room Air 04/02/24 09:00 72 04/02/24 07:10 36.6 C 62 18 156/76 H 91 Room Air 04/02/24 02:46 37.5 C 63 18 145/78 H 95 Room Air Laboratory Results 04/02/24 05:54 04/02/24 05:54
[2024-04-02] MEDS: VANCOMYCIN HCL 1,250 MG in SODIUM CHLORIDE 0.9% 250 ML IV ONE (13:32)
--- NOTE | 2024-04-02 14:01 | Hospitalist Progress Note ---
Date of Service April 02, 2024 Assessment & Plan (1) Sepsis: (2) Altered mental status: Plan 73-year-old male with history of hypertension on lisinopril, chronic kidney disease, presenting with fever and confusion which started the day prior to admission. Currently being treated for acute bacterial meningitis with chronic otomastoiditis, YOSEPH and Elevated troponin levels. Sepsis Acute bacterial meningitis Chronic Otomastoiditis Presents with Fever, confusion, neck rigidity on exam LP noting strep pneumoniae meningitis CT head noting chronic otomastoiditis MRI brain pending- chronic small vessel changes with tiny infarct left centrum semioval and no acute infarction CT temporal bones pending per the request of ENT as soon as possible- no evidence of any fracture Blood cx NGTD CSF cultures pending Neurology consulted, appreciate recs ID consulted, appreciate further rec Originally on daptomycin, ceftriaxone, ampicillin, Decadron, acyclovir-all renally dosed in light of acute renal failure Currently on IV Rocephin and Vancomycin (being renally dosed) with Decadron per ID recs Antibiotic has been changed to intravenous ceftriaxone 2 g every 12 hours Further recommendation is pending CSF and blood cultures are negative and culture from the middle ear is pending Discussed with the ID specialist and advised to wait for food sensitivity report before changing any antibiotic The middle ear fluid is growing pinpoint growth and the sensitivity is not back yet Will continue current antibiotic as per recommendation from the ID Will decrease dexamethasone to every 12 hours and then likely discontinue in a day or 2 Discontinue dexamethasone on today He has been feeling much better and denies any significant symptoms Will get PT and OT evaluation Possible left otitis media versus mastoiditis Noted on head CT Antibiotics per above ID consult as above ENT consult as above -requesting CT temporal bone, NPO after midnight for placement of an ear tube in the OR on 03/30/24 Appreciate ENT input and recommendation- status post left Myringotomy Culture from the middle ear fluid is pending-pinpoint growth and reintubating The middle ear fluid is growing scant normal skin antonio but is still reintubating Likely discharge on Thursday Hypertension Hold lisinopril in light of acute kidney injury and marginal blood pressure Blood pressure has improved significantly with systolic sometimes greater than 180 Started on amlodipine 2.5 mg twice daily, as needed hydralazine 5 mg for SBP greater than 180 Blood pressure seems to be elevated Nephrology is titrating the blood pressure medications Blood pressure is maintained Acute renal failure, on CKD Likely prerenal secondary to poor oral intake and ATN from sepsis As per , the patient was told that he has some kidney disease in the past Creatinine currently 2.8 UA: Positive +[address] abdomen pelvis: Showing bilateral renal scarring IV NSS ordered Appreciate nephrology input and recommendation Kidney function remains stable Troponin elevation Demand Ischemia Likely secondary to YOSEPH Troponin 74.9, 92.1, 103.9 to 78.2 No cardiac symptoms EKG no signs of acute ischemia or infarct but abnormal Echocardiogram noting EF of 60 to 65%, no regional wall motion abnormalities, Grade 1 diastolic dysfunction, moderate aortic regurgitation, mild MR Appreciate cardiology input and recommendation Hypophosphatemia Replete as needed DVT prophylaxis: SCDs for now in light of lumbar tap Will start subcu heparin from today Full code Dispo: PT/OT to be ordered once more medically stable Discussed with the family members Admission and Anticipated Discharge Date Admission Date: March 27, 2024 Subjective 03/30/2024 The patient was seen and examined in telemetry unit in presence of the family members He has been feeling better but complains to have headache following status post left Miringotomy He denies any nausea no vomiting, no photophobia and no fever and or chills 03/31/2024 The patient was seen and examined in telemetry unit in presence of the family members He has been feeling much better and denies any significant symptoms His headache has improved, no back pain, no pain in the ears and does not have any fever and or chills 04/01/2024 The patient was seen and examined in telemetry unit in presence of the family members He has been feeling a lot better and denies any significant symptoms except minimal headache Remains afebrile and the white count is normal Blood pressure is not yet controlled 04/02/2024 The patient was seen and examined in telemetry unit in presence of the family members She has been feeling much better and denies any significant symptoms except very minimal headache No drainage from the left ear and no pain in the middle ear No fever chills, no photophobia no shortness of breath Review of Systems Review of Systems: All systems reviewed and are unremarkable except as noted below Physical Exam Physical Exam: Lying in bed without any acute distress Constitutional: well developed, well nourished, + ill appearing and average body habitus Eyes: PERRL, conjunctivae normal, anicteric sclerae ENMT: external ear and nose normal, oropharynx normal Neck: trachea midline, no thyromegaly Respiratory: no respiratory distress Auscultation: lungs clear to auscultation bilaterally Cardiovascular: Rate/Rhythm: regular rate and regular rhythm; not tachycardic Heart Sounds: normal S1 and normal S2; no murmur Extremities: no edema Gastrointestinal (Abdomen): Inspection/Auscultation: normal bowel sounds; abdomen not distended Percussion/Palpation: abdomen soft; abdomen nontender Musculoskeletal: No acute arthritis involving any of the joint Neurologic: normal touch/pain/proprioception and moves all extremities; no focal motor deficits Lymphatic: no cervical or axillary lymphadenopathy Results & Data Results & Data Vital Signs (Past 12 Hours) Vital Signs Temp Pulse Pulse Resp BP Pulse Ox O2 Del Method 04/02/24 13:47 36.3 C L 62 18 143/72 H 94 Room Air 04/02/24 10:24 36.4 C L 64 16 149/81 H 93 Room Air 04/02/24 09:00 Room Air 04/02/24 09:00 72 04/02/24 07:10 36.6 C 62 18 156/76 H 91 Room Air 04/02/24 02:46 37.5 C 63 18 145/78 H 95 Room Air Laboratory Results Short CBC 04/02/24 Range/Units 05:54 WBC 11.98 H (4.8-10.8) K/ul Hgb 12.9 L (14.0-18.0) g/dl Hct 38.7 L (42.0-52.0) % Plt Count 206 (130-400) K/uL BMP 04/02/24 05:54 Sodium 139 Potassium 3.7 Chloride 105 Carbon Dioxide 22 BUN 57 H Creatinine 1.97 H Glucose 139 H Calcium 7.3 L Medications Administered Current Inpatient Medications Acetaminophen (Acetaminophen 325 Mg Tab) 650 mg PO Q4H PRN PRN Reason: Pain or Fever Stop: 04/26/24 21:26 Last Admin: 03/31/24 19:27 Dose: 650 mg Amlodipine Besylate (Amlodipine Besylate 5 Mg Tab) 5 mg PO BID [facility] Stop: 04/29/24 20:59 Last Admin: 04/02/24 09:29 Dose: 5 mg Atropine Sulfate (Atropine Sulfate 0.1 Mg/Ml 10ml Syr) 1 mg IV Q3M PRN PRN Reason: symptomatic bradycardia Stop: 04/26/24 22:39 Ciprofloxacin/Hydrocortisone (Cipro 0.2%/Hydrocortisone 1% Otic Susp 10 Ml Btl) 5 drops OTL BID [facility] Stop: 04/29/24 20:59 Last Admin: 04/02/24 09:29 Dose: 5 drops Heparin Sodium (Porcine) (Heparin Sod 5,000 Unit/0.5 Ml Vial) 5,000 units SQ Q12 DONNA Stop: 04/30/24 20:59 Last Admin: 04/02/24 09:29 Dose: 5,000 units Hydralazine HCl (Hydralazine Hcl 20 Mg/Ml Vial) 10 mg IV Q6H PRN PRN Reason: SBP >180 Stop: 04/28/24 12:23 Last Admin: 03/30/24 14:19 Dose: 10 mg Hydralazine HCl (Hydralazine Hcl 25 Mg Tab) 25 mg PO TID DONNA Stop: 04/29/24 15:14 Last Admin: 04/02/24 13:39 Dose: 25 mg Ceftriaxone Sodium (Rocephin) 2,000 mg in 50 mls @ 100 mls/hr IV Q12H DON[facility] Stop: 04/07/24 04:59 Last Infusion: 04/02/24 07:29 Dose: Infused Pantoprazole Sodium (Protonix) 40 mg in 10 mls @ 5 mls/min IV DAILY [facility] Stop: 04/27/24 08:59 Last Admin: 04/02/24 09:30 Dose: 5 mls/min Promethazine HCl (Phenergan) 6.25 mg in 50.25 mls @ 201 mls/hr IV Q6H PRN PRN Reason: Nausea And Vomiting Stop: 04/30/24 05:03 Dexamethasone 10 mg/ Syringe 2.5 mls @ 1 mls/min IV Q12H DONNA Stop: 05/01/24 13:59 Last Admin: 04/02/24 13:31 Dose: 1 mls/min Labetalol HCl (Labetalol Hcl Iv 5 Mg/Ml 20ml) 5 mg IV Q4H PRN PRN Reason: Hypertension Stop: 04/29/24 15:01 Labetalol HCl (Labetalol Hcl 200 Mg Tab) 200 mg PO BID [facility] Stop: 05/01/24 20:59 Last Admin: 04/02/24 09:30 Dose: 200 mg Lisinopril (Lisinopril 20 Mg Tab) 20 mg PO HS [facility] Stop: 04/29/24 20:59 Last Admin: 04/01/24 19:50 Dose: 20 mg Miscellaneous Information (Vancomycin Consult Active) 1 each N/A UD PRN PRN Reason: Consult Stop: 04/28/24 12:25 Potassium Chloride (Potassium Chloride Crtab 20 Meq Tabcr) 20 meq PO QAM [facility] Stop: 05/01/24 09:14 Last Admin: 04/02/24 09:31 Dose: 20 meq Potassium Phosphate (Pot Phosphate Monobasic W/ Sod Tab) 2 tab PO QID [facility] Stop: 04/28/24 08:59 Last Admin: 04/02/24 13:31 Dose: 2 tab Triamterene/Hydrochlorothiazide (Triamterene/Hctz 37.5/25mg Tab) 0.5 tab PO QAM [facility] Stop: 05/01/24 09:14 Last Admin: 04/02/24 09:31 Dose: 0.5 tab
[2024-04-02] MEDS: ADVANCED PROBIOTIC 625 MG CAPSULE PO STA (22:30)
[2024-04-03] MEDS: ADVANCED PROBIOTIC 625 MG CAPSULE PO SCH (08:27)
[2024-04-03 08:33] LABS: Creatinine Clr Calc Pharmacy 30.2 ml/min
[2024-04-03] MEDS ORDERED: SACCHAROMYCES BOULARDII 250 MG CAP PO SCH (09:00)
--- NOTE | 2024-04-03 10:09 | Pharmacy Report ---
Pharmacy PK ABX Note - Date of Service April 03, 2024 - Assessment and Plan Assessment 04/03 * Random level 17.8 mcg/mL today * middle ear culture still pending * SCr 2.04 today- will schedule further doses 04/02 * Day #5 vancomycin, day #6 ceftriaxone * Pin point growth on middle ear fluid culture * Renal function seems to have plateau- will dose x 1 again today, consider scheduling if SCr remains same tomorrow 04/01 * Day #4 Vancomycin and Day #6 ceftriaxone for treatment of meningitis * Middle ear fluid culture still pending * Renal function slightly improved today, unclear baseline serum creatinine, will continue to dose vancomycin per levels. 03/31: * Day #3 Vancomycin and Day #5 ceftriaxone for treatment of meningitis * Gram stain for middle ear fluid with rare GPCs and few gram pos bacilli, continue vancomycin at least until C/S resulted per Dr. Mulligan * Renal function neither worsened or improved from yesterday, will continue to dose per levels 03/30: * Day #2 Vancomycin and Day #4 ceftriaxone for treatment of meningitis. * Strep pneumoniae positive in CSF biofire. No growth in CSF bacterial culture to date. * Underwent myringotomy this AM. Culture from middle ear fluid was sent and is pending. Possible CSF leak per ENT note. 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 Was given a dose of Gentamicin for this. Discussed with attending this AM and agreed that antimicrobial treatment for this stool bacteria is unnecessary given lack of moderate-severe symptoms. Will treat supportively. Notified Nephrology of Gentamicin dose given YOSEPH and risk of concomitant nephrotoxicity with Vancomycin. * Leukocytosis improved, 10.4k today. SCr continues to trend downward, 2.10 mg/dL this AM. Awaiting growth in CSF or ear culture to narrow abx further. Of note, according to [facility]'s most recent antibiogram, 91% of meningitic S. pneumoniae isolates were sensitive to Ceftriaxone. 03/29: 73 year old M receiving Vancomycin and Ceftriaxone for treatment of meningitis. * Day #3 of ceftriaxone and Day #1 of Vancomycin. Patient previously on Daptom ycin, Ampicillin, and Acyclovir from 03/27-03/29 as well. * CSF PCR is positive for Streptococcus pneumoniae. ID consulted and recommends Vanc + Ceftriaxone until sensitivities return. * 24-hr Tmax of 38.5oC. Leukocytosis improving, 15k today. SCr slightly improved to 2.31 mg/dL this AM (CrCl 27 mL/min). Plan Vancomycin * Received 1250 mg x1 on 04/02 * Random level this AM 17.8 mcg/mL * Start 1000 mg q24H which predicts an AUC24,48 of 511 mg/L.hr * Random level in 2 days if continues or sooner with renal function changes Ceftriaxone * 2000 mg IV every 12 hours Pharmacy will continue to follow and will adjust dose/frequency as necessary. Thank you. Pharmacy has transitioned to AUC monitoring for vancomycin. AUC/VERONIQUE is the preferred PK/PD target and is associated with decreased risk of nephrotoxicity compared to traditional trough targets.
[2024-04-03] MEDS: VANCOMYCIN HCL 1,000 MG/270 ML BAG IV SCH (10:43)
--- NOTE | 2024-04-03 13:18 | Hospitalist Progress Note ---
Date of Service April 03, 2024 Assessment & Plan (1) Sepsis: Plan: From catheter (2) Altered mental status: Plan 73-year-old male with history of hypertension on lisinopril, chronic kidney disease, presenting with fever and confusion which started the day prior to admission. Currently being treated for acute bacterial meningitis with chronic otomastoiditis, YOSEPH and Elevated troponin levels. Sepsis Acute bacterial meningitis Chronic Otomastoiditis Presents with Fever, confusion, neck rigidity on exam LP noting strep pneumoniae meningitis CT head noting chronic otomastoiditis MRI brain pending- chronic small vessel changes with tiny infarct left centrum semioval and no acute infarction CT temporal bones pending per the request of ENT as soon as possible- no evidence of any fracture Blood cx NGTD CSF cultures pending Neurology consulted, appreciate recs ID consulted, appreciate further rec Originally on daptomycin, ceftriaxone, ampicillin, Decadron, acyclovir-all renally dosed in light of acute renal failure Currently on IV Rocephin and Vancomycin (being renally dosed) with Decadron per ID recs Antibiotic has been changed to intravenous ceftriaxone 2 g every 12 hours CSF and blood cultures are negative and culture from the middle ear is pending Discussed with the ID specialist and advised to wait for food sensitivity report before changing any antibiotic The middle ear fluid is growing pinpoint growth and the sensitivity is not back yet Will continue current antibiotic as per recommendation from the ID Will decrease dexamethasone to every 12 hours and then likely discontinue in a day or 2 Discontinue dexamethasone on 04/02/2024 He has been feeling much better and denies any significant symptoms Final ID recommendation depending on middle ear fluid culture and sensitivity- Pending as of now 04/03/2023-Dr Deal ,ID in [place] Texted on 04/02/2024 [facility] Possible left otitis media versus mastoiditis Noted on head CT Antibiotics per above ID consult as above ENT consult as above -requesting CT temporal bone, NPO after midnight for placement of an ear tube in the OR on 03/30/24 Appreciate ENT input and recommendation- status post left Myringotomy Culture from the middle ear fluid is pending-pinpoint growth and reintubating The middle ear fluid is growing scant normal skin antonio but is still reintubating Noted to have possible defect in the tegmen of temporal bone but CT of the temporal bone did not notice any fracture The patient is not having any discharge from middle ear on the left side. The ENT surgeon advised to have an outpatient appointment with ENT specialist in [place] and the doctors will be either Gal Dumont or Donald Madrid can help Hypertension Hold lisinopril in light of acute kidney injury and marginal blood pressure Blood pressure has improved significantly with systolic sometimes greater than 180 Started on amlodipine 2.5 mg twice daily, as needed hydralazine 5 mg for SBP greater than 180 Blood pressure seems to be elevated Nephrology is titrating the blood pressure medications Blood pressure is maintained and the medications are updated Acute renal failure, on CKD Likely prerenal secondary to poor oral intake and ATN from sepsis As per , the patient was told that he has some kidney disease in the past Creatinine currently 2.8 UA: Positive +[address] abdomen pelvis: Showing bilateral renal scarring IV NSS ordered Appreciate nephrology input and recommendation Kidney function remains stable Troponin elevation Demand Ischemia Likely secondary to YOSEPH Troponin 74.9, 92.1, 103.9 to 78.2 No cardiac symptoms EKG no signs of acute ischemia or infarct but abnormal Echocardiogram noting EF of 60 to 65%, no regional wall motion abnormalities, Grade 1 diastolic dysfunction, moderate aortic regurgitation, mild MR Appreciate cardiology input and recommendation Hypophosphatemia Replete as needed DVT prophylaxis: SCDs for now in light of lumbar tap Will start subcu heparin from today Full code Dispo: PT/OT to be ordered once more medically stable Discussed with the family members Admission and Anticipated Discharge Date Admission Date: March 27, 2024 Subjective 03/30/2024 The patient was seen and examined in telemetry unit in presence of the family members He has been feeling better but complains to have headache following status post left Miringotomy He denies any nausea no vomiting, no photophobia and no fever and or chills 03/31/2024 The patient was seen and examined in telemetry unit in presence of the family members He has been feeling much better and denies any significant symptoms His headache has improved, no back pain, no pain in the ears and does not have any fever and or chills 04/01/2024 The patient was seen and examined in telemetry unit in presence of the family members He has been feeling a lot better and denies any significant symptoms except minimal headache Remains afebrile and the white count is normal Blood pressure is not yet controlled 04/02/2024 The patient was seen and examined in telemetry unit in presence of the family members She has been feeling much better and denies any significant symptoms except very minimal headache No drainage from the left ear and no pain in the middle ear No fever chills, no photophobia no shortness of breath 04/03/2024 Patient was seen and examined in telemetry unit in presence of the family members He has been hemodynamically stable and denies any more headache or any drainage from the left ear Remains afebrile and wants to go home Still waiting for final culture and sensitivity from the middle ear fluid Review of Systems Review of Systems: All systems reviewed and are unremarkable except as noted below Physical Exam Physical Exam: Lying in bed without any acute distress Constitutional: well developed, well nourished, + ill appearing and average body habitus Eyes: PERRL, conjunctivae normal, anicteric sclerae ENMT: external ear and nose normal, oropharynx normal Neck: trachea midline, no thyromegaly Respiratory: no respiratory distress Auscultation: lungs clear to auscultation bilaterally Cardiovascular: Rate/Rhythm: regular rate and regular rhythm; not tachycardic Heart Sounds: normal S1 and normal S2; no murmur Extremities: no edema Gastrointestinal (Abdomen): Inspection/Auscultation: normal bowel sounds; abdomen not distended Percussion/Palpation: abdomen soft; abdomen nontender Neurologic: normal touch/pain/proprioception and moves all extremities; no focal motor deficits Lymphatic: no cervical or axillary lymphadenopathy Results & Data Results & Data Vital Signs (Past 12 Hours) Vital Signs Temp Pulse Pulse Resp BP Pulse Ox O2 Del Method 04/03/24 11:41 36.3 C L 63 16 138/78 94 Room Air 04/03/24 08:00 Room Air 04/03/24 07:29 36.5 C 60 17 127/70 93 Room Air 04/03/24 07:00 67 04/03/24 02:48 36.4 C L 65 16 157/77 H 94 Room Air Laboratory Results [facility] 04/03/24 07:51 Creatinine 2.04 H Medications Administered Current Inpatient Medications Acetaminophen (Acetaminophen 325 Mg Tab) 650 mg PO Q4H PRN PRN Reason: Pain or Fever Stop: 04/26/24 21:26 Last Admin: 03/31/24 19:27 Dose: 650 mg Amlodipine Besylate (Amlodipine Besylate 5 Mg Tab) 5 mg PO BID [facility] Stop: 04/29/24 20:59 Last Admin: 04/03/24 08:27 Dose: 5 mg Atropine Sulfate (Atropine Sulfate 0.1 Mg/Ml 10ml Syr) 1 mg IV Q3M PRN PRN Reason: symptomatic bradycardia Stop: 04/26/24 22:39 Ciprofloxacin/Hydrocortisone (Cipro 0.2%/Hydrocortisone 1% Otic Susp 10 Ml Btl) 5 drops OTL BID [facility] Stop: 04/29/24 20:59 Last Admin: 04/03/24 08:27 Dose: 5 drops Heparin Sodium (Porcine) (Heparin Sod 5,000 Unit/0.5 Ml Vial) 5,000 units SQ Q12 DONAN Stop: 04/30/24 20:59 Last Admin: 04/03/24 08:41 Dose: 5,000 units Hydralazine HCl (Hydralazine Hcl 20 Mg/Ml Vial) 10 mg IV Q6H PRN PRN Reason: SBP >180 Stop: 04/28/24 12:23 Last Admin: 03/30/24 14:19 Dose: 10 mg Hydralazine HCl (Hydralazine Hcl 25 Mg Tab) 25 mg PO TID [facility] Stop: 04/29/24 15:14 Last Admin: 04/03/24 08:27 Dose: 25 mg Ceftriaxone Sodium (Rocephin) 2,000 mg in 50 mls @ 100 mls/hr IV Q12H [facility]NA Stop: 04/07/24 04:59 Last Infusion: 04/03/24 06:10 Dose: Infused Pantoprazole Sodium (Protonix) 40 mg in 10 mls @ 5 mls/min IV DAILY [facility] Stop: 04/27/24 08:59 Last Admin: 04/03/24 08:28 Dose: 5 mls/min Promethazine HCl (Phenergan) 6.25 mg in 50.25 mls @ 201 mls/hr IV Q6H PRN PRN Reason: Nausea And Vomiting Stop: 04/30/24 05:03 Vancomycin HCl (Vancomycin Hcl) 1,000 mg in 270 mls @ 200 mls/hr IV Q24H [facility] Stop: 04/13/24 10:59 Last Infusion: 04/03/24 12:04 Dose: Infused Labetalol HCl (Labetalol Hcl Iv 5 Mg/Ml 20ml) 5 mg IV Q4H PRN PRN Reason: Hypertension Stop: 04/29/24 15:01 Labetalol HCl (Labetalol Hcl 200 Mg Tab) 200 mg PO BID [facility] Stop: 05/01/24 20:59 Last Admin: 04/03/24 08:28 Dose: 200 mg Lactobacillus Acidophilus (Advanced Probiotic 625 Mg Capsule) 1,250 mg PO DAILY [facility] Stop: 05/03/24 08:59 Last Admin: 04/03/24 08:27 Dose: 1,250 mg Lisinopril (Lisinopril 20 Mg Tab) 20 mg PO HS [facility] Stop: 04/29/24 20:59 Last Admin: 04/02/24 22:30 Dose: 20 mg Miscellaneous Information (Vancomycin Consult Active) 1 each N/A UD PRN PRN Reason: Consult Stop: 04/28/24 12:25 Potassium Chloride (Potassium Chloride Crtab 20 Meq Tabcr) 20 meq PO QAM [facility] Stop: 05/01/24 09:14 Last Admin: 04/03/24 08:41 Dose: 20 meq Potassium Phosphate (Pot Phosphate Monobasic W/ Sod Tab) 2 tab PO QID [facility] Stop: 04/28/24 08:59 Last Admin: 04/03/24 12:36 Dose: 2 tab Triamterene/Hydrochlorothiazide (Triamterene/Hctz 37.5/25mg Tab) 0.5 tab PO QAM [facility] Stop: 05/01/24 09:14 Last Admin: 04/03/24 08:28 Dose: 0.5 tab
--- NOTE | 2024-04-04 09:57 | Nephrology Progress Note ---
Date of Service April 04, 2024 Assessment & Plan Admission and Anticipated Discharge Date Admission Date: March 27, 2024 Subjective Assessment & Plan (1) HTN (hypertension): Plan: now more severe HTN in setting of ongoing obligate dexamethasone. sbp 160-170s since admission; 170-180s yesterday in setting of fever, steroids. no sx. -would not eval for nephrotic syndrome yet as we have good reasons above for HTN.\ goal is SBP in 150s for the time being. he came in with single agent BP med and now is on 5 agents !!!! he does not have a steady health care nor a steady belief in modern Medicine. Will have to use the Simplest Once daily meds for BP. Stop Hydralazine continue hydralazine 10mg IV q6 prn sbp >180 and labetalol 5 mg IV q4h prn sbp > 180 if can't have hydralazine Continue labetalol 200 mg bid as of this AM Raise hctz/trimaterene to 1 tab of 37.5 continue amlodipine 10 mg daily Stop oral Phos--last was almost high at 4.4. check Phos in AM. Stop oral KCL Raise Lisinopril to 40 daily. Care coordinated w/ Dr Mulligan regarding BP, BP med changes, need for ongoing labs, I/O >> we are in agreement. (2) YOSEPH (acute kidney injury): Plan: resolved nonoliguric Stage 1 YOSEPH on CKD 3B, unknown proteinuria status, baseline creatinine 2.1 as far as we know. presented w/ creatinine 2.8; down to 2.1 today. still at significant risk for worsening renal function w/ ongoing fever, vanco/gent dosing, labile and often severe HTN. on vancomycin and ceftriaxone; defer to ID/primary service if further gent neede d -daily bmp -continue avoidance of nsaids, nephrotoxins unless life/limb saving -suggest dose vancomycin by level >> vanco level today 9.3; had another vanco dose today; cont to dose by level -no need for urgent dialysis -cont strict I/O (3) CKD (chronic kidney disease) stage 3, GFR 30-59 ml/min: Plan: CKD 3B w/ presumptove baseline 2.1, eGFR 33 >spot prot/creat as OP or here if HTN persists w/o cause -BP control will be crucial as OP; did explain this (4) Streptococcus pneumoniae meningitis: Plan: on vanco and ceftriaxone; hopefully can stop vanco soon pending sensitivities concern for CSF leak to be repaired/evaluated as OP Subjective no interval events; ongoing HTN w/o chest pain, sob, focal numbness/weakness. he feels normal now. Review of Systems Review of Systems: All systems reviewed & are unremarkable except as noted in Subjective Physical Exam Constitutional: well developed, well nourished, average body habitus, + altered mental status (? slight confusion) and cooperative; no acute distress Eyes: EOM intact bilaterally ENMT: Mouth: + dry oral mucous membranes Respiratory: normal respiratory effort and + tachypneic (slight); no respiratory distress and no cough Auscultation: + diminished lung sounds Cardiovascular: RRR, no murmur, no edema Gastrointestinal (Abdomen): Inspection/Auscultation: normal bowel sounds Percussion/Palpation: abdomen soft; abdomen nontender Musculoskeletal: Extremities: strength 5/5 throughout Skin: no rashes, warm and dry (quite plethoric ) Psychiatric: Orientation: alert and oriented x 3 Results & Data Vital Signs (Past 12 Hours) Vital Signs Temp Pulse Pulse Resp BP Pulse Ox O2 Del Method 04/04/24 07:34 36.8 C 62 16 154/73 H 94 Room Air 04/04/24 03:16 36.7 C 88 17 136/66 98 Room Air 04/03/24 23:10 36.6 C 76 16 130/66 98 Room Air 04/03/24 22:00 58 L
[2024-04-04 11:12] LABS: Q Fever IgG Phase II Ttr Rflx 1:16 titer; Q Fever IgG,Phase I Titer(Rflx 1:16 titer
--- NOTE | 2024-04-04 14:44 | Hospitalist Progress Note ---
Date of Service April 04, 2024 Assessment & Plan (1) Streptococcus pneumoniae meningitis: (2) Acute mastoiditis of left side: (3) NSVT (nonsustained ventricular tachycardia): (4) YOSEPH (acute kidney injury): (5) Sepsis: (6) CKD (chronic kidney disease) stage 3, GFR 30-59 ml/min: (7) HTN (hypertension): Plan Patient presents sepsis due to strep meningitis and mastoiditis. Patient has significantly improved. Final recommendations from infectious disease recommending 2 weeks of IV ceftriaxone. Through 04/11/2024 PICC/midline consent obtained Case management to assist with setting up home antibiotics Communication with nephrology, adjusted oral antihypertensive medications to simplify regimen, blood pressure significantly improved Nuria Bauman at bedside Admission and Anticipated Discharge Date Admission Date: March 27, 2024 Subjective Patient is feeling well. Eager to get home. Still little bit of tenderness and left lower jaw/ear area Physical Exam Physical Exam: Constitutional: Alert, ambulatory, nontoxic HEENT: Mucous membranes moist. Lungs: Clear to auscultation, decreased, no wheezes rales or rhonchi CV: S1-S2, regular Abdomen: Soft, nontender, nondistended Extremities: No significant edema Neuro: No focal deficits Psych: Cooperative, normal mood Results & Data Results & Data Vital Signs (Past 12 Hours) Vital Signs Temp Pulse Pulse Resp BP Pulse Ox O2 Del Method 04/04/24 13:00 67 04/04/24 12:15 36.4 C L 62 16 108/67 94 Room Air 04/04/24 07:34 36.8 C 62 16 154/73 H 94 Room Air 04/04/24 05:40 56 L 04/04/24 03:16 36.7 C 88 17 136/66 98 Room Air Diagnostic Findings Reviewed imaging, laboratory and diagnostic studies. Pertinent findings as below. Culture from middle ear no specific growth
[2024-04-04 19:00] VITALS: RESP 16
[2024-04-04 19:08] LABS: CSF, LDH 32 U/L (<=25); Cryptococcal Antigen Not Detected (Not Detected); Lyme DNA PCR CSF or Synovial Not Detected (Not Detected); Lyme DNA Source CSF; Lyme IgG Band Pattern CSF DNR; Lyme IgG CSF NO BANDS DETECTED; Lyme IgM Band Pattern CSF DNR; Lyme IgM CSF NO BANDS DETECTED; Source CSF; VDRL Qualitative CSF Nonreactive (Nonreactive); West Nile Virus, PCR Source CSF; West Nile Virus, PCR, CSF NOT DETECTED (NOT DETECTED)
[2024-04-04] MEDS: lisinopril 40 MG TAB PO SCH (20:25)
[2024-04-05 08:04] LABS: Hemoglobin 12.5 g/dl (14.0-18.0); Mean Corpuscular Hemoglobin 29.9 pg (25.0-34.0); Mean Corpuscular Hgb Conc 33.8 g/dL (32.0-36.0); Mean Corpuscular Volume 88.5 fL (80.0-100.0); Mean Platelet Volume 9.5 fL (9.4-12.4); Platelet Count 171 K/uL (130-400); RDW Coefficient of Variation 14.4 % (11.5-14.5); RDW Standard Deviation 45.6 fL (36.4-46.3); Red Blood Count 4.18 M/uL (4.70-6.10); White Blood Count 9.87 K/ul (4.8-10.8)
[2024-04-05 08:16] LABS: BUN Creatinine Ratio 29.4 (10-20); Calcium 7.3 mg/dl (8.6-10.3); Creatinine Clr Calc Pharmacy 31.2 ml/min; Phosphorus 4.3 mg/dl (2.5-4.9); Potassium 4.4 mmol/L (3.5-5.1)
[2024-04-05] MEDS: amLODIPine BESYLATE 5 MG TAB PO SCH (08:17)
[2024-04-05] MEDS: PANTOprazole 40 MG TAB PO SCH (08:18)
[2024-04-05] MEDS: TRIAMTERENE/HCTZ 37.5/25MG TAB PO SCH (08:18)
[2024-04-05 14:39] VITALS: BP 128/69; PULSE 67; TEMP 97.9; O2SAT 92
--- NOTE | 2024-04-05 15:14 | Discharge Summary ---
Discharge Summary Date of Service April 05, 2024 Principal Dx & Hospital Course #1 = Principal Diagnosis (1) Streptococcus pneumoniae meningitis: (2) Acute mastoiditis of left side: (3) NSVT (nonsustained ventricular tachycardia): (4) YOSEPH (acute kidney injury): (5) Sepsis: (6) CKD (chronic kidney disease) stage 3, GFR 30-59 ml/min: (7) HTN (hypertension): Plan Patient presented to the emergency department with fever and confusion. Along with some left ear pain. In the emergency department had significant leukocytosis and imaging consistent with left mastoiditis. Exam noted some neck rigidity. Patient was admitted to the hospital for concern for possible meningitis. Patient underwent lumbar puncture and was treated empirically for both viral and bacterial meningitis. Neurology and infectious disease consulta tion was obtained initially. And additionally nephrology consultation was obtained due to his chronic renal failure. Patient also had significant issues with hypertension. And numerous medications were added to manage his blood pressure. Cardiology consultation was obtained for elevated troponin in the setting of sepsis. He was treated with beta-blockers for his blood pressure. Echocardiogram was performed which showed normal ejection fraction with no significant wall motion abnormalities. ENT consultation was obtained for mastoiditis/otitis. Patient underwent myringotomy with cultures obtained. Ultimately it was felt that the patient had an otitis media. He was treated with ciprofloxacin drops for 7 days while in the hospital. CSF, blood, middle ear fluid cultures were monitored. No definitive growth was obtained. Determined to treat the patient as possible strep meningitis. Recommended ceftriaxone twice daily for 2 weeks. With sterile cultures midline was placed. Case management coordinated home IV antibiotics. On the day of discharge the patient was feeling well. His ear pain had essentially resolved. He is up and ambulatory. Family is at the bedside where that continue The antibiotics through 04/11/2024. Home health care through [facility] has been arranged and will help with monitoring and management of outpatient antibiotics. Patient's blood pressure had been significantly improved and managed on his current oral medications. His renal dysfunction had stabilized at baseline. He will follow- up with his PCP and nephrology. Notes For Next Care Provider Medication Changes From Visit Lisinopril dose increased Amlodipine, labetalol, triamterene hydrochlorothiazide added to antihypertensive regimen Ceftriaxone for meningitis Admission HPI Per Admitting Provider 73-year-old male with history of hypertension on lisinopril, chronic kidney disease, presenting with fever and confusion which started yesterday. History obtained from patient's and son at the bedside. 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 He was doing fine until yesterday when upon waking up, he had an episode of vomiting and was noted to be weak. He also developed a fever, highest taken was 102 as per the . Through the day, the patient became a progressively weak and confused-not conversant, mostly staring as per family. He was also complaining of some left-sided ear pain. Patient also had 2 episodes of watery stools. Today, patient was still noted to be weak-cannot get up from bed, and confused. Patient brought to the ER via EMS. At the ER, blood pressure 147/80, heart rate 97, respiratory 22, 94% on room air, 37 C WBC 18,000 Creatinine 2.8 Chest x-ray: There is either a small medial left basilar infiltrate or small hiatal hernia. CT head: Chronic left mastoiditis CT abdomen pelvis:1. Very small amounts of nonspecific free fluid in the pelvis without abscess, inflammation or intestinal obstruction. 2. Trace bilateral pleural effusions and dependent atelectasis. 3. 3.4 cm distal abdominal aortic aneurysm without rupture. Recommend abdomen/pelvis CT or MR imaging follow-up in 3 years. Patient given IV fluids, IV ceftriaxone at the ER. As per patient's and son, patient's mental status seems to be improved although still not at baseline He is awake and alert, conversant but mostly slow to respond on my exam. He reports some mild left-sided headache, and neck pain when bending forward, as well as some left-sided ear discomfort. Denies photophobia. Denies cough, shortness of breath, abdominal pain He reports some urinary frequency over the past few months Admission Exam Per Admitting Provider See H&P Discharge Exam Constitutional: Alert, nontoxic HEENT: Mucous membranes moist. Lungs: Clear to auscultation, decreased, no wheezes rales or rhonchi CV: S1-S2, regular Abdomen: Soft, nontender, nondistended Extremities: No significant edema Neuro: No focal deficits Psych: Cooperative, normal mood Updated Medication List Medication Instructions Recorded Confirmed Type lisinopril 20 mg tablet 20 mg PO HS 03/27/24 03/27/24 History L.acidop,casei,lactis,rham-B.lact,all 1 cap PO DAILY #30 caps 04/05/24 Rx 625 mg (10 billion cell) capsule (Advanced Probiotic) amlodipine 5 mg tablet (Norvasc) 10 mg (2 x 5 mg) PO QAM #30 tabs 04/05/24 Rx labetalol 200 mg tablet 200 mg PO BID #60 tabs 04/05/24 Rx lisinopril 40 mg tablet 40 mg PO HS #30 tabs 04/05/24 Rx pantoprazole 40 mg tablet,delayed 40 mg PO QAM #30 tabs 04/05/24 Rx release triamterene 37.5 1 tab PO QAM #30 tabs 04/05/24 Rx mg-hydrochlorothiazide 25 mg tablet Hospital Stay Data Consultations 03/27/24 17:54 ED Decision to Admit Stat 03/28/24 16:55 Consult Infectious Diseases Routine 03/28/24 16:59 Consult Neurology Routine 03/29/24 08:50 Consult Nephrology Routine 03/29/24 12:19 Consult Cardiology Routine 03/29/24 12:21 Consult Otolaryngology (Head and Neck) Routine Procedures Performed Operation Date: 03/30/24 07:15 Actual Procedures p Left Myringotomy(Left) - Frankie Harris, Diagnostic Imagining Performed 03/27/24 15:30 CT head/brain wo con Stat 03/27/24 15:46 CT abd pelvis wo con Stat 03/27/24 19:05 CT chest diagnostic wo con Routine 03/28/24 19:54 IR lumbar puncture diagnostic Routine 03/29/24 16:11 CT temporal bones wo con Stat MRI Brain [MR brain wo con] Stat Reviewed imaging, laboratory and diagnostic studies. Pertinent findings as below. 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 Total Time Total Time Spent Total Time Spent (In Minutes): 40 Home Health Attestation I certify that this patient is under my care and that I, or a physicians wet process assistant head miller working with me, had a face to-face encounter that meets the home health [id number] encounter requirements with this patient. The encounter with the patient was in whole, or in part, for the following medical condition, which is the primary reason for home health care (list medical condition): Sepsis I certify that, based on my findings, the following services are medically necessary home health services: My clinical findings support the need for the above services because: Skilled Nsg Assessment Further, I certify that my clinical findings support that this patient is homebound (i.e. absences from home require considerable and taxing effort and are for medical reasons or spiritism services or infrequently or of short duration when for other reasons) because: Transportation Assistance/Unable to Leave Home Unassisted Certification for Home Health Services: Based on the above findings, I certify that this patient is confined to the home and needs intermittent assisted care, physical therapy and/or speech therapy or continues to need occupational therapy. The patient is under my care, and I have initiated the establishment of the plan of care. This patient will be followed by a physician who will periodically review the plan of care.
== END 2024-04-05 18:30 | disposition home health service (06) | DRG 853 ==
LOC: ED 15:24 → SUATTDRO 18:44 → 2S 18:44 → 3W 04-04 18:46